=== PATIENT | male | born 1935 | race Caucasian/White ===

== ENCOUNTER → 2020-06-12 13:43 | Outpatient (BNVA) | payer MEDICARE, MEDICAID, SELFPAY | PROVIDERS: PCP Family Medicine; Visit Provider Internal Medicine Rheumatology | DX: M05.79 Rheumatoid arthritis with rheumatoid factor of multiple sites without organ or systems involvement (principal); Z79.899 Other long term (current) drug therapy; Z11.59 Encounter for screening for other viral diseases; Z11.1 Encounter for screening for respiratory tuberculosis; M19.90 Unspecified osteoarthritis, unspecified site; M21.222 Flexion deformity, left elbow; M24.521 Contracture, right elbow; M21.261 Flexion deformity, right knee; M21.262 Flexion deformity, left knee | CPT/HCPCS: 36415; 82306; 85651; 86140; 86431; 86480; 86704; 86803; 87340; 99204 ==

== ENCOUNTER 2021-10-11 07:56 | Emergency (ER) | payer MEDICARE, MEDICAID, SELFPAY ==
[2021-10-11 08:04] VITALS: BP 126/81; PULSE 95; RESP 18; TEMP 36.2; O2SAT 98; BMI 20.5
--- NOTE | 2021-10-11 08:20 | CTR_ITS ---
PROCEDURE INFORMATION: Exam: CT Head Without Contrast Exam date and time: 10/11/2021 8:20 AM Age: 86 years old Clinical indication: Episode of dizziness TECHNIQUE: Imaging protocol: Computed tomography of the head without contrast. Radiation optimization: All CT scans at this facility use at least one of these dose optimization techniques: automated exposure control; mA and/or kV adjustment per patient size (includes targeted exams where dose is matched to clinical indication); or iterative reconstruction. COMPARISON: No relevant prior studies available. RADIATION DOSE METRICS: Total DLP (mGy-cm): 729.91 FINDINGS: Brain: No acute appearing brain parenchymal abnormality. No intracranial hemorrhage. No extraaxial fluid collections. There is diffuse cerebral atrophy. Cerebral ventricles: No hydrocephalus when allowing for the atrophy. Paranasal sinuses: Mild mucoperiosteal thickening. Mastoid air cells: Bilateral mastoid air cell effusions, more so on the right. Auditory system: Cerumen in both external auditory canals, more so on the left. The internal auditory canals are within normal limits. Vasculature: There is calcified atherosclerotic plaque involving the both cavernous internal carotid arteries as well as the V4 segments of both vertebral arteries. Bones/joints: No calvarial fracture. Soft tissues: No acute soft tissue abnormality. CT/CT head wo con* [id number] IMPRESSION: No acute intracranial abnormality.
--- NOTE | 2021-10-11 08:21 | W.ED.NAVMDI ---
HPI - Nausea/Vomiting/Diarrhea General: Chief complaint: Nausea/Vomiting/Diarrhea Stated complaint: Hasnt eaten, dizzy, vomitting Time Seen by Provider: 10/11/21 08:08 History of Present Illness: Patient is an 86-year-old male comes to the ED with nausea and vomiting. Symptoms started yesterday around 4 PM. He was outside walking in his front yard when he felt some dizziness. He describes the dizziness as sort of a spinning sensation. He got really nauseous and then went inside to sit down in his recliner. He ended up having multiple episodes of emesis after that. Denies any chest pain, shortness of breath or syncopal episode. His dizziness resolved in the evening. He was still having nausea and tried to drink some water later that night and was unable to keep it down and threw it back up. This morning he got up and he wasn't having any dizziness but tried to take a sip of Sprite and it caused him to dry heave. Endorses still having nausea currently but no other symptoms. Denies any episode like this in the past. Patient does have a history of cataracts and right and has had multiple surgeries to address cataracts. He currently sees Dr. Shirley and has an appointment with him on this coming October 14. Right eye vision is still cloudy and he can hardly see out of it which has been going on now since March 2021 when he has most recent cataract surgery. Patient also says he has had increased pressures in right eye that Dr. Shirley has him using eyedrops daily to help with that. Associated nausea: Yes Associated symtoms: Reports dizziness and nausea; Denies change in vision, chest pain, dysuria, fatigue, headache(s) or palpitations Review of Systems Const: Denies: fever(s), chills or fatigue Eyes: Denies: change in vision or eye discomfort ENMT: Denies: throat pain, odynophagia, nasal discharge or nasal congestion Card: Denies: chest pain, palpitations, edema, swelling of feet/ankles, dyspnea on exertion or orthopnea Resp: Denies: dyspnea, productive cough or non-productive cough GI: Reports: nausea and vomiting; Denies: abdominal pain, diarrhea, constipation or hematochezia : Denies: flank pain, difficulty urinating, dysuria or hematuria Musc: Denies: neck pain, back pain or extremity swelling Skin/Breast: Denies: rash or new lesions Neuro: Reports: dizziness; Denies: headache(s), numbness in extremities, weakness in extremities or frequent falls PFSH ED PFSH: Medical History 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, left knee Flexion deformity, right knee High risk medication use History of skin cancer in adulthood Immunization counseling Joint pain Osteoarthritis Seropositive rheumatoid arthritis of multiple sites Surgical History History of cholecystectomy Family History Other Cancer Diabetes Hx of migraines Denies family history of Rheumatoid arthritis Lupus Lung disease Hypertension Stroke Social History Smoking and tobacco status: former smoker Alcohol intake: former History of recent travel: No Physical Exam Const: COMMON NORMALS: no acute distress, patient oriented x3 and alert GENERAL APPEARANCE: cooperative and comfortable HENMT: COMMON NORMALS: normocephalic HEAD & SCALP: normocephalic MOUTH: Normal oral and palatal mucosa present THROAT: posterior oropharynx normal and uvula midline Eye: COMMON NORMALS: Equal, round and reactive pupils present PUPIL: Yes Equal, round and reactive pupils present Neck/C-Spine: COMMON NORMALS: supple GENERAL: Yes normal visual inspection Resp: COMMON NORMALS: normal respiratory effort, No retractions, No use of accessory muscles and clear to auscultation bilaterally AUSCULTATION: clear to auscultation bilaterally Cardio: COMMON NORMALS: regular rate, regular rhythm, S1 normal heart sound present, S2 normal heart sound present, No gallops present (Cardio), No clicks present (Cardio), No murmurs present (Cardio) and Peripheral pulses 2+ throughout RATE: regular rate RHYTHM: regular rhythm HEART SOUNDS: S1 normal heart sound present and S2 normal heart sound present PERIPHERAL PULSES: Peripheral pulses 2+ throughout GI: COMMON NORMALS: Normal to inspection, nondistended, normoactive bowel sounds present, Soft to palpation, non-tender and no masses PALPATION: Yes Soft to palpation : COMMON NORMALS: Yes no CVA tenderness BLADDER/KIDNEY EXAM: Yes no CVA tenderness Back/Pelvis: COMMON NORMALS: no CVA tenderness Extremity: COMMON NORMALS: normal to inspection and no pedal edema Neuro: COMMON NORMALS: patient oriented x3, CN's II-XII intact bilaterally, moves all extremities, no focal motor deficits and no sensory deficits noted SENSORIUM/ORIENTATION: Yes alert SENSORY EXAM: Yes extremities (intact) MOTOR EXAM: 5/5 motor strength present throughout Skin: GENERAL SKIN EXAM: dry skin Course ED course: I talked with Dr. Addison about patient case and his episode of dizziness. Dr. Addison reviewed all the labs, CT of head and EKGs. We both went in and talked with patient about plan of care and further evaluation of dizziness. Dr. Addison wanted patient to do an MRI of his head here in the ED. Patient said he did not want to do an MRI of his head. I discussed with patient, his daughter and while in the room about potential risks of not performing the MRI to rule out stroke. Patient understood and still agreed that he did not want to get the MRI imaging today and would like to go home. He says he is not having any current dizziness. He agreed he would sign AMA form. Reevaluation(s): Reevaluation #1: Patient's heart rate has been fluctuating a lot while here in the ED. He is not complaining of any palpitations and denies any history of any arrhythmias. Denies any chest pain currently. Ordered an EKG, troponin and BNP patient to look at heart. Time: 09:47 Reevaluation #2: After patient received a liter of IV fluids and Zofran he says his nausea has improved. He states that he is feeling better. We gave him some p.o. water and he is able to keep it down and not having any episodes of emesis or dry heaving. Time: 12:25 Vital Signs: Vital signs: Vital Signs Temperature 98.1 F 10/11/21 13:34 Pulse Rate 20 L 10/11/21 13:34 Respiratory Rate 18 10/11/21 13:34 Blood Pressure 127/72 10/11/21 09:30 Pulse Oximetry 96 10/11/21 09:30 MDM - Nausea/Vomiting/Diarrhea Medical Decision Making Patient is an 86-year-old male comes to the ED with nausea and vomiting episode of dizziness. Labs are unremarkable. Troponin negative. EKG showed no ST segment elevation or depression seen. CT of head showed no acute findings. I talked with Dr. Addison about patient case and his episode of dizziness. Dr. Addison reviewed all the labs, CT of head and EKGs. We both went in and talked with patient about plan of care and further evaluation of dizziness. Dr. Addison wanted patient to do an MRI of his head here in the ED. Patient said he did not want to do an MRI of his head. I discussed with patient, his daughter and while in the room about potential risks of not performing the MRI to rule out stroke. Patient understood and still agreed that he did not want to get the MRI imaging today and would like to go home. Patient's and daughter agreed with patient's decision. says he is not having any current dizziness. He agreed he would sign AMA form and discharged home. Lab Data I reviewed the patient's lab results. : 10/11/21 08:27 10/11/21 08:[address] 10/11/21 08:20 IMPRESSION: No acute intracranial abnormality. Laboratory Results WBC 14.2 10^3/uL (4.0-10.0) H 10/11/21 08: RBC 4.97 10^6/uL (4.1-5.3) 10/11/21 08: Hgb 16.5 g/dL (11.7-16.6) 10/11/21 08: Hct 48.7 % (42.0-52.0) 10/11/21 08: MCV 98.0 fl (80-94) H 10/11/21 08: MCH 33.2 pg (28.0-34.0) 10/11/21 08: MCHC 33.9 g/dL (30.0-36.0) 10/11/21: RDW 13.6 % (12.1-15.1) 10/11/21: Plt Count 184 10^3/cmm (130-400) 10/11/21 08: MPV 9.5 fL (7.4-10.4) 10/11/21 08: Neut % (Auto) 85.8 % 10/11/21 08: Lymph % (Auto) 6.3 % 10/11/21 08: [place] % (Auto) 6.9 % 10/11/21 08:27 Eos % (Auto) 0.3 % 10/11/21 08:27 Baso % (Auto) 0.3 % 10/11/21 08: Neut # (Auto) 12.17 10^3/uL (1.8-7.7) H 10/11/21 08:27 Lymph # (Auto) 0.9 10^3/uL (0.8-4.8) 10/11/21 08: [place] # (Auto) 1.0 10^3/uL (0.2-0.9) H 10/11/21 08:27 Eos # (Auto) 0.0 10^3/uL (0.0-0.8) 10/11/21 08: Baso # (Auto) 0.0 10^3/uL (0.0-0.1) 10/11/21 08: Nucleated RBC % (auto) 0 % 10/11/21 08: Nucleated RBCs # 0.0 /100WBC 10/11/21 08:27 Sodium 136 mmol/L (136-145) 10/11/21 08: Potassium 3.8 mmol/L (3.5-5.1) 10/11/21 08: Chloride 97 mmol/L (98-107) L 10/11/21 08:27 Carbon Dioxide 25 mmol/L (22-29) 10/11/21 08:27 Anion Gap 17.8 (5-19) 10/11/21 08:27 BUN 15 mg/dL (8-23) 10/11/21 08: Creatinine 0.7 mg/dL (0.7-1.2) 10/11/21 08:27 GFR Calculation Not Reportable 10/11/21 08: Glucose 128 mg/dL (65-115) H 10/11/21 08:27 Calculated Osmolality 284 mOsm/kg (285-295) L 10/11/21 08:27 Calcium 9.9 mg/dL (8.5-10.5) 10/11/21 08:27 Total Bilirubin 1.0 mg/dL (0.15-1.2) 10/11/21 08:27 AST 22 U/L (0-40) 10/11/21 08:27 ALT 17 U/L (0-41) 10/11/21 08: Alkaline Phosphatase 125 IU/L (40-130) 10/11/21 08:27 Troponin T Baseline 14 ng/L (0-15) 10/11/21 08: Troponin T 120 Minute 15.99 ng/L (0-15) H 10/11/21 11:20 Delta Troponin T 1.99 ABS# (0-10) 10/11/21 11:20 NT-Pro-B Natriuret Pep 468 pg/mL (0-450) H 10/11/21 08:27 Total Protein 7.0 g/dL (6.6-8.7) 10/11/21 08: Albumin 4.9 g/dL (3.5-5.2) 10/11/21 08: Globulin 2.1 g/dL (1.3-4.6) 10/11/21 08: Lipase 15 U/L (13-60) 10/11/21 08:27 Urine Color Yellow (Yellow) 10/11/21 10:31 Urine Appearance Clear (CLEAR) 10/11/21 10:31 Urine pH 7 (5-7) 10/11/21 10:31 Ur Specific [place] 1.010 (1.005-1.030) 10/11/21 10:31 Urine Protein 1+ (Negative) H 10/11/21 10:31 Urine Glucose (UA) Norm (Normal) 10/11/21 10:31 Urine Ketones Negative (Negative) 10/11/21 10:31 Urine Blood 2+ (Negative) H 10/11/21 10:31 Urine Nitrate Negative (Negative) 10/11/21 10:31 Urine Bilirubin Neg (Negative) 10/11/21 10:31 Urine Urobilinogen Norm mg/dL (Negative) 10/11/21 10:31 Ur Leukocyte Esterase Negative (Negative) 10/11/21 10:31 Urine RBC 5-10 /hpf (0-2) H 10/11/21 10:31 Urine WBC Rare /hpf (0-5) 10/11/21 10:31 Ur Squamous Epith Cells Rare /hpf (0-5) 10/11/21 10:31 Amorphous Sediment Not Reportable 10/11/21 10:31 Urine Bacteria None /hpf (NONE) 10/11/21 10:31 Urine Mucus Trace /hpf 10/11/21 10:31 EKG Data EKG 2: EKG interpretation date: 10/11/21 Interpretation: Sinus rhythm with occasional supraventricular premature complexes. No ST segment elevation or depression seen. Discharge Plan Discharge Patient Disposition: Home Clinical Impression: Episode of dizziness, Mild nausea and vomiting Condition: Stable Prescriptions: New ondansetron 4 mg tablet,disintegrating 4 mg PO Q8H PRN (Reason: nausea and vomiting) Qty: 15 0RF No Action ibuprofen 200 mg capsule 600 mg PO Q8H 0RF Glucos Chond Cplx Advanced 750 mg-100 mg- 125 mg-1.65 mg tablet See Rx Instructions .ROUTE .COMPLEX 0RF Rx Instructions: Takes daily3 cholecalciferol (vitamin D3) 125 mcg (5,000 unit) capsule 125 mcg PO DAILY 0RF ascorbic acid (vitamin C) 1,000 mg tablet 1 gm PO DAILY 0RF folic acid 1 mg tablet 1 mg PO DAILY Qty: 90 0RF methotrexate sodium 2.5 mg tablet See Rx Instructions PO Q7D Qty: 40 0RF Rx Instructions: Split dose, 4tabs in am and 4tabs in pm on same day once a week. Xeljanz 5 mg tablet 5 mg PO BID Qty: 60 0RF Discharge Orders: Discharge ED (Routine); Ordered 10/11/21 Ordered By: Doug Antonio Referrals: Sage Black MD [Primary Care Provider] - Discharge Diet: Regular Discharge Activity: Increase activity as tolerated Activity Restrictions/Additional Instructions: Follow-up with primary care physician in the next 3 to 5 days for reevaluation. Take medications as prescribed. Make sure you drink plenty of fluids and stay hydrated. Return to the ER or your medical provider if condition worsens or you have any other episodes of dizziness. Please read and understand discharge instructions. Thank you for choosing [facility] for your healthcare needs today. Please realize this is an emergency room and that we are providing you with a medical screening exam and this may not be complete and all inclusive of all the testing and or work up that you may need to determine your ailment or severity of your illness. It is very important that you follow up as instructed or that you return to the Emergency Department should you have concerns or if your condition changes or worsens in any way. Coding Level of Care Code ED Bi Report Developer for Chg Fwd Exam Comprehensive
[2021-10-11 08:30] VITALS: BP 134/81; PULSE 91
[2021-10-11] MEDS: ondansetron 2 mg/ML SDV 2 mL 4 MG IVP (08:37)
[2021-10-11] MEDS: sodium chloride 0.9% 1,000 ML 999 ML IV (08:38)
[2021-10-11 08:41] LABS: Basophils % 0.3 %; Eosinophils % 0.3 %; Hematocrit 48.7 % (42.0-52.0); Hemoglobin 16.5 g/dL (11.7-16.6); Lymphocytes # 0.9 10^3/uL (0.8-4.8); Lymphocytes % 6.3 %; Mean Corpuscular HGB Conc 33.9 g/dL (30.0-36.0); Mean Corpuscular Hemoglobin 33.2 pg (28.0-34.0); Mean Platelet Volume 9.5 fL (7.4-10.4); Monocytes % 6.9 %; Neutrophils # 12.17 10^3/uL (1.8-7.7); Neutrophils % 85.8 %; Nucleated Red Blood Cells % 0 %; Platelet Count 184 10^3/cmm (130-400); Red Blood Count 4.97 10^6/uL (4.1-5.3); Red Cell Distribution Width 13.6 % (12.1-15.1); White Blood Count 14.2 10^3/uL (4.0-10.0)
[2021-10-11 08:58] LABS: Alanine Aminotransferase 17 U/L (0-41); Albumin Level 4.9 g/dL (3.5-5.2); Alkaline Phosphatase 125 IU/L (40-130); Anion Gap 17.8 (5-19); Aspartate Amino Transferase 22 U/L (0-40); Blood Urea Nitrogen 15 mg/dL (8-23); Calcium 9.9 mg/dL (8.5-10.5); Carbon Dioxide 25 mmol/L (22-29); Chloride 97 mmol/L (98-107); Globulin 2.1 g/dL (1.3-4.6); Glucose 128 mg/dL (65-115); Lipase 15 U/L (13-60); Osmolality Calculated 284 mOsm/kg (285-295); Potassium 3.8 mmol/L (3.5-5.1); Sodium 136 mmol/L (136-145)
[2021-10-11 09:01] VITALS: BP 136/78; PULSE 91; RESP 18; TEMP 36.6; O2SAT 99
[2021-10-11 09:30] VITALS: BP 127/72; PULSE 87; RESP 18; TEMP 36.7; O2SAT 96
--- NOTE | 2021-10-11 09:46 | ECG_ITS ---
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 Measurements Intervals [place] Rate: 92 P: 88 IN: 183 QRS: 18 QRSD: 80 T: 48 QT: 333 QTc: 413 Interpretive Statements SINUS RHYTHM WITH OCCASIONAL SUPRAVENTRICULAR PREMATURE COMPLEXES LEFT ATRIAL ENLARGEMENT [-0.15mV P-WAVE IN V1/V2] SEPTAL MYOCARDIAL INFARCTION , PROBABLY OLD [40+ ms Q WAVE IN V1/V2] No previous ECG available for comparison Electronically Signed On 10-11-2021 21:52:05 CALCULATOR OPERATOR by Joey Chavez M.D. [id number]
[2021-10-11 10:19] LABS: Troponin(5th) Baseline 14 ng/L (0-15)
[2021-10-11 10:29] LABS: NT Pro B Type Natriuretic Pept 468 pg/mL (0-450)
--- NOTE | 2021-10-11 11:46 | ECG_ITS ---
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 Measurements Intervals [place] Rate: 87 P: 75 DC: 154 QRS: 35 QRSD: 98 T: 64 QT: 361 QTc: 437 Interpretive Statements SINUS RHYTHM WITH OCCASIONAL SUPRAVENTRICULAR PREMATURE COMPLEXES POSSIBLE RIGHT VENTRICULAR CONDUCTION DELAY [RSR (QR) IN V1/V2] SEPTAL MYOCARDIAL INFARCTION , PROBABLY OLD [40+ ms Q WAVE IN V1/V2] Compared to ECG 10/11/2021 08:56:52 Atrial abnormality no longer present Myocardial infarct finding still present Electronically Signed On 10-12-2021 17:16:30 DIRECTOR MEDICAL by Joey Chavez M.D. [id number]
[2021-10-11 11:52] LABS: Add Urine Microscopic? YES; Bilirubin Urine Neg (Negative); Blood Urine 2+ (Negative); Glucose Urine UA Norm (Normal); Ketones Urine Negative (Negative); Leukocyte Esterase Urine Negative (Negative); Nitrate Urine Negative (Negative); Protein Urine 1+ (Negative); Urine Appearance Clear (CLEAR); Urine Color Yellow (Yellow); Urobilinogen Urine Norm (Negative); pH Urine 7 (5-7)
[2021-10-11 11:53] LABS: Squamous Epithelial Cell Urine RARE /hpf (0-5); WBC Urine RARE /hpf (0-5)
[2021-10-11 11:54] LABS: Add Urine Culture? No; Mucus Urine TRACE /hpf
[2021-10-11 12:00] LABS: Troponin 5 2HR 15.99 ng/L (0-15)
[2021-10-11 12:03] LABS: Troponin 5 2HR Delta 1.99 ABS# (0-10)
[2021-10-11 13:34] VITALS: PULSE 20; RESP 18; TEMP 36.7
--- NOTE | 2021-10-11 13:39 | PC.NURSE ---
Reviewed all dc instr w dtr & spouse, dc'd IID, declined WC, ambulated from unit.
== END 2021-10-11 13:54 | disposition home or self-care (01) ==
PROVIDERS: Emergency Provider Physician Assistant; PCP Family Medicine
DX: R11.2 Nausea with vomiting, unspecified (principal); R42 Dizziness and giddiness; Z87.891 Personal history of nicotine dependence
CPT/HCPCS: 36415; 70450; 80053; 81001; 83690; 83880; 84484; 85025; 93005; 96361; 96374; 99284; J2405; J7030

== ENCOUNTER 2024-01-16 08:39 | Inpatient (IN) | payer MEDICARE, MEDICAID, SELFPAY ==
[2024-01-16] VITALS (8 sets, daily range): BP systolic 102–134; BP diastolic 59–81; PULSE 80–118; RESP 14–18; TEMP 36.4–37.2; O2SAT 93–99; BMI 18.2; BMI 20.4
--- NOTE | 2024-01-16 08:44 | XR_ITS ---
WS: [id number] XR chest 1V portable [id number] REASON FOR EXAM: dyspnea/cough FINDINGS: No previous examinations for comparison. Normal heart size. Significant tortuosity and ectasia of the thoracic aorta. Calcified granulomas disease in both hemithoraces. No acute pulmonary parenchymal abnormality. Increased opacity in the apex of the right hemithorax which may in part be due to overlying soft tiss ue. A more significant abnormality cannot be excluded from this examination. XR/XR chest 1V portable [id number] IMPRESSION: No definite acute abnormality. Increased density in the apex of the right hemit horax. Possibly a positional issue with increased overlying soft tissue. This r egion may be imaged on the scheduled CT scan of the cervical spine. Will review and this examination is completed.
[2024-01-16 09:11] LABS: Basophils % 0.7 %; Eosinophils # 0.2 10^3/uL (0.0-0.8); Eosinophils % 5.4 %; Hematocrit 28.4 % (37-53); Lymphocytes # 0.6 10^3/uL (0.8-4.8); Lymphocytes % 20.2 %; Mean Corpuscular HGB Conc 33.5 g/dL (30-55); Mean Corpuscular Hemoglobin 34.2 pg (27-33); Mean Corpuscular Volume 102.2 fl (82-101); Mean Platelet Volume 12.1 fL (7.4-10.4); Monocytes # 0.3 10^3/uL (0.2-0.9); Monocytes % 11.9 %; Neutrophils # 1.68 10^3/uL (1.8-7.7); Neutrophils % 60.7 %; Nucleated Red Blood Cells % 0 %; Platelet Count 46 10^3/cmm (157-399); Red Blood Count 2.78 10^6/uL (3.85-5.65); Red Cell Distribution Width 15.5 % (12.1-15.1); White Blood Count 2.77 10^3/uL (3.29-11.43)
--- NOTE | 2024-01-16 09:13 | XR_ITS ---
WS: [email or web address] XR hip RT 2-3V wo/w pel* [id number] REASON FOR EXAM: trauma FINDINGS: Intertrochanteric fracture which extends inferior to the lesser trochanter. Mild lateral displacement of a greater trochanteric fracture fragment and mild medial displacement of the lesser trochanteric fragment. XR/XR hip RT 2-3V wo/w pel* [id number] IMPRESSION: Intertrochanteric fracture right hip as above.
--- NOTE | 2024-01-16 09:17 | CT_ITS ---
WS: [id number] CT HEAD NONCONTRAST HISTORY: trauma TECHNIQUE: Contiguous axial imaging performed through the brain in 2.5 mm imaging. Bone and soft tiss ue windows. Sagittal and coronal reformats reviewed. All CT scans at [facility] use at least one of these dose optimization techniques: automated exposure control; mA and/or kV adjustment per pa tient size (includes targeted exams where dose is matched to clinical indication); or iterative recon struction. DLP: 2372.44 mGy.cm COMPARISON: 10/11/2021 No acute intracranial hemorrhage, midline shift or mass effect. Moderate atrophy and small vessel ischemic disease. No acute infarct. Moderate cerebellar atrophy. Ventricles: Ventricles and extra-axial spaces are dilated on the basis of atrophy. No inferior displacement of the cerebellar tonsils. Paranasal sinuses: Mucoperiosteal thickening throughout the ethmoid air cells. Mastoid air cells: Well pneumatized. Large amount of cerumen in the external auditory canals. Calvarium and scalp: No skull fracture. There is soft tissue edema centered over the RIGHT facial str uctures as visualized. This may be posttraumatic or infectious. CT/CT head wo con* [id number] IMPRESSION: 1. No acute intracranial hemorrhage or edema. 2. Moderate atrophy and small vessel ischemic disease. 3. No skull fracture. 4. Moderate soft tissue edema centered over the visualized RIGHT facial bones. This may be posttraumatic or infectious.
--- NOTE | 2024-01-16 09:17 | CT_ITS ---
WS: [id number] CT CERVICAL SPINE HISTORY: trauma TECHNIQUE: Contiguous 2.0 mm axial imaging performed through the entire cervical spine. Sagittal and coronal reformats also performed. All CT scans at [facility] use at least one of these dose o ptimization techniques: automated exposure control; mA and/or kV adjustment per patient size (include s targeted exams where dose is matched to clinical indication); or iterative reconstruction. DLP: 2372.44 mGy.cm COMPARISON: None available. Scoliosis cervical spine. Disc spaces are significantly narrowed throughout. Osteopenia. Lateral mass es are aligned and the odontoid process is intact. Erosive type changes are noted along several of the endplates along with disc base narrowing. Facet j oints remain normally aligned. Ankylosis across the LEFT C3-4 facet joint. C2-C3: Normal. C3-C4: Osteophytic ridging and facet joint arthritis and foraminal stenosis. C4-C5: Osteophytic ridging and facet arthritis. C5-C6: Marked osteophytic ridging with moderate bilateral facet joint arthritis and foraminal stenosi s. C6-C7: Osteophytic ridging encroaching upon the ventral thecal sac. Mild central and bilateral forami nal stenosis. C7-T1: Mild facet joint arthritis and foraminal narrowing. Vertebral artery plaque. Soft tissue edema and anasarca. Cervical carotid artery atherosclerosis. CT/CT cervical spin wo con* [id number] IMPRESSION: 1. No acute cervical spine fracture. 2. Multilevel facet joint arthritis and foraminal stenoses. 3. Osteopenia.
[2024-01-16 09:25] LABS: Alanine Aminotransferase 23 U/L (0-41); Albumin Level 2.9 g/dL (3.5-5.2); Alkaline Phosphatase 57 U/L (40-130); Aspartate Amino Transferase 21 U/L (0-40); Blood Urea Nitrogen 23 mg/dL (8-23); Calcium 8.5 mg/dL (8.5-10.5); Carbon Dioxide 21 mmol/L (22-29); Chloride 106 mmol/L (98-107); Creatine Phosphokinase 63 U/L (39-308); Creatinine Clr Calc Pharmacy 32.7594; Globulin 2.2 g/dL (1.3-4.6); Glucose 101 mg/dL (65-115); Osmolality Calculated 288 mOsm/kg (285-295); Sodium 137 mmol/L (136-145); Total Bilirubin 0.4 mg/dL (0.15-1.2); Total Protein 5.1 g/dL (6.6-8.7)
--- NOTE | 2024-01-16 09:25 | PC.PHAR ---
KATIA LOUIS [phone] PT HAS NOT TAKEN METHOTREXATE 2.5MG LAST FILL 12/07/23 28DS. CLEOCIN 300 MG DCD AND STARTED BACTRIM DS TWICE DAILY FOR 10 DAYS. ZELJANZ 5 MG FILLED11/17/23 30DS-NOT IN PT MEDICATIONS AND IS NOT TAKING. PER ESDRAS.
[2024-01-16 09:26] LABS: Lactic Sepsis W/Reflex 1.4 mmol/L (0.5-2.2)
--- NOTE | 2024-01-16 09:32 | XRR_ITS ---
PROCEDURE INFORMATION: Exam: XR Right Knee Exam date and time: 01/16/2024 9:39 AM Age: 88 years old Clinical indication: Injury or trauma; Fall; Blunt trauma; Knee; Right TECHNIQUE: Imaging protocol: Radiologic exam of the right knee. Views: 1 or 2 views. COMPARISON: CR XR femur RT min 2V* [id number] 01/16/2024 9:34 AM FINDINGS: Bones/joints: Severe arthritic changes with total or near total tricompartmental joint space narrowing, subchondral cystic/sclerotic changes, marginal spurring. Lateral shifting of proximal tibia relative to distal femur. Otherwise, no additional new appearing displaced fracture nor dislocation seen. Slight suprapatellar fluid. Soft tissues: Normal. Vasculature: Arterial calcification. XR/XR knee RT 1-2V [id number] IMPRESSION: Severe arthritic changes.
--- NOTE | 2024-01-16 09:32 | XR_ITS ---
WS: [email or web address] XR femur RT min 2V* [id number] REASON FOR EXAM: fracture FINDINGS: Below the level of the intertrochanteric fracture of the femur is intact. There is severe ostial arthropathy in the right knee joint space with joint space narrowing, subchond ral sclerosis and large osteophytosis. XR/XR femur RT min 2V* [id number] IMPRESSION: No fracture of the femur distal to the intertrochanteric fracture. Severe osteoarthropathy in the right knee.
[2024-01-16] MEDS: vancomycin 1,000 MG in sodium chloride 0.9% 250 ML 250 MG IV (09:47)
[2024-01-16] MEDS: acyclovir 1,000 MG in sodium chloride 0.9% 250 ML 270 MG IV (09:47)
[2024-01-16] MEDS: sodium chloride 0.9% 1,632.93 ML 1632.93000000000006 ML IV (09:47)
[2024-01-16 09:52] LABS: Magnesium 1.9 mg/dL (1.7-2.3)
[2024-01-16 09:53] LABS: Slide Review Slide Review Perform
[2024-01-16] MEDS: ondansetron 2 mg/ML SDV 2 mL 4 MG IVP (09:56)
[2024-01-16] MEDS: morphine 4 mg/mL SDV 1 mL IVP (09:56)
--- NOTE | 2024-01-16 11:01 | P.HP_ITS ---
Providers/Chief Complaint 2 Admitting Physician: Carlo Ram MD Primary Care Provider: Sage Black MD Chief Complaint: fall, ams History of Present Illness Kaleb Hu is a 88 year old male presenting from home with rash as well as fall. Patient is extremely hard of hearing, and has some dementia and etiology of fall is not exactly known. They have noted for the last 7 to 9 days he had a rash on his face and when they saw him today it is definitely progressed. Patient himself is complaining of some hip pain but denies any headache or neck pain. I suspect he is also not been eating well. Definitely history is not ideal. Family recently have been involved in his care in the last 2 weeks after of his girlfriend who he was living with. They know some of his history but not all. In the emergency department he received a large bolus of fluids, acyclovir, Zofran and morphine, and vancomycin. Review of Systems 2 General: Reports: 10 or more systems reviewed and unremarkable except in HPI and below and Other (Extremely limited secondary to patient hearing and dementia) Card: Denies: chest pain Resp: Denies: dyspnea Medications/Allergies Home Medications Medication Instructions Recorded Confirmed Last Taken Type ascorbic acid (vitamin C) 1,000 mg 1 gm PO DAILY 06/12/20 01/16/24 01/14/24 History tablet cholecalciferol (vitamin D3) 125 125 mcg PO DAILY 06/12/20 01/16/24 01/14/24 History mcg (5,000 unit) capsule [id number] 3 tab PO DAILY 06/12/20 01/16/24 01/14/24 History 750 mg-100 mg-125 mg-1.65 mg tablet (Glucosamine Chondroit Complx Advan) folic acid 1 mg tablet 1 mg PO DAILY #90 tabs 09/04/20 01/16/24 01/15/24 Rx famotidine 10 mg tablet (Pepcid AC) 10 mg PO DAILY 01/16/24 01/16/24 01/14/24 History gabapentin 300 mg capsule 300 mg PO BEDTIME 01/16/24 01/16/24 01/15/24 History ibuprofen 600 mg tablet 600 mg PO TID PRN Pain 01/16/24 01/16/24 01/15/24 History loratadine 10 mg tablet 10 mg PO DAILY 01/16/24 01/16/24 01/14/24 History mupirocin 2 % topical ointment 1 applic topical TID 01/16/24 01/16/24 01/15/24 History sulfamethoxazole 800 1 tab PO BID 01/16/24 01/16/24 01/15/24 History mg-trimethoprim 160 mg tablet Allergies Allergy/AdvReac Type Severity Reaction Status Date / Time No Known Allergies Allergy Verified 06/12/20 14:22 PFSH Acute 2 PFSH: Medical History Flexion deformity, left knee Flexion deformity, right knee 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 Osteoarthritis Immunization counseling High risk medication use Seropositive rheumatoid arthritis of multiple sites Joint pain History of skin cancer in adulthood Surgical History History of cholecystectomy Family History Other Cancer Diabetes Hx of migraines Denies family history of Rheumatoid arthritis Lupus Lung disease Hypertension Stroke Social History Smoking and tobacco/nicotine status: former use of tobacco/nicotine Alcohol intake: former Vitals/I&O/Wt Last Vital Signs Temp 97.6 F 01/16/24 08:42 Pulse 113 H 01/16/24 10:56 Resp 16 01/16/24 10:56 BP 110/66 01/16/24 10:56 Pulse Ox 95 01/16/24 10:56 O2 Del Method Room Air 01/16/24 10:56 01/15/24 01/16/24 01/16/24 22:59 06:59 14:59 Intake Total 2152.93 / 2152.93 Balance 2152.93 / 2152.93 Weight last 48 hrs Weight 54.431 kg Physical Exam 2 Narrative: General exam is extremely hard of hearing male, with an extensive rash. HEENT: Left pupil reactive, round. Right is difficult to examine secondary to edema face and extensive zoster over right side of face. Oropharynx with dentures. Is difficult to evaluate whether there is any intraoral mucosal involvement. Lips appear dry Neck supple no lymphadenopathy thyromegaly Cardiovascular tachycardic, no murmur Lungs clear no wheezing or crackles Abdomen is soft, scaphoid, no obvious organomegaly exam is deferred Extremities no cyanosis clubbing. Extensive zoster overlying what appears to be an unstageable soft right heel ulcer. Neuro confused Skin extensive zoster, both sides of chest, right face, right leg. I have also heard it is a left dermatome on his back but I did not turn him secondary to his hip fracture Data 01/16/24 09:00 01/16/24 09:00 Other Labs: LFTs are normal Albumin 2.9 Lactic acid 1.4 Calcium normal Blood culture ordered Urinalysis ordered Platelet transfusion was ordered with anticipation of likely hip surgery CT head no fracture. I reviewed this as well CT cervical spine pending Hip and pelvis demonstrate a right hip fracture Chest x-ray which I reviewed no infiltrate. Upper right hemothorax apex obscured I have ordered a right foot x-ray. A&P Assessment and plan (1) Closed right hip fracture: Patient with closed hip fracture Pain control Orthopedic consultation Overall risk moderate to high considering disseminated zoster (2) Disseminated varicella: Patient with disseminated zoster Acyclovir Ophthalmology consultation Isolation precautions (3) Anemia: Anemic from baseline Protonix prophylactically Stool Hemoccult, anemia panel Repeat CBC tomorrow (4) Thrombocytopenia: Patient with significant thrombocytopenia with a platelet count of 46,000 going to surgery Platelet transfusion is appropriate prior to surgery. Repeat CBC tomorrow. Transfused 2 units now, and repeat platelet count with early a.m. labs. Will have 2 more units to transfuse if needed prior to surgery. (5) Seropositive rheumatoid arthritis of multiple sites: Hold any immune suppressants. From my understanding he was on methotrexate. (6) Cellulitis: Concern of cellulitis right heel. Continue vancomycin. Blood culture. Plan Multiple other medical problems outlined in past medical history Allow natural SCDs for DVT prophylaxis, anticoagulation contraindicated secondary to thrombocytopenia Attestations 2 Medical Necessity Statement*: Will need greater than 2 midnight stay for evaluation and treatment of hip fracture and disseminated zoster Diagnoses Closed right hip fracture S72.001A Disseminated varicella B01.9 Anemia D64.9 Thrombocytopenia D69.6 Seropositive rheumatoid arthritis of multiple sites M05.79 Cellulitis L03.90 Time Spent (min) 56
--- NOTE | 2024-01-16 11:09 | XRR_ITS ---
PROCEDURE INFORMATION: Exam: XR Right Foot Exam date and time: 01/16/2024 11:16 AM Age: 88 years old Clinical indication: Injury or trauma; Fall; Blunt trauma; Foot; Right; Additional info: Pain, edema, skin breakdown TECHNIQUE: Imaging protocol: Radiologic exam of the right foot. Views: 1 or 2 views. COMPARISON: CR XR knee RT 1-2V [id number] 01/16/2024 9:39 AM FINDINGS: Bones/joints: Severe arthritis all right metatarsophalangeal joints with subluxations at these joints. This is likely all chronic. There are associated osseous deformities surrounding these joints. There is no obvious acute fracture or juanis dislocation. Otherwise, unremarkable. Soft tissues: Otherwise, unremarkable soft tissues. Vasculature: Large amount of arterial calcification. XR/XR foot RT 2V [id number] IMPRESSION: 1. No obvious acute findings. 2. Additional details as above.
--- NOTE | 2024-01-16 11:22 | PC.NURSE ---
WHILE PLACING CHACKO THIS NURSE NOTED LARGE LESIONS ON PT GENITALS. DR. HARMON NOTIFIED.
--- NOTE | 2024-01-16 11:26 | ECG_ITS ---
[facility] Test Date: 2024-01-16 Pat Name: Kaleb Hu Department: Room: Gender: Male [employer] Operator: : 1935 Requested By: Carlo Vasquez Order Number: [id number] C[place] MD: Prudencio Logan M.D. Measurements Intervals [place] Rate: 106 P: 70 VT: 141 QRS: 17 QRSD: 94 T: 83 QT: 355 QTc: 472 Interpretive Statements SINUS TACHYCARDIA WITH OCCASIONAL SUPRAVENTRICULAR PREMATURE COMPLEXES ABNORMAL RHYTHM ECG Compared to ECG 10/11/2021 10:40:35 Sinus rhythm no longer present Myocardial infarct finding no longer present Electronically Signed On 01-16-2024 14:30:57 CDT by Prudencio Logan M.D. [id number]
[2024-01-16 11:27] LABS: Add Urine Microscopic? YES; Bilirubin Urine Neg (Negative); Blood Urine Neg (Negative); Glucose Urine UA Norm (Normal); Ketones Urine Negative (Negative); Leukocyte Esterase Urine Negative (Negative); Nitrate Urine Negative (Negative); Protein Urine Trace (Negative); Urine Appearance Clear (CLEAR); Urine Color Yellow (Yellow); Urobilinogen Urine Neg (Negative); pH Urine 5 (5-7)
[2024-01-16 11:28] LABS: Bacteria Urine TRACE /hpf; Calcium Oxalate Crystals Urine 0-4 /hpf; Mucus Urine TRACE /hpf; RBC Urine RARE /hpf (0-2); Squamous Epithelial Cell Urine 0-4 /hpf (0-5); Transitional Epi Cells Urine 0-4 /hpf; WBC Urine 0-4 /hpf (0-5)
[2024-01-16 11:29] LABS: Add Urine Culture? No; Hyaline Casts Urine 0-4 /lpf
--- NOTE | 2024-01-16 11:47 | ED_ITS ---
HPI - General Adult 2 General: Chief complaint: Fall Stated complaint: fall, ams Time Seen by Provider: 01/16/24 08:43 Source: patient Mode of arrival: ambulatory History of Present Illness: 88-year-old male presents to the emergen cy room via EMS after a fall at home complaining of right hip pain. A week ago he was seen by his primary care doctor had a rash on his face that was started on Bactrim and topical antibiotic ointment wounds were cultured and the antibiotic changed according to the son. Son reports over the last 3 to 4 days she he has been markedly worse as far as his cognition he has known dementia and has had for some time. Is also noticed increasing rash on the upper chest and neck on the right side as well as a newly developing rash on the left side. In addition to this he has a heel ulcer on the right foot and similar rash on the right lower extremity extending to the level of the knee Onset (ago): week(s) Associated symptoms: Reports confusion, decreased appetite, malaise, rash and weakness; Deny chest pain, cough, diaphoresis, dyspnea, fevers/chills, headache(s), nausea, palpitations, seizures, short of breath, syncope or vomiting Review of Systems 2 Const: Reports: fatigue and malaise; Denies: fever(s), chills or diaphoresis Card: Denies: chest pain, palpitations or syncope Resp: Denies: dyspnea GI: Denies: abdominal pain, nausea or vomiting : Denies: dysuria, urinary frequency or urinary urgency Musc: Denies: neck pain or back pain Skin/Breast: Reports: rash Neuro: Reports: confusion; Denies: headache(s) PFSH ED 2 PFSH: Medical History Flexion deformity, left knee Flexion deformity, right knee 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 Osteoarthritis Immunization counseling High risk medication use Seropositive rheumatoid arthritis of multiple sites Joint pain History of skin cancer in adulthood Surgical History History of cholecystectomy Family History Other Cancer Diabetes Hx of migraines Denies family history of Rheumatoid arthritis Lupus Lung disease Hypertension Stroke Social History Smoking and tobacco/nicotine status: former use of tobacco/nicotine Alcohol intake: former Physical Exam 2 Const: GENERAL APPEARANCE: cooperative NUTRITIONAL APPEARANCE: cachectic ORIENTATION/CONSCIOUSNESS: Yes awake and Yes confused HENMT: COMMON NORMALS: normocephalic, atraumatic and hearing grossly normal bilaterally HEAD & SCALP: normocephalic and atraumatic Resp: COMMON NORMALS: normal respiratory effort, No retractions, No use of accessory muscles and clear to auscultation bilaterally AUSCULTATION: clear to auscultation bilaterally Cardio: COMMON NORMALS: regular rate, regular rhythm and No murmurs present (Cardio) RATE: regular rate RHYTHM: regular rhythm GI: COMMON NORMALS: Soft to palpation and No hepatosplenomegaly present A USCULTATION: Yes normoactive bowel sounds PALPATION: Yes Soft to palpation, No Tenderness to palpation present (GI), No Guarding due to palpation present (GI) and Yes No hepatosplenomegaly present Extremity: OTHER: Right heel ulcer with varicella like dermatomal rash extending to the level of the knee dried eschars cratered Neurovascular intact right open wound and ulcer. Neuro: OTHER: Patient has multiple dermatome involvement. On the left side of the face including the eye. There is also on the left shoulder and upper chest and the on the right at the T3-4 dermatomal level. Most intensely involved on the face. Skin: OTHER: Varicella rash face, right upper chest right thoracic Course 2 Vital Signs: Vital signs: Vital Signs Temperature 97.6 F 01/16/24 08:42 Pulse Rate 113 H 01/16/24 10:56 Respiratory Rate 16 01/16/24 10:56 Blood Pressure 110/66 01/16/24 10:56 Pulse Oximetry 95 01/16/24 10:56 Oxygen Delivery Me thod Room Air 01/16/24 10:56 MDM - General Adult Medical Decision Making Comminuted right hip fracture intertrochanteric in addition he has disseminated varicella. Anemia and thrombocytopenia. Discussed with Dr. Antonio and with the hospitalist will admit. Medical Records I reviewed the patient's medical records. Lab Data I reviewed the patient's lab results. 01/16/24 09:00 01/16/24 09:00 Radiology Impressions Chest X-Ray 01/16/24 08:44 IMPRESSION: No definite acute abnormality. Increased density in the apex of the right hemithorax. Possibly a positional issue with increased overlying soft tissue. This region may be imaged on the scheduled CT scan of the cervical spine. Will review and this examination is completed. Hip/Pelvis X-Ray 01/16/24 09:13 IMPRESSION: Intertrochanteric fracture right hip as above. Cervical Spine CT 01/16/24 09:17 IMPRESSION: 1. No acute cervical spine fracture. 2. Multilevel facet joint arthritis and foraminal stenoses. 3. Osteopenia. Head CT 01/16/24 09:17 IMPRESSION: 1. No acute intracranial hemorrhage or edema. 2. Moderate atrophy and small vessel ischemic disease. 3. No skull fracture. 4. Moderate soft tissue edema centered over the visualized RIGHT facial bones. This may be posttraumatic or infectious. Femur X-Ray 01/16/24 09:32 IMPRESSION: No fracture of the femur distal to the intertrochanteric fracture. Severe osteoarthropathy in the right knee. Laboratory Results WBC 2.77 10^3/uL (3.29-11.43) L 01/16/24 09:00 RBC 2.78 10^6/uL (3.85-5.65) L 01/16/24 09:00 Hgb 9.50 g/dL (11.27-16.99) L 01/16/24 09:00 Hct 28.4 % (37-53) L 01/16/24 09:00 MCV 102.2 fl (82-101) H 01/16/24 09:00 MCH 34.2 pg (27-33) H 01/16/24 09:00 MCHC 33.5 g/dL (30-55) 01/16/24 09:00 RDW 15.5 % (12.1-15.1) H 01/16/24 09:00 Plt Count 46 10^3/cmm (157-399) L 01/16/24 09:00 MPV 12.1 fL (7.4-10.4) H 01/16/24 09:00 Neut % (Auto) 60.7 % 01/16/24 09:00 Lymph % (Auto) 20.2 % 01/16/24 09:00 [place] % (Auto) 11.9 % 01/16/24 09:00 Eos % (Auto) 5.4 % 01/16/24 09:00 Baso % (Auto) 0.7 % 01/16/24 09:00 Neut # (Auto) 1.68 10^3/uL (1.8-7.7) L 01/16/24 09:00 Lymph # (Auto) 0.6 10^3/uL (0.8-4.8) L 01/16/24 09:00 [place] # (Auto) 0.3 10^3/uL (0.2-0.9) 01/16/24 09:00 Eos # (Auto) 0.2 10^3/uL (0.0-0.8) 01/16/24 09:00 Baso # (Auto) 0.0 10^3/uL (0.0-0.1) 01/16/24 09:00 Nucleated RBC % (auto) 0 % 01/16/24 09:00 Nucleated RBCs # 0.0 /100WBC 01/16/24 09:00 Sodium 137 mmol/L (136-145) 01/16/24 09:00 Potassium 4.0 mmol/L (3.5-5.1) 01/16/24 09:00 Chloride 106 mmol/L (98-107) 01/16/24 09:00 Carbon Dioxide 21 mmol/L (22-29) L 01/16/24 09:00 Anion Gap 14.0 (5-19) 01/16/24 09:00 BUN 23 mg/dL (8-23) 01/16/24 09:00 Creatinine 1.2 mg/dL (0.7-1.2) 01/16/24 09:00 GFR Calculation Not Reportable 01/16/24 09:00 Glucose 101 mg/dL (65-115) 01/16/24 09:00 Calculated Osmolality 288 mOsm/kg (285-295) 01/16/24 09:00 Lactic Acid 1.4 mmol/L (0.5-2.2) 01/16/24 09:00 Calcium 8.5 mg/dL (8.5-10.5) 01/16/24 09:00 Magnesium 1.9 mg/dL (1.7-2.3) 01/16/24 09:00 Total Bilirubin 0.4 mg/dL (0.15-1.2) 01/16/24 09:00 AST 21 U/L (0-40) 01/16/24 09:00 ALT 23 U/L (0-41) 01/16/24 09:00 Alkaline Phosphatase 57 U/L (40-130) 01/16/24 09:00 Creatine Kinase 63 U/L (39-308) 01/16/24 09:00 Total Protein 5.1 g/dL (6.6-8.7) L 01/16/24 09:00 Albumin 2.9 g/dL (3.5-5.2) L 01/16/24 09:00 Globulin 2.2 g/dL (1.3-4.6) 01/16/24 09:00 Urine Color Yellow (Yellow) 01/16/24 10:55 Urine Appearance Clear (CLEAR) 01/16/24 10:55 Urine pH 5 (5-7) 01/16/24 10:55 Ur Specific [place] 1.020 (1.005-1.030) 01/16/24 10:55 Urine Protein Trace (Negative) 01/16/24 10:55 Urine Glucose (UA) Norm (Normal) 01/16/24 10:55 Urine Ketones Negative (Negative) 01/16/24 10:55 Urine Blood Neg (Negative) 01/16/24 10:55 Urine Nitrate Negative (Negative) 01/16/24 10:55 Urine Bilirubin Neg (Negative) 01/16/24 10:55 Urine Urobilinogen Neg mg/dL (Negative) 01/16/24 10:55 Ur Leukocyte Esterase Negative (Negative) 01/16/24 10:55 Urine RBC Rare /hpf (0-2) 01/16/24 10:55 Urine WBC 0-4 /hpf (0-5) H 01/16/24 10:55 Ur Squamous Epith Cells 0-4 /hpf (0-5) H 01/16/24 10:55 Ur Transition Epith Cell 0-4 /hpf 01/16/24 10:55 Calcium Oxalate Crystal 0-4 /hpf H 01/16/24 10:55 Amorphous Sediment Not Reportable 01/16/24 10:55 Urine Bacteria Trace /hpf (NONE) 01/16/24 10:55 Hyaline Casts 0-4 /lpf H 01/16/24 10:55 Urine Mucus Trace /hpf 01/16/24 10:55 Blood Type O Positive 01/16/24 10:17 Rho(D) Type Rh positive 01/16/24 10:17 All radiology interpretation(s) finalized by discharge Discharge Plan Discharge Patient Disposition: Admitted As Inpatient Admit Provider: Carlo Ram Clinical Impression: Closed comminuted intertrochanteric fracture of right femur, Disseminated varicella, Anemia, Thrombocytopenia Condition: Stable Coding Level of Care Code ED [employer] Repairer for Adam Lamas
[2024-01-16 11:50] LABS: INR 1.28 (0.8-1.2)
[2024-01-16 12:05] LABS: Thyroid Stimulating Hormone 4.72 uIU/mL (0.27-4.20)
[2024-01-16] MEDS: pantoprazole 40 mg SDV IVP (12:45)
[2024-01-16] MEDS: sodium chloride 0.9% 1,000 ML 100 ML IV ×2 (12:46→22:34)
[2024-01-16 14:05] LABS: Iron 22 ug/dL (59-158); Percent Saturation 15.8 % (20-50); Total Iron Binding Capacity 139 mcg/dl; Unsaturated Iron Binding 117 ug/dL (112-347)
[2024-01-16] MEDS: LORazepam 2 mg/mL INJ 10 mL MDV 1 MG IVP (14:11)
[2024-01-16 14:17] LABS: Ferritin 1379 ng/mL (30-400)
[2024-01-16 14:20] LABS: Folate Level 10.9 ng/mL (4.5-32.2); Vitamin B12 324 pg/mL (232-1245)
--- NOTE | 2024-01-16 14:39 | P.CONIM_ITS ---
Documented by User: ROMIE Gr 01/16/24 15:38 Providers/Reason For Consult 2 Consulting Physician/Specialty*: Dr. Marisela DO/orthopedic surgeon Reason for Consult*: Right hip fracture Requesting Physician: Dr. Michael DO?emergency department Attending Physician: Carlo Ram MD Primary Care Provider: Sage Black MD History of Present Illness History of Present Illness Kaleb Hu is a 88 year old male that has a right hip pain after a fall. He was brought to the emergency department at [facility] and x-ray showed a right intertrochanteric hip fracture. Patient's family was present during history and exam and history was obtained by them. They said patient got up to go to the bathroom and lost his balance and that is how he fell. Denies any head injury or any other painful area. Denies any loss of consciousness. Patient has a history of dementia and has been dealing with a shingles rash on right lower leg and right side of face for the past several weeks. Patient lives with his daughter and ambulates with a walker or cane. Patient is not on a blood thinner. Review of Systems 2 General: Reports: 10 or more systems reviewed and unremarkable except in HPI and below Musc: Reports: extremity pain (Right hip) and limited range of motion (Right hip) Skin/Breast: Reports: rash (Right lower leg) and sores (Right lower leg) Medications/Allergies Home Medications Medication Instructions Recorded Confirmed Last Taken Type ascorbic acid (vitamin C) 1,000 mg 1 gm PO DAILY 06/12/20 01/16/24 01/14/24 History tablet cholecalciferol (vitamin D3) 125 125 mcg PO DAILY 06/12/20 01/16/24 01/14/24 History mcg (5,000 unit) capsule [id number]-[id number] 3 tab PO DAILY 06/12/20 01/16/24 01/14/24 History 750 mg-100 mg-125 mg-1.65 mg tablet (Glucosamine Chondroit Complx Advan) folic acid 1 mg tablet 1 mg PO DAILY #90 tabs 09/04/20 01/16/24 01/15/24 Rx famotidine 10 mg tablet (Pepcid AC) 10 mg PO DAILY 01/16/24 01/16/24 01/14/24 History gabapentin 300 mg capsule 300 mg PO BEDTIME 01/16/24 01/16/24 01/15/24 History ibuprofen 600 mg tablet 600 mg PO TID PRN Pain 01/16/24 01/16/24 01/15/24 History loratadine 10 mg tablet 10 mg PO DAILY 01/16/24 01/16/24 01/14/24 History mupirocin 2 % topical ointment 1 applic topical TID 01/16/24 01/16/24 01/15/24 History sulfamethoxazole 800 1 tab PO BID 01/16/24 01/16/24 01/15/24 History mg-trimethoprim 160 mg tablet Allergies Allergy/AdvReac Type Severity Reaction Status Date / Time No Known Allergies Allergy Verified 06/12/20 14:22 Current Medications Generic Name Dose Route Start Last Admin Trade Name Freq PRN Reason Stop Dose Admin Sodium Chloride 1,000 mls @ 100 mls/hr 01/16/24 12:15 01/16/24 12:46 Sodium Chloride 0.9% IV 100 mls/hr .Q10H KUN Administration Pantoprazole Sodium 40 mg 01/16/24 12:15 01/16/24 12:45 Pantoprazole 40 Mg Sdv IVP 40 mg Q12H KUN Administration PFSH Acute 2 PFSH: Medical History Flexion deformity, left knee Flexion deformity, right knee 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 Osteoarthritis Immunization counseling High risk medication use Seropositive rheumatoid arthritis of multiple sites Joint pain History of skin cancer in adulthood Surgical History History of cholecystectomy Family History Other Cancer Diabetes Hx of migraines Denies family history of Rheumatoid arthritis Lupus Lung disease Hypertension Stroke Social History Smoking and tobacco/nicotine status: former use of tobacco/nicotine Alcohol intake: former Vitals/I&O/Wt Last Vital Signs Temp 98.2 F 01/16/24 14:30 Pulse 111 H 01/16/24 14:30 Resp 15 01/16/24 14:30 BP 110/68 01/16/24 14:30 Pulse Ox 99 01/16/24 14:30 O2 Del Method Room Air 01/16/24 10:56 01/15/24 01/16/24 01/16/24 22:59 06:59 14:59 Intake Total 2390.93 / 2390.93 Balance 2390.93 / 2390.93 Weight last 48 hrs Weight 120 lb Physical Exam 2 Narrative: (Right) lower extremity-leg is shortene d and externally rotated. Positive logroll test. Tenderness to palpation right hip. compartments are soft and compressible. Patient can Wiggle toes. Toes are warm and well-perfused. Pedal pulse 2+. Patient has Right heel ulcer with varicella like dermatomal rash extending to the level of the knee dried eschars cratered. No rash noted above knee on thigh or right hip. Secondary assessment of other extremities. Upper extremities-no visible injuries, abrasions. Full range of motion in shoulders, elbows and wrist. no tenderness to palpation of shoulders or wrist. (Left) lower extremity-no visible injury or trauma seen. Full range of motion in hip. Negative logroll test. Patient able to perform straight leg raise and can dorsiflex plantarflex foot. Pedal pulse 2+ and patient can wiggle toes. Const: COMMON NORMALS: no acute distress and alert Resp: COMMON NORMALS: normal respiratory effort and No retractions Cardio: COMMON NORMALS: Peripheral pulses 2+ throughout PERIPHERAL PULSES: Peripheral pulses 2+ throughout Neuro: SENSORIUM/ORIENTATION: Yes alert Skin: GENERAL SKIN EXAM: dry skin Urinary Catheter Management: Banks: Cath Placed During This Visit: yes Urinary Catheter Date of Insertion: 01/16/24 Data 01/17/24 05:50 01/17/24 05:50 Micro: Microbiology 01/16/24 09:20 Blood Culture - Preliminary Blood SPECIMEN COLLECTED 01/16/24 09:00 Blood Culture - Preliminary Blood SPECIMEN COLLECTED Xray Ortho: Radiologist's impression: Patient: Kaleb Hu Unit #: [id number] : 1935 Age/Sex: 88 / M ADM Date: 01/16/24 Loc: ER Room/Bed: Attending Dr: Ordering Provider/Ordering MD: Erick Rodriguez DO Date of Service: 01/16/24 Procedure(s): XR hip RT 2-3V wo/w pel* [id number] Accession Number(s): [id number] Report Number: [id number] WS: [id number] XR hip RT 2-3V wo/w pel* [id number] REASON FOR EXAM: trauma FINDINGS: Intertrochanteric fracture which extends inferior to the lesser trochanter. Mild lateral displacement of a greater trochanteric fracture fragment and mild medial displacement of the lesser trochanteric fragment. XR/XR hip RT 2-3V wo/w pel* [id number] IMPRESSION: Intertrochanteric fracture right hip as above. Dictated By: Bryan Teague Jr, MD Signed By: Bryan Teague Jr, MD Signed Date/Time: 01/16/24944 DD/ 9 A&P Assessment and plan (1) Closed comminuted intertrochanteric fracture of right femur: Plan Plan: -Imaging and Labs reviewed -Hospitalist on board for medical management. -VTE prophylaxis -Nonweightbearing on right leg -Pain control -N.p.o. after midnight -Surgery tomorrow morning for Right hip Trochanteric femur nail Coding Level of Care Code Acute Code for [facility] Fwd Diagnoses Closed comminuted intertrochanteric fracture of right femur S72.141A Documented by User: Grabiel Antonio DO 01/17/24 12:17 Medications/Allergies Home Medications Medication Instructions Recorded Confirmed Last Taken Type ascorbic acid (vitamin C) 1,000 mg 1 gm PO DAILY 06/12/20 01/16/24 01/14/24 History tablet cholecalciferol (vitamin D3) 125 125 mcg PO DAILY 06/12/20 01/16/24 01/14/24 History mcg (5,000 unit) capsule [id number]-dakpawglc-[id number]-hyal 3 tab PO DAILY 06/12/20 01/16/24 01/14/24 History 750 mg-100 mg-125 mg-1.65 mg tablet (Glucosamine Chondroit Complx Advan) folic acid 1 mg tablet 1 mg PO DAILY #90 tabs 09/04/20 01/16/24 01/15/24 Rx famotidine 10 mg tablet (Pepcid AC) 10 mg PO DAILY 01/16/24 01/16/24 01/14/24 History gabapentin 300 mg capsule 300 mg PO BEDTIME 01/16/24 01/16/24 01/15/24 History ibuprofen 600 mg tablet 600 mg PO TID PRN Pain 01/16/24 01/16/24 01/15/24 History loratadine 10 mg tablet 10 mg PO DAILY 01/16/24 01/16/24 01/14/24 History mupirocin 2 % topical ointment 1 applic topical TID 01/16/24 01/16/24 01/15/24 History sulfamethoxazole 800 1 tab PO BID 01/16/24 01/16/24 01/15/24 History mg-trimethoprim 160 mg tablet Allergies Allergy/AdvReac Type Severity Reaction Status Date / Time No Known Allergies Allergy Verified 06/12/20 14:22 PFSH Acute 2 PFSH: Medical History Flexion deformity, left knee Flexion deformity, right knee 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 Osteoarthritis Immunization counseling High risk medication use Seropositive rheumatoid arthritis of multiple sites Joint pain History of skin cancer in adulthood Surgical History History of cholecystectomy Family History Other Cancer Diabetes Hx of migraines Denies family history of Rheumatoid arthritis Lupus Lung disease Hypertension Stroke Social History Smoking and tobacco/nicotine status: former use of tobacco/nicotine Alcohol intake: former Physical Exam 2 Urinary Catheter Management: Banks: Cath Placed During This Visit: yes Data 01/17/24 05:50 01/17/24 05:50 A&P Assessment and plan (1) Closed comminuted intertrochanteric fracture of right femur: Plan Plan: -Imaging and Labs reviewed -Hospitalist on board for medical management. -VTE prophylaxis -Nonweightbearing on right leg -Pain control -N.p.o. after midnight -Surgery tomorrow morning for Right hip Trochanteric femur nail Attending attestation: Patient was seen and examined in the preoperative holding area on 01/17/2024 by myself. Reviewed and agree with PAs assessment and plan. He has been optimized by the internal medicine team as platelets are up to 95 today after receiving 2 units of platelets. Patient hemoglobin 7 today and 2 units of blood has been ordered and is running prior to patient going back. Talked about his inherent risks with family as he is currently not able to make his own decisions. At this point in time we talked about the risk benefits complication alternatives of surgery through shared decision making elected proceed with surgical intervention of a right hip trochanteric femur nail. He will be continuing to be receiving units of blood during the surgery. They understand his risk of surgery clued not limited to make a better make it worse injury nerves vessels or tendons blood clot, heart attack, stroke, on the table, hardware failure, fracture nonunion. Understanding risk of surgery like to proceed all questions answered at this time. He has been optimized by the primary team and ready to proceed with surgical intervention today. As he is already over 24 hours out from his injury. Coding Level of Care Code Acute Code for [facility] Diagnoses Closed comminuted intertrochanteric fracture of right femur S72.141A
[2024-01-16] MEDS: SODIUM CHLORIDE 0.9% IV (19:27)
[2024-01-16] MEDS: ACYCLOVIR IV (19:27)
[2024-01-16] MEDS: gabapentin 300 mg Capsule PO (20:56)
[2024-01-16] MEDS: morphine 4 mg/mL SDV 1 mL 2 MG IVP (20:56)
[2024-01-17] VITALS (22 sets, daily range): BP systolic 90–130; BP diastolic 47–88; PULSE 70–109; RESP 15–18; TEMP 36.3–37.1; O2SAT 91–100
[2024-01-17] MEDS: pantoprazole 40 mg SDV IVP (00:02)
[2024-01-17] MEDS: morphine 4 mg/mL SDV 1 mL 2 MG IVP ×2 (01:40→09:07)
[2024-01-17] MEDS: ACYCLOVIR IV ×2 (02:03→16:59)
[2024-01-17] MEDS: SODIUM CHLORIDE 0.9% IV ×2 (02:03→16:59)
[2024-01-17] MEDS: LORazepam 2 mg/mL INJ 10 mL MDV 1 MG IVP (02:29)
--- NOTE | 2024-01-17 02:31 | PC.NURSE ---
Addendum entered by Columba Salinas RN 01/17/24 02:42: No one-on-one sitter available at this time. When patient pulls at serra and IV, I attempt to move patient's hand away from it and explain to patient not to pull on it, patient becomes more agitated and combative. Original Note: Pt pulled out IV catheter and has been pulling at his remaining IV and serra catheter. This nurse and another nurse went to clean up pt and start another IV. Pt began to get combative and screamed to leave him alone. Pt continued to pull at his IV and serra. Ileana, daughter, notified of pt's behavior and stated it was okay to give pt something to calm him down. Dr. Jeffery notified of situation and gave an order for 1mg of Ativan IVP.
[2024-01-17 06:02] LABS: Hematocrit 21.5 % (37-53); Mean Corpuscular HGB Conc 32.6 g/dL (30-55); Mean Corpuscular Hemoglobin 34.1 pg (27-33); Mean Corpuscular Volume 104.9 fl (82-101); Mean Platelet Volume 9.9 fL (7.4-10.4); Platelet Count 94 10^3/cmm (157-399); Red Blood Count 2.05 10^6/uL (3.85-5.65); Red Cell Distribution Width 15.9 % (12.1-15.1); White Blood Count 4.31 10^3/uL (3.29-11.43)
[2024-01-17 06:22] LABS: Alanine Aminotransferase 25 U/L (0-41); Albumin Level 2.6 g/dL (3.5-5.2); Alkaline Phosphatase 47 U/L (40-130); Anion Gap 13.1 (5-19); Aspartate Amino Transferase 32 U/L (0-40); Blood Urea Nitrogen 22 mg/dL (8-23); Calcium 7.4 mg/dL (8.5-10.5); Carbon Dioxide 20 mmol/L (22-29); Chloride 112 mmol/L (98-107); Creatinine Clr Calc Pharmacy 46.5767; Globulin 1.8 g/dL (1.3-4.6); Glucose 87 mg/dL (65-115); Magnesium 1.8 mg/dL (1.7-2.3); Osmolality Calculated 295 mOsm/kg (285-295); Potassium 4.1 mmol/L (3.5-5.1); Sodium 141 mmol/L (136-145); Total Bilirubin 0.4 mg/dL (0.15-1.2); Total Protein 4.4 g/dL (6.6-8.7)
[2024-01-17 08:03] LABS: Absolute Eosinophils 0.2 10^3/cmm (0.0-0.7); Absolute Segmented Neutrophil 2.2 10/cmm (1.6-7.1); Band Neutrophils Absolute 0.3 10^3/cmm (0.0-1.2); Eosinophils 5 %; Lymphocytes 17 %; Monocytes Absolute 0.2 10^3/cmm (0.1-0.6); Segmented Neutrophils 51 %; Slide Review Slide Review Perform; Total Cells Counted 100 (0-100)
[2024-01-17 08:04] LABS: Absolute Neutrophil 2.5 10^3/cmm (1.4-6.5); Anisocytosis Trace; Giant Platelets Trace; Macrocytosis 1+; Platelet Estimate Decreased (Normal)
--- NOTE | 2024-01-17 08:25 | P.PN_ITS ---
Subjective 2 Subjective: Responsive but confused. Received a dose of Ativan last night. No evidence of bleeding other than likely hematoma right hip Vitals/I&O/Wt Last Vital Signs Temp 98.2 F 01/17/24 08:00 Pulse 109 H 01/17/24 08:00 Resp 16 01/17/24 08:00 BP 98/53 01/17/24 08:00 Pulse Ox 92 01/17/24 08:00 O2 Del Method Room Air 01/17/24 08:00 O2 Flow Rate 1 01/16/24 20:00 01/16/24 01/17/24 01/17/24 22:59 06:59 14:59 Intake Total 1241 / 3631.93 321 / 3952.93 Output Total 400 / 400 775 / 1175 Balance 841 / 3231.93 -454 / 2777.93 Weight last 48 hrs Weight 58.627 kg Weight 60.895 kg Weight 54.431 kg Physical Exam 2 Narrative: General exam is extremely hard of hearing male, with an extensive rash. Confused. Neck supple no lymphadenopathy thyromegaly Cardiovascular tachycardic, no murmur Lungs clear no wheezing or crackles Abdomen is soft, scaphoid, no obvious organomegaly exam Banks Extremities no cyanosis clubbing. Extensive zoster overlying what appears to be an unstageable soft right heel ulcer. Likely hematoma right hip Neuro confused. Moves all extremities Skin extensive zoster, both sides of chest, right face, right leg. I have also heard it is a left dermatome on his back but I did not turn him secondary to his hip fracture Urinary Catheter Management: Banks: Cath Placed During This Visit: yes Reason for Continuing Indwelling Catheter: Perioperative Use in Selected Surgeries Urinary Catheter Date of Insertion: 01/16/24 Data 01/17/24 05:50 01/17/24 05:50 Micro: Microbiology 01/16/24 09:20 Blood Culture - Preliminary Blood SPECIMEN COLLECTED 01/16/24 09:00 Blood Culture - Preliminary Blood SPECIMEN COLLECTED A&P Assessment and plan (1) Closed right hip fracture: Patient with closed hip fracture Pain control Orthopedic consultation appreciated Overall risk moderate to high considering disseminated zoster Surgery planned today (2) Disseminated varicella: Patient with disseminated zoster Continue Acyclovir Ophthalmology consultation pending Isolation precautions (3) Anemia: Anemic from baseline Protonix prophylactically Stool Hemoccult pending, B12 and folate normal. Iron saturation slightly low. Repeat CBC tomorrow Transfused 2 units of packed red blood cells for hemoglobin of 7 (4) Thrombocytopenia: Patient with significant thrombocytopenia with a platelet count of 46,000 going to surgery Platelet transfusion is appropriate prior to surgery and was given January 15 2 units with good response. Platelets in the 90s. Repeat CBC tomorrow. (5) Seropositive rheumatoid arthritis of multiple sites: Hold any immune suppressants. From my understanding he was on methotrexate. (6) Cellulitis: Concern of cellulitis right heel. Continue vancomycin. Blood culture. Plan Multiple other medical problems outlined in past medical history Allow natural SCDs for DVT prophylaxis, anticoagulation contraindicated secondary to thrombocytopenia Patient with high risk of decompensation considering disseminated zoster, hip fracture, need for blood transfusion today and will need close monitoring and repeat laboratory tomorrow. Attestations 2 Medical Necessity Statement*: Needs continued hospitalization for treatment of disseminated zoster with acyclovir and hip fracture definitive him fracture care Diagnoses Closed right hip fracture S72.001A Disseminated varicella B01.9 Anemia D64.9 Thrombocytopenia D69.6 Seropositive rheumatoid arthritis of multiple sites M05.79 Cellulitis L03.90 Time Spent (min) 25
[2024-01-17] MEDS: sodium chloride 0.9% 1,000 ML 100 ML IV ×2 (09:05→18:10)
[2024-01-17] MEDS: vancomycin 750 MG in sodium chloride 0.9% 250 ML 250 MG IV (09:06)
--- NOTE | 2024-01-17 09:47 | PC.CHAP ---
Pastoral Care Encounter/Spiritual Assessment Type of Contact [] Declined card services specialist visit [] Patient/Family/Request visit [] Outpatient visit [] Follow-up visit [] Physician referral [] Code/Alert [x] Routine visit [] Staff referral [] Actively dying [] Patient sleeping [x] Family support [] [] Out of room [] Palliative care [] [] Receiving care in room [] Pre-surgical visit [] Trauma [] Long length of stay [] ICU visit [] Other: Relational/Emotional Strength [] Patient feels connected with others/family/visitors/staff [x] Distress [] Loneliness/isolation [] Abandonment Spirituality of Patient [] Person of Marichuy [] Attends Yazidi of their [place]uy [] Believes in Prayer [] Reads Bible or Yarsanism materials [] There are 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 [x] Prayer [] Active listening [x] Non-anxious presence [x] Spiritual/emotional support [] Crisis/trauma care [] Spiritual counseling [] Bereavement support [] Provided bereavement packet [] Provided Bible/devotional materials [] Provided toy/stuffed animal, coloring book to patient or family member [] Provided Communion [] Anointing/[place] [] Salvation [x] Completed spiritual assessment [] Other: Impact on Illness or Injury [] Angry [] Fearful [] Anxious [] Often cries [] Exhaustion [] Unable to work [] Unable to attend mu-ism [] Unable to walk/stand [] Unable to read [] Unable to drive [] Unable to eat/drink [] Unable to sleep [] Unable to be with family [] Patient intubated [] Other: Summary Time spent with patient 5 min. AMS. Prayer with family.
[2024-01-17] MEDS: sodium chloride 0.9% 1,000 ML 30 ML IV (11:29)
[2024-01-17] MEDS: fentaNYL 50 mcg/mL INJ 2mL IVP (11:43)
--- NOTE | 2024-01-17 11:48 | P.ANESASSM_ITS ---
Pre-Anesthetic Assessment Height/Weight: Height 1.73 m Weight 58.627 kg Temp Pulse Resp BP Pulse Ox O2 Del Method O2 Flow Rate 98.8 F 98 17 107/58 91 Room Air 1 01/17/24 11:27 01/17/24 11:27 01/17/24 11:27 01/17/24 11:27 01/17/24 11:27 01/17/24 11:27 01/16/24 20:00 Preop Diagnosis: Hip intertrochanteric femur fracture Operation Date: 01/17/24 12:00 Proposed Procedures p Trochanteric Femoral Nail(Right) - Grabiel Antonio, Familial anesthetic complications: NOne Was Beta Shagufta taken within 24 hours: N/A Was Clonidine taken within 24 hours: N/A Last intake: Intake Last Liquid Date 01/16/24 Last Solid Date 01/16/24 Social No alcohol and No tobacco Exam alert, oriented x 3, clear to auscultation bilaterally and regular rate & rhythm dementia Airway Mallampati: Class I CV/HEM Thrombocytopenia s/p transfusion of 2 units of [place] [facility] [place] [place] Flexion contractures of all extremities Neuropsych varicella Anesthetic Plan ASA status: 4 Anesthesia: General Risk of > 500 ml blood loss (7ml/kg in children): No Medications/Allergies Home Medications Medication Instructions Recorded Confirmed Last Taken Type ascorbic acid (vitamin C) 1,000 mg 1 gm PO DAILY 06/12/20 01/16/24 01/14/24 History tablet cholecalciferol (vitamin D3) 125 125 mcg PO DAILY 06/12/20 01/16/24 01/14/24 History mcg (5,000 unit) capsule hihqgkzzrih-icfqvxgav-[id number]-hyal 3 tab PO DAILY 06/12/20 01/16/24 01/14/24 History 750 mg-100 mg-125 mg-1.65 mg tablet (Glucosamine Chondroit Complx Advan) folic acid 1 mg tablet 1 mg PO DAILY #90 tabs 09/04/20 01/16/24 01/15/24 Rx famotidine 10 mg tablet (Pepcid AC) 10 mg PO DAILY 01/16/24 01/16/24 01/14/24 History gabapentin 300 mg capsule 300 mg PO BEDTIME 01/16/24 01/16/24 01/15/24 History ibuprofen 600 mg tablet 600 mg PO TID PRN Pain 01/16/24 01/16/24 01/15/24 History loratadine 10 mg tablet 10 mg PO DAILY 01/16/24 01/16/24 01/14/24 History mupirocin 2 % topical ointment 1 applic topical TID 01/16/24 01/16/24 01/15/24 History sulfamethoxazole 800 1 tab PO BID 01/16/24 01/16/24 01/15/24 History mg-trimethoprim 160 mg tablet Allergies Allergy/AdvReac Type Severity Reaction Status Date / Time No Known Allergies Allergy Verified 06/12/20 14:22 Current Medications Generic Name Dose Route Start Last Admin Trade Name Freq PRN Reason Stop Dose Admin Fentanyl 50 mcg 01/17/24 11:23 01/17/24 11:43 Fentanyl 50 Mcg/Ml Inj 2ml IVP 25 mcg Q10M PRN Administration Preop Pain Gabapentin 300 mg 01/16/24 21:00 01/16/24 20:56 Gabapentin 300 Mg Capsule PO 300 mg BEDTIME KUN Administration Acyclovir 550 mg/ Sodium 261 mls @ 270 mls/hr 01/16/24 18:00 01/17/24 03:18 Chloride IV Infused Q8H KUN Infusion Sodium Chloride 1,000 mls @ 100 mls/hr 01/16/24 12:15 01/17/24 09:05 Sodium Chloride 0.9% IV 100 mls/hr .Q10H KUN Administration Vancomycin HCl 750 mg/ Sodium 250 mls @ 250 mls/hr 01/17/24 10:00 01/17/24 11:17 Chloride IV Infused Q24H KUN Infusion Sodium Chloride 1,000 mls @ 30 mls/hr 01/17/24 11:30 01/17/24 11:29 Sodium Chloride 0.9% IV 01/18/24 11:29 30 mls/hr .Q24H KUN Administration Morphine Sulfate 2 mg 01/16/24 12:15 01/17/24 09:07 Morphine 4 Mg/Ml Sdv 1 Ml IVP 2 mg Q4H PRN Administration SEVERE PAIN Pantoprazole Sodium 40 mg 01/16/24 12:15 01/17/24 00:02 Pantoprazole 40 Mg Sdv IVP 40 mg Q12H KUN Administration PFSH Anesthesia Medical History Flexion deformity, left knee Flexion deformity, right knee 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00 L (11.27-16.99) g/dL Hct 28.4 L 21.5 L (37-53) % MCV 102.2 H 104.9 H (82-101) fl Plt Count 46 L 94 L D (157-399) 10^3/cmm Neut % (Auto) 60.7 % Neut # (Auto) 1.68 L (1.8-7.7) 10^3/uL BMP 01/16/24 01/17/24 09:00 05:50 Sodium 137 141 Potassium 4.0 4.1 Chloride 106 112 H Carbon Dioxide 21 L 20 L BUN 23 22 Creatinine 1.2 1.0 Glucose 101 87 Calcium 8.5 7.4 L Cardiac Enzymes 01/16/24 Range/Units 09:00 Creatine Kinase 63 (39-308) U/L Liver Function 01/16/24 01/17/24 Range/Units 09:00 05:50 Total Bilirubin 0.4 0.4 (0.15-1.2) mg/dL AST 21 32 (0-40) U/L ALT 23 25 (0-41) U/L Alkaline Phosphatase 57 47 (40-130) U/L Albumin 2.9 L 2.6 L (3.5-5.2) g/dL Urine 01/16/24 Range/Units 10:55 Urine Color Yellow (Yellow) Urine Appearance Clear (CLEAR) Urine pH 5 (5-7) Ur Specific Romeo 1.020 (1.005-1.030) Urine Protein Trace (Negative) Urine Glucose (UA) Norm (Normal) Urine Ketones Negative (Negative) Urine Nitrate Negative (Negative) Urine Bilirubin Neg (Negative) Ur Leukocyte Esterase Negative (Negative) Urine RBC Rare (0-2) /hpf Urine WBC 0-4 H (0-5) /hpf Blood Bank 01/16/24 10:17 Blood Type O Positive Rho(D) Type Rh positive Antibody Screen Negative Coags 01/16/24 09:00 PT 16.40 H INR 1.28 H Microbiology 01/16/24 09:20 Blood Culture - Preliminary Blood SPECIMEN COLLECTED 01/16/24 09:00 Blood Culture - Preliminary Blood SPECIMEN COLLECTED Cardiac Studies: 2 No Data to Display
--- NOTE | 2024-01-17 12:10 | W.PM.OPSUD ---
Surgery/Procedure H&P Update DATE OF PROCEDURE: January 17, 2024 DATE H&P PERFORMED: 01/16/24 H&P UPDATE INFORMATION: I have reviewed H&P completed within last 30 days, I have examined patient prior to procedure and No changes to prior documentation PREOP DIAGNOSIS: Hip intertrochanteric femur fracture PRIMARY INDICATION FOR PROCEDURE: Right intertrochanteric femur fracture PLANNED PROCEDURE: Operation Date: 01/17/24 12:00 Proposed Procedures p Trochanteric Femoral Nail(Right) - Grabiel Antonio DO
[2024-01-17] MEDS: ceFAZolin 2,000 MG in sodium chloride 0.9% (plus) 50 ML 100 MG IV ×2 (12:31→20:21)
[2024-01-17] MEDS: tranexamic acid 1,000 mg/10mL SDV 1000 MG IV (13:12)
--- NOTE | 2024-01-17 13:35 | W.PM.BPON ---
Date of Procedure: [01/17/2024] Surgeon: Grabiel Antonio DO Incubator Machine Operator(s): Doug Antonio PA-C Procedure(s) performed: Right hip trochanteric femur nail Findings of the procedure(s): Right hip intertrochanteric femur fracture underwent procedure as planned with no complications. He did start off with a 7 hemoglobin this morning he is actively receiving 2 units of PRBC. Blood loss was 50 mL. Will return to the floor postoperatively. Estimated blood loss: 50 mL Specimen(s) removed: None Post-operative diagnosis: Right hip intertrochanteric femur fracture, disseminated zosters
--- NOTE | 2024-01-17 13:39 | XRR_ITS ---
PROCEDURE INFORMATION: Exam: XR Right Hip Exam date and time: 01/17/2024 2:06 PM Age: 88 years old Clinical indication: Device placement; Other: Right hip; Prior surgery; Surgery date: Post-operative (0-2 days); Additional info: Postop orif right hip TECHNIQUE: Imaging protocol: Radiologic exam of the right hip. Views: 1 view hip with pelvis when performed. COMPARISON: CR XR hip RT 2-3V wo/w pel* [id number] 10/19/2023 09:25 FINDINGS: Bones/joints: There is good anatomic alignment of the right hip status post ORIF of an intertrochanteric fracture. There are routine postoperative changes noted. No new fractures are identified. Soft tissues: Surgical skin michael overlie the lateral right hip. XR/XR hip RT 2-3V wo/w pel* [id number] IMPRESSION: Good anatomic alignment status post ORIF of the right hip
--- NOTE | 2024-01-17 13:40 | PM.OP ---
Operative Report Date of procedure: January 17, 2024 Surgeon: Grabiel Antonio DO Depalletizer Operator: Doug Antonio PA-C: PA was necessary for assistance in this case with leg positioning retraction and reduction and as well as assistance in fixation/implantation wound closure and dressing application. Procedure: Preoperative diagnosis: Right displaced intertrochanteric femur post-op diagnosis: right displaced intertrochanteric femur fracture Procedure done: Right intertrochanteric femur fracture ORIF with cephalomedullary nail Implants: Martin gamma nail short 11 mm x 180 mm x 125 degree Lag screw 10.5 mm x 110?mm Distal locking screw 5 mm x 40 mm Surgeon: Grabiel Antonio DO Estimated blood loss: 50 mL IV fluids: See anesthesia?record Urine output: See anesthesia?record Complications: See operative?report Findings: See operative?report narrative Condition: stable Disposition: Floor Brief History: Patient sustained a fall and was found to have a?right intertrochanteric hip fx.?Pt has?been unable to bear weight,?right hip/lower extremity shortened and externally?rotated.? At this point time Pt?was admitted by the hospitalist team and orthopedics was consulted.??Refer to consult note for detailed HPI.? 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 Has been optimized by internal medicine team after being admitted. Patient was receiving 2 units PRBC while going back to the OR as he had a hemoglobin of 7 this morning. We talked about treatment options as far as nonoperative and operative intervention.?Recommend?Right hip?trochanteric femur nail.? At this point time patient family would like to pursue surgical intervention for benefits of pain control and earlier mobilization.?? Patient family understands the ins and outs of procedure, the?risk benefits complication alternatives of surgical nonsurgical treatment options.? Understanding?risk of surgery pt patient's family agrees to proceed with surgical intervention all questions answered.? Consent obtained. Procedure: Patient seen evaluated in the preoperative holding area.? Consent was obtained.? Correct extremity was then marked.? Once cleared by anesthesia and the hospitalist team patient was taken back to the operative suite.? Patient underwent anesthesia per the anesthesia department.? Once appropriately anesthetized patient was placed on a fracture [place] table.? Patient was appropriately secured to the bed.? All bony prominences were well-padded.? At this point time patient?received appropriate preoperative antibiotics.? Final timeout was performed.? Prior to beginning surgery a standard closed?reduction maneuver was placed on the [place] table and large C-arm was brought in.? After performing a closed?reduction maneuver there was able to achieve satisfactory?reduction of?right intertrochanteric femur fracture.? ? This point time the?right lower extremity was then prepped and draped in standard orthopedic fashion. A standard longitudinal incision was made just proximal to the greater?trochanter?roughly 4 cm in length sharp scalpel vision was made through skin and subcutaneous tissue.? I then utilized a blunt Rader to split? fascia and mobilized directly down to the greater?trochanter.? I then inserted my starting guidewire which was placed appropriate starting position the tip of the greater?trochanter.? This was advanced in AP and lateral films to be in center center position and advanced to the level lesser?trochanter.? This was confirmed to be in center center position on AP and lateral imaging.? Once this was done I then introduced my opening?reamer which was then subsequently guide pin?removed.? I selected a 11 mm x 180 mm x 125 degree. At this point time the nail was then loaded onto the Ed[place]son gamma?trochanteric nail guide.? This was placed within the canal and confirmed with XR and the setscrew was then gently placed not locked.? The nail was then impacted to appropriate depth .? At this point time I then inserted my lag screw guide and subsequently made a small incision through skin and subcutaneous tissue splitting the IT band longitudinally and the guide was placed directly onto bone.? Next I then subsequently placed the guidewire in center center position in the head with an appropriate tip to apex distance this was confirmed with multiple orthogonal images.? Once I was satisfied with my planned lag screw placement I then measured which was? [110]?mm.? I then set my cannulated drill and subsequently?reamed this into the head at appropriate depth.? I then had my?rep open the 10.5 mm x 110 mm lag screw which was then opened on the back table and subsequently screwed into place over my cannulated drill guide.? This was placed with excellent tip to apex distance.? Next I then utilized the compressing device and subsequently compressed my fracture after I let off traction.? This had excellent fracture compression and opposition and closing down to my fracture line.? Next I then locked the nail by locking my setscrew.? This point time the guidewire as well as the sleeve was then?removed.? Next I plan for statically locking the nail distally.? This triple sleeve was then placed a small stab incision was made blunt dissection directly down to bone and the guide sleeve was placed and locked directly onto the bone.? I then inserted the drill bit and subsequently drilled bicortically measured appropriate length screw and then placed a 40?mm distal interlocking screw and had excellent fixation was appropriate length.? This point time is completed my construct I?remove the outer jig and took final images of AP and lateral of the?right intertrochanteric femur fracture which showed stable?reduction and stable fixation.? Incision was then thoroughly irrigated.? Hemostasis was maintained with electrocautery.? I then once again thoroughly irrigated the incisions and then subsequently closed in layered fashion of 0 Vicryl 2-0 Vicryl and michael.? Silverlon dressings applied.? Patient was then awakened from anesthesia transported onto the hospital bed and taken to PACU in stable condition.? Patient tolerated procedure without complications. Disposition: Patient taken to PACU in stable condition.? Complete final unit of PRBC postoperatively. Postoperatively,? Patient to?receive appropriate discharge instructions as well as pain medication DVT prophylaxis postoperatively.? Patient?will be allowed weightbearing as tolerated?right lower extremity.? Will?receive appropriate postoperative antibiotics, PT/OT.? Patient to follow-up in the orthopedic office in 2 weeks.? Patients family understands and agrees with current plan.? All questions answered.
--- NOTE | 2024-01-17 14:30 | ANE.PACU2 ---
Inpatient post-anesthesia follow up: Airway intact: Yes Vital signs: Temperature 98.8 F Pulse Rate 98 Respiratory Rate 17 Blood Pressure 107/58 Pulse Oximetry 91 Oxygen Delivery Me thod [ Room Air Current Rate & Del michael] Oxygen Delivery Me thod Room Air Oxygen Flow Rate 6 Fraction of Inspir ed Oxygen Hydration adequate: Yes Nausea and vomiting: No Pain level: 1 Mental status: Baseline
[2024-01-17] MEDS: HYDROmorphone 1 mg/mL INJ 1 mL 0.5 MG IVP ×2 (15:52→22:57)
[2024-01-17] MEDS: mupirocin oint 22 gm 1 APPLIC NASAL (17:58)
--- NOTE | 2024-01-17 18:32 | P.CONIM_ITS ---
Providers/Reason For Consult 2 Consulting Physician/Specialty*: Ophthalmology Reason for Consult*: Right V2 zoster Requesting Physician: Dave Ram Attending Physician: Carlo Ram MD Primary Care Provider: Sage Black MD History of Present Illness History of Present Illness Kaleb Hu is a 88 year old male recently admitted with hip fracture , cascading demetia, severe arthritis, and diffuse Zoster Medications/Allergies Home Medications Medication Instructions Recorded Confirmed Last Taken Type ascorbic acid (vitamin C) 1,000 mg 1 gm PO DAILY 06/12/20 01/16/24 01/14/24 History tablet cholecalciferol (vitamin D3) 125 125 mcg PO DAILY 06/12/20 01/16/24 01/14/24 History mcg (5,000 unit) capsule [id number]-[id number] 3 tab PO DAILY 06/12/20 01/16/24 01/14/24 History 750 mg-100 mg-125 mg-1.65 mg tablet (Glucosamine Chondroit Complx Advan) folic acid 1 mg tablet 1 mg PO DAILY #90 tabs 09/04/20 01/16/24 01/15/24 Rx famotidine 10 mg tablet (Pepcid AC) 10 mg PO DAILY 01/16/24 01/16/24 01/14/24 History gabapentin 300 mg capsule 300 mg PO BEDTIME 01/16/24 01/16/24 01/15/24 History ibuprofen 600 mg tablet 600 mg PO TID PRN Pain 01/16/24 01/16/24 01/15/24 History loratadine 10 mg tablet 10 mg PO DAILY 01/16/24 01/16/24 01/14/24 History mupirocin 2 % topical ointment 1 applic topical TID 01/16/24 01/16/24 01/15/24 History sulfamethoxazole 800 1 tab PO BID 01/16/24 01/16/24 01/15/24 History mg-trimethoprim 160 mg tablet Allergies Allergy/AdvReac Type Severity Reaction Status Date / Time No Known Allergies Allergy Verified 06/12/20 14:22 Current Medications Generic Name Dose Route Start Last Admin Trade Name Freq PRN Reason Stop Dose Admin Calcium Carbonate 1 each 01/17/24 18:00 01/17/24 16:57 Calcium Carb-Vit D 600mg/400unit 1 Tablet PO Not Given BID KUN Chlorhexidine Gluconate 30 ml 01/17/24 17:00 01/17/24 16:57 Chlorhexidine Gluconate 0.12% Btl 473 Ml MUCOUS MEM Not Given QID KUN Docusate Sodium 100 mg 01/17/24 18:00 01/17/24 16:57 Docusate Sodium 100 Mg Capsule PO Not Given BID KUN Gabapentin 300 mg 01/16/24 21:00 01/16/24 20:56 Gabapentin 300 Mg Capsule PO 300 mg BEDTIME KUN Administration Hydromorphone HCl 0.5 mg 01/17/24 14:37 01/17/24 15:52 Hydromorphone 1 Mg/Ml Inj 1 Ml IVP 0.5 mg Q4H PRN Administration BREAKTHROUGH PAIN Acyclovir 550 mg/ Sodium 261 mls @ 270 mls/hr 01/16/24 18:00 01/17/24 17:58 Chloride IV Infused Q8H KUN Infusion Sodium Chloride 1,000 mls @ 100 mls/hr 01/16/24 12:15 01/17/24 18:10 Sodium Chloride 0.9% IV 100 mls/hr .Q10H KUN Administration Vancomycin HCl 750 mg/ Sodium 250 mls @ 250 mls/hr 01/17/24 10:00 01/17/24 11:17 Chloride IV Infused Q24H KUN Infusion Morphine Sulfate 2 mg 01/16/24 12:15 01/17/24 09:07 Morphine 4 Mg/Ml Sdv 1 Ml IVP 2 mg Q4H PRN Administration SEVERE PAIN Mupirocin 1 applic 01/17/24 18:00 01/17/24 17:58 Mupirocin Oint 22 Gm NASAL 01/22/24 17:59 1 applic BID KUN Administration Protocol Pantoprazole Sodium 40 mg 01/16/24 12:15 01/17/24 00:02 Pantoprazole 40 Mg Sdv IVP 40 mg Q12H KUN Administration Polysaccharide Iron Complex 150 mg 01/17/24 18:00 01/17/24 16:57 Iron Polysaccharide Complex 150 Mg Capsule PO Not Given BIDWM KNU PFSH Acute 2 PFSH: Medical History Flexion deformity, left knee Flexion deformity, right knee 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 Osteoarthritis Immunization counseling High risk medication use Seropositive rheumatoid arthritis of multiple sites Joint pain History of skin cancer in adulthood Surgical History History of cholecystectomy Family History Other Cancer Diabetes Hx of migraines Denies family history of Rheumatoid arthritis Lupus Lung disease Hypertension Stroke Social History Smoking and tobacco/nicotine status: former use of tobacco/nicotine Alcohol intake: former Vitals/I&O/Wt Last Vital Signs Temp 97.8 F 01/17/24 14:37 Pulse 86 01/17/24 18:10 Resp 16 01/17/24 18:10 BP 94/47 01/17/24 18:10 Pulse Ox 93 01/17/24 18:10 O2 Del Method Room Air 01/17/24 18:10 O2 Flow Rate 6 01/17/24 13:51 01/17/24 01/17/24 01/17/24 06:59 14:59 22:59 Intake Total 321 / 3952.93 2049 / 2049 1291.333 / 3341.333 Output Total 775 / 1175 350 / 350 Balance -454 / 2777.93 1700 / 1700 1291.333 / 2991.333 Weight last 48 hrs Weight 129 lb 4 oz Weight 134 lb 4 oz Weight 120 lb Physical Exam 2 Narrative: Somnolent and recently returned from hip repair surgery. Unresponsive to verbal questioning, but not in obvious distress. HENMT: OTHER: Severe V1,2,3 zoster across the right side of his face, in his mouth, and on his head. The lids are involved but minimally edematous. Much of the skin appears necrotic and poorly perfused. Eye: OTHER: right lids are crusted and blackened with minimal edema but easily opened , showing minimally injected conj/sclera. There is no corneal staining and the chamber is free of hypopion. The pupil is small but RRL. There are no posterior synechiae evident. Urinary Catheter Management: Banks: Cath Placed During This Visit: yes Reason for Continuing Indwelling Catheter: Perioperative Use in Selected Surgeries Urinary Catheter Date of Insertion: 01/16/24 Data 01/17/24 16:20 01/17/24 05:50 Micro: Microbiology 01/16/24 09:20 Blood Culture - Preliminary Blood NEGATIVE TO DATE 01/16/24 09:00 Blood Culture - Preliminary Blood NEGATIVE TO DATE A&P Assessment and plan Plan Assessment:Severely disabled patient with unusually severe right facial Zoster. Plan: I see no need for additional intervention for the eye at present. The systemic acyclovir is the appropriate therapy. Consult Attestations 2 Medical Necessity Statement: I agree with the current therapy plan. Time Spent in Patient Care: 20 minutes in evaluation and reporting Coding Level of Care Code Acute Code for Chg Fwd Time Spent (min) 20 Comment Continue current plan
[2024-01-17] MEDS: tranexamic acid 1,000 MG/100 ML PREMIX 600 MG IV (20:01)
--- NOTE | 2024-01-17 20:17 | PC.NURSE ---
2100 Gabapentin and chlorhexidine gluconate not given due to patient being unable to swallow at this time.
[2024-01-17] MEDS: haloperidol inj 5 mg/mL INJ 1 mL 2 MG IM (23:22)
[2024-01-18] VITALS (15 sets, daily range): BP systolic 107–130; BP diastolic 53–71; PULSE 93–98; RESP 15–19; TEMP 36.4–36.7; O2SAT 91–97
[2024-01-18] MEDS: pantoprazole 40 mg SDV IVP ×2 (00:02→12:56)
--- NOTE | 2024-01-18 00:02 | PC.NURSE ---
0000 dose of Acyclovir not given due to being a premix sent from pharmacy and not available in the pyxis. This nurse checked patients bin to ensure the med was not there.
--- NOTE | 2024-01-18 00:48 | PC.NURSE ---
Patient pulled two IVs out and pulling at serra catheter. Patient also becoming combative. Patient digging at right hip dressing with hand. Patient confused and does not comprehend education. Dr. Jeffery notified that patient is becoming combative. Also notified that I have a concern with over-sedating him and want to avoid that if possible, as patient had just received PRN Dilaudid IV. Dr. Jeffery ordered 2 mg IM Haldol x1. IV access obtained. Serra catheter removed.
[2024-01-18] MEDS: sodium chloride 0.9% 1,000 ML 100 ML IV ×3 (03:21→23:24)
[2024-01-18] MEDS: ceFAZolin 2,000 MG in sodium chloride 0.9% (plus) 50 ML 100 MG IV ×2 (03:57→12:56)
[2024-01-18] MEDS: HYDROmorphone 1 mg/mL INJ 1 mL 0.5 MG IVP ×3 (03:57→19:45)
--- NOTE | 2024-01-18 06:15 | PC.NURSE ---
Banks catheter removed at 0000 12/18/23 due to patient persistently pulling on it. He has not voided since removal. Myself and another nurse attempted to bladder scan the patient. He got combative and starting yelling at us to leave him alone. Bladder scan showed 205ml. Dr. Jeffery notified and gave orders to bladder scan again in 4 hours.
--- NOTE | 2024-01-18 06:18 | PC.NURSE ---
Patient did not have any urine output after serra removed. Attempt to get patient to void in urinal and patient did not void. Bladder scan shows 205 ml. Patient combative during bladder scan. Dr. Jeffery notified. Ordered to bladder scan again in 4 hours.
[2024-01-18] MEDS: oxyCODONE-APAP 5-325 mg Tablet 1 TAB PO ×2 (09:18→23:46)
[2024-01-18] MEDS: calcium carb-vit d 600mg/400unit 1 Tablet 1 EACH PO ×2 (09:21→18:08)
[2024-01-18] MEDS: multivitamin therapeutic Tablet 1 TAB PO (09:22)
[2024-01-18] MEDS: iron polysaccharide complex 150 mg Capsule PO ×2 (09:24→18:08)
[2024-01-18] MEDS: docusate sodium 100 mg Capsule PO ×2 (09:25→18:08)
[2024-01-18] MEDS: mupirocin oint 22 gm 1 APPLIC NASAL ×2 (09:25→18:09)
[2024-01-18] MEDS: SODIUM CHLORIDE 0.9% IV ×2 (09:59→21:58)
[2024-01-18] MEDS: ACYCLOVIR IV ×2 (09:59→21:58)
--- NOTE | 2024-01-18 10:41 | P.PN_ITS ---
Subjective 2 Subjective: Patient is extremely hard of hearing but able to have a good conversation this morning. Does report he has some hip pain. Received some Haldol last night. Medications: Reviewed: Yes Vitals/I&O/Wt Last Vital Signs Temp 98.0 F 01/18/24 07:22 Pulse 93 01/18/24 07:22 Resp 17 01/18/24 09:18 BP 130/71 01/18/24 07:22 Pulse Ox 97 01/18/24 08:09 O2 Del Method Room Air 01/18/24 08:09 O2 Flow Rate 6 01/17/24 13:51 01/17/24 01/18/24 01/18/24 22:59 06:59 14:59 Intake Total 1441.333 / 3491.333 968.333 / 4459.666 Output Total 500 / 850 100 / 950 Balance 941.333 / 2641.333 868.333 / 3509.666 Weight last 48 hrs Weight 62.051 kg Weight 58.627 kg Weight 60.895 kg Physical Exam 2 Narrative: General exam no distress Neck supple no lymphadenopathy thyromegaly Cardiovascular regular rate and rhythm Lungs clear no wheezing or crackles Abdomen is soft, scaphoid, no obvious organomegaly Extremities no cyanosis clubbing. Extensive zoster overlying what appears to be an unstageable soft right heel ulcer. Likely hematoma right hip. Still some fluid-filled blisters Neuro more cognizant today, no focal deficits Skin extensive zoster, both sides of chest, right face, right leg. Not yet completely scabbed. Urinary Catheter Management: Banks: Cath Placed During This Visit: yes, but has since been removed by the nurse Reason for Continuing Indwelling Catheter: Decision to DC Catheter Urinary Catheter Date of Insertion: 01/16/24 Date Urinary Catheter Removed: 01/18/24 Time Urinary Catheter Discontinued: 00:44 Data 01/17/24 16:20 01/17/24 05:50 Micro: Microbiology 01/16/24 09:20 Blood Culture - Preliminary Blood NEGATIVE TO DATE 01/16/24 09:00 Blood Culture - Preliminary Blood NEGATIVE TO DATE A&P Assessment and plan (1) Closed right hip fracture: Patient with closed hip fracture He is now postoperative day #1 status post repair Orthopedic consultation appreciated Awaiting his CBC and CMP today (2) Disseminated varicella: Patient with disseminated zoster Continue Acyclovir Ophthalmology consultation appreciated Isolation precautions (3) Anemia: Anemic from baseline Protonix prophylactically Stool Hemoccult pending, B12 and folate normal. Iron saturation slightly low. Repeat CBC tomorrow Transfused 2 units of packed red blood cells for hemoglobin of 7 on January 16 (4) Thrombocytopenia: Patient with significant thrombocytopenia with a platelet count of 46,000 going to surgery Platelet transfusion is appropriate prior to surgery and was given January 15 2 units with good response. Awaiting platelet count today (5) Seropositive rheumatoid arthritis of multiple sites: Hold any immune suppressants. From my understanding he was on methotrexate. (6) Cellulitis: Concern of cellulitis right heel. Continue vancomycin. Blood culture. Plan Multiple other medical problems outlined in past medical history Allow natural SCDs for DVT prophylaxis, anticoagulation contraindicated secondary to thrombocytopenia Patient with high risk of decompensation considering disseminated zoster, hip fracture, need for blood transfusion today and will need close monitoring and repeat laboratory tomorrow. Attestations 2 Medical Necessity Statement*: Needs continued hospitalization for close monitoring following hip surgery as well as systemic zoster with severe weakness receiving IV acyclovir Diagnoses Closed right hip fracture S72.001A Disseminated varicella B01.9 Anemia D64.9 Thrombocytopenia D69.6 Seropositive rheumatoid arthritis of multiple sites M05.79 Cellulitis L03.90 Time Spent (min) 25
[2024-01-18] MEDS: vancomycin 750 MG in sodium chloride 0.9% 250 ML 250 MG IV (11:12)
[2024-01-18 11:15] LABS: Basophils % 0.3 %; Eosinophils % 0.1 %; Hematocrit 28.4 % (37-53); Lymphocytes # 1.7 10^3/uL (0.8-4.8); Lymphocytes % 21.3 %; Mean Corpuscular HGB Conc 33.8 g/dL (30-55); Mean Corpuscular Hemoglobin 32.7 pg (27-33); Mean Corpuscular Volume 96.6 fl (82-101); Mean Platelet Volume 9.8 fL (7.4-10.4); Monocytes # 1.7 10^3/uL (0.2-0.9); Monocytes % 21.7 %; Neutrophils # 4.28 10^3/uL (1.8-7.7); Neutrophils % 55.4 %; Nucleated Red Blood Cells % 0 %; Platelet Count 138 10^3/cmm (157-399); Red Blood Count 2.94 10^6/uL (3.85-5.65); Red Cell Distribution Width 18.6 % (12.1-15.1); White Blood Count 7.73 10^3/uL (3.29-11.43)
[2024-01-18 11:50] LABS: Alanine Aminotransferase 25 U/L (0-41); Albumin Level 2.5 g/dL (3.5-5.2); Alkaline Phosphatase 48 U/L (40-130); Anion Gap 15.2 (5-19); Aspartate Amino Transferase 61 U/L (0-40); Blood Urea Nitrogen 30 mg/dL (8-23); Calcium 7.6 mg/dL (8.5-10.5); Carbon Dioxide 18 mmol/L (22-29); Chloride 116 mmol/L (98-107); Creatinine Clr Calc Pharmacy 47.5658; Globulin 2.1 g/dL (1.3-4.6); Glucose 108 mg/dL (65-115); Magnesium 1.9 mg/dL (1.7-2.3); Osmolality Calculated 307 mOsm/kg (285-295); Potassium 4.2 mmol/L (3.5-5.1); Sodium 145 mmol/L (136-145); Total Bilirubin 0.6 mg/dL (0.15-1.2); Total Protein 4.6 g/dL (6.6-8.7)
[2024-01-18 11:56] LABS: Slide Review Slide Review Perform
[2024-01-18] MEDS: morphine 4 mg/mL SDV 1 mL 2 MG IVP ×2 (13:38→22:13)
--- NOTE | 2024-01-18 13:44 | P.PN_ITS ---
<Statement entered by Grabiel Antonio DO - 01/22/24 22:25> Patient seen in addition to PADianelysC agree with PAs assessment and plan Grabiel Antonio DO Subjective 2 Subjective: Patient is an 88-year-old male that is 1 day postop right hip fracture ORIF. Patient has dementia and with his current mental status he cannot follow any directions or instructions. He cannot answer any questions accordingly. Patient's nurse denies any acute events overnight. Pain is well-controlled. Vitals/I&O/Wt Last Vital Signs Temp 97.6 F 01/18/24 11:32 Pulse 97 01/18/24 11:32 Resp 17 01/18/24 13:38 BP 109/56 01/18/24 11:32 Pulse Ox 94 01/18/24 11:32 O2 Del Method Room Air 01/18/24 11:32 O2 Flow Rate 3 01/17/24 14:25 01/17/24 01/18/24 01/18/24 22:59 06:59 14:59 Intake Total 1441.333 / 3491.333 968.333 / 4459.666 1511 / 1511 Output Total 500 / 850 100 / 950 Balance 941.333 / 2641.333 868.333 / 3509.666 1511 / 1511 Weight last 48 hrs Weight 136 lb 12.8 oz Weight 129 lb 4 oz Weight 134 lb 4 oz Physical Exam 2 Narrative: Exam is limited due to patient's mental status. He would not follow simple instructions or commands. Patient grimaced in pain when I moved his right leg. The dressing on his right leg was dry and intact and compartments were soft and compressible. Pedal pulse 2+ and cap refill under 2 seconds. Toes were warm and well-perfused. Const: COMMON NORMALS: no acute distress and alert Resp: COMMON NORMALS: normal respiratory effort and No retractions Cardio: COMMON NORMALS: Peripheral pulses 2+ throughout PERIPHERAL PULSES: Peripheral pulses 2+ throughout Neuro: SENSORIUM/ORIENTATION: Yes alert Skin: GENERAL SKIN EXAM: dry skin Urinary Catheter Management: Banks: Cath Placed During This Visit: yes, but has since been removed by the nurse Reason for Continuing Indwelling Catheter: Decision to DC Catheter Urinary Catheter Date of Insertion: 01/16/24 Date Urinary Catheter Removed: 01/18/24 Time Urinary Catheter Discontinued: 00:44 Data 01/18/24 10:50 01/18/24 10:50 Micro: Microbiology 01/16/24 09:20 Blood Culture - Preliminary Blood NEGATIVE TO DATE 01/16/24 09:00 Blood Culture - Preliminary Blood NEGATIVE TO DATE A&P Assessment and plan (1) Closed comminuted intertrochanteric fracture of right femur: Plan Plan: -Imaging and Labs reviewed --hemoglobin 9.6 today, blood cultures negative to date. -Hospitalist on board for medical management. -VTE prophylaxis -Weightbearing as tolerated on right leg -Pain control -PT/OT -Case management working on intermediate facility placement Ortho will continue to follow daily. Attestations 2 Medical Necessity Statement*: Ongoing care for right hip fracture Coding Level of Care Code [facility] Diagnoses Closed comminuted intertrochanteric fracture of right femur S72.141A
--- NOTE | 2024-01-18 15:05 | PC.SOCIAL ---
IMM Updated Updated pt's family on IMM. No questions voiced. Provided pt a copy. Initialed, dated, & timed a copy & placed in chart.
[2024-01-18] MEDS: tamsulosin 0.4 mg Capsule 0.400000000000000022 MG PO (15:20)
[2024-01-18] MEDS: loratadine 10 mg Tablet PO (15:20)
[2024-01-18] MEDS: chlorhexidine gluconate 0.12% Btl 473 mL 30 ML MUCOUS MEM (18:09)
[2024-01-18] MEDS: gabapentin 300 mg Capsule PO (21:57)
[2024-01-19] VITALS (11 sets, daily range): BP systolic 102–126; BP diastolic 52–65; PULSE 78–99; RESP 15–18; TEMP 36.4–36.8; O2SAT 90–97
[2024-01-19 06:40] LABS: Basophils % 0.3 %; Eosinophils # 0.1 10^3/uL (0.0-0.8); Eosinophils % 1.2 %; Hematocrit 29.5 % (37-53); Lymphocytes # 1.2 10^3/uL (0.8-4.8); Lymphocytes % 17.6 %; Mean Corpuscular HGB Conc 33.6 g/dL (30-55); Mean Corpuscular Volume 95.5 fl (82-101); Mean Platelet Volume 9.7 fL (7.4-10.4); Monocytes % 15.3 %; Neutrophils # 4.21 10^3/uL (1.8-7.7); Neutrophils % 63.9 %; Nucleated Red Blood Cells % 0 %; Platelet Count 163 10^3/cmm (157-399); Red Blood Count 3.09 10^6/uL (3.85-5.65); Red Cell Distribution Width 18.2 % (12.1-15.1); White Blood Count 6.59 10^3/uL (3.29-11.43)
[2024-01-19 06:53] LABS: Alanine Aminotransferase 20 U/L (0-41); Albumin Level 2.9 g/dL (3.5-5.2); Alkaline Phosphatase 75 U/L (40-130); Anion Gap 17.2 (5-19); Aspartate Amino Transferase 98 U/L (0-40); Blood Urea Nitrogen 28 mg/dL (8-23); Carbon Dioxide 19 mmol/L (22-29); Chloride 115 mmol/L (98-107); Creatinine Clr Calc Pharmacy 53.1896; Globulin 2.3 g/dL (1.3-4.6); Glucose 83 mg/dL (65-115); Osmolality Calculated 309 mOsm/kg (285-295); Potassium 4.2 mmol/L (3.5-5.1); Sodium 147 mmol/L (136-145); Total Bilirubin 0.8 mg/dL (0.15-1.2); Total Protein 5.2 g/dL (6.6-8.7)
[2024-01-19 08:11] LABS: Slide Review Slide Review Perform
--- NOTE | 2024-01-19 08:21 | PC.PT ---
Attempted PT evaluation for second day. Pt was able to give me his name and date of . However, he did not know where he was or why he was in the hospital. When therapist explained that he was in hospital after surgery on his hip, he denied this. When therapist tried explaining this again, he became a little agitated, stating, I did not have surgery . Attempted to move pt to sitting edge of bed, but he became more agitated and stated he did not want to set up. Plan on attempting PT eval one more time; however, pt does not seem to be appropriate for PT at this time.
[2024-01-19] MEDS: loratadine 10 mg Tablet PO (08:50)
[2024-01-19] MEDS: iron polysaccharide complex 150 mg Capsule PO ×2 (08:50→17:10)
[2024-01-19] MEDS: multivitamin therapeutic Tablet 1 TAB PO (08:50)
[2024-01-19] MEDS: docusate sodium 100 mg Capsule PO ×2 (08:50→17:10)
[2024-01-19] MEDS: oxyCODONE-APAP 5-325 mg Tablet 1 TAB PO ×3 (08:50→17:10)
[2024-01-19] MEDS: calcium carb-vit d 600mg/400unit 1 Tablet 1 EACH PO ×2 (08:50→17:10)
[2024-01-19] MEDS: mupirocin oint 22 gm 1 APPLIC NASAL ×2 (08:51→17:10)
[2024-01-19] MEDS: chlorhexidine gluconate 0.12% Btl 473 mL 30 ML MUCOUS MEM ×4 (08:51→22:36)
[2024-01-19] MEDS: tamsulosin 0.4 mg Capsule 0.400000000000000022 MG PO (08:51)
[2024-01-19] MEDS: sodium chloride 0.45% 1,000 ML 100 ML IV ×2 (08:52→17:10)
--- NOTE | 2024-01-19 09:50 | P.PN_ITS ---
Subjective 2 Subjective: Patient awakens easily. He is confused. He can follow directions without difficulty. Medications: Reviewed: Yes Vitals/I&O/Wt Last Vital Signs Temp 98.3 F 01/19/24 08:00 Pulse 94 01/19/24 08:00 Resp 18 01/19/24 08:50 BP 111/58 01/19/24 08:00 Pulse Ox 92 01/19/24 08:00 O2 Del Method Room Air 01/19/24 08:00 O2 Flow Rate 3 01/17/24 14:25 01/18/24 01/19/24 01/19/24 22:59 06:59 14:59 Intake Total 1236 / 2797 60 / 60 Output Total 275 / 275 Balance -275 / 1286 1236 / 2522 60 / 60 Weight last 48 hrs Weight 63.106 kg Weight 62.051 kg Physical Exam 2 Narrative: General exam no distress Neck supple no lymphadenopathy thyromegaly Cardiovascular regular rate and rhythm Lungs clear no wheezing or crackles Abdomen is soft, scaphoid, no obvious organomegaly Extremities no cyanosis clubbing. Extensive zoster overlying what appears to be an unstageable soft right heel ulcer. Neuro: No focal deficits Skin extensive zoster, both sides of chest, right face, right leg. Not yet completely scabbed. Urinary Catheter Management: Banks: Cath Placed During This Visit: yes, but has since been removed by the nurse Reason for Continuing Indwelling Catheter: Decision to DC Catheter Urinary Catheter Date of Insertion: 01/16/24 Date Urinary Catheter Removed: 01/18/24 Time Urinary Catheter Discontinued: 00:44 Data 01/19/24 05:19 01/19/24 05:19 A&P Assessment and plan (1) Closed right hip fracture: Patient with closed hip fracture He is now postoperative day #2 status post repair Orthopedic consultation appreciated Laboratory reviewed (2) Disseminated varicella: Patient with disseminated zoster Continue Acyclovir Ophthalmology consultation appreciated Isolation precautions (3) Anemia: Hemoglobin stable Protonix prophylactically Stool Hemoccult pending, B12 and folate normal. Iron saturation slightly low. Transfused 2 units of packed red blood cells for hemoglobin of 7 on January 16 (4) Thrombocytopenia: Patient with significant thrombocytopenia with a platelet count of 46,000 going to surgery Platelet transfusion is appropriate prior to surgery and was given January 15 2 units with good response. Platelet count recovering (5) Seropositive rheumatoid arthritis of multiple sites: Hold any immune suppressants. From my understanding he was on methotrexate. (6) Cellulitis: Concern of cellulitis right heel. Continue vancomycin. Blood culture no growth to date Plan Hypernatremia. Overall poor patient p.o. intake. Change fluids to half-normal saline. Repeat sodium tomorrow. Multiple other medical problems outlined in past medical history Allow natural SCDs for DVT prophylaxis, anticoagulation contraindicated secondary to thrombocytopenia Patient with high risk of decompensation considering disseminated zoster, hip fracture, need for blood transfusion today and will need close monitoring and repeat laboratory tomorrow. If p.o. intake can increase to the point he will not get dehydrated, he could potentially switch to acyclovir p.o. and be transitioned over to skilled care. Hopefully this can happen in the next 1 to 2 days. Attestations 2 Medical Necessity Statement*: Needs continued hospitalization for hydration, secondary to hyponatremia, continued follow-up for hip fracture and IV acyclovir for disseminated zoster Diagnoses Closed right hip fracture S72.001A Disseminated varicella B01.9 Anemia D64.9 Thrombocytopenia D69.6 Seropositive rheumatoid arthritis of multiple sites M05.79 Cellulitis L03.90 Time Spent (min) 25
[2024-01-19] MEDS: SODIUM CHLORIDE 0.9% IV ×2 (10:59→22:36)
[2024-01-19] MEDS: ACYCLOVIR IV ×2 (10:59→22:36)
[2024-01-19] MEDS: vancomycin 750 MG in sodium chloride 0.9% 250 ML 250 MG IV (11:42)
[2024-01-19] MEDS: pantoprazole 40 mg SDV IVP ×2 (11:43)
--- NOTE | 2024-01-19 17:00 | P.PN_ITS ---
Vitals/I&O/Wt Last Vital Signs Temp 97.8 F 01/20/24 08:00 Pulse 89 01/20/24 08:00 Resp 18 01/20/24 08:00 BP 113/67 01/20/24 08:00 Pulse Ox 91 01/20/24 08:00 O2 Del Method Room Air 01/20/24 00:00 O2 Flow Rate 3 01/17/24 14:25 01/19/24 01/20/24 01/20/24 22:59 06:59 14:59 Intake Total 1010 / 2701 1212.667 / 3913.667 Balance 1010 / 2701 1212.667 / 3913.667 Weight last 48 hrs Weight 147 lb 12.8 oz Weight 139 lb 2 oz Physical Exam 2 Urinary Catheter Management: Banks: Cath Placed During This Visit: yes, but has since been removed by the nurse Reason for Continuing Indwelling Catheter: Decision to DC Catheter Urinary Catheter Date of Insertion: 01/16/24 Date Urinary Catheter Removed: 01/18/24 Time Urinary Catheter Discontinued: 00:44 Data 01/20/24 05:20 01/20/24 05:20 Coding Level of Care Code Acute Code for Chg Fwd
[2024-01-19] MEDS: HYDROmorphone 1 mg/mL INJ 1 mL 0.5 MG IVP (19:53)
[2024-01-19] MEDS: gabapentin 300 mg Capsule PO (20:01)
[2024-01-20] VITALS (8 sets, daily range): BP systolic 100–113; BP diastolic 58–67; PULSE 60–89; RESP 17–19; TEMP 36.2–36.7; O2SAT 91–96
[2024-01-20] MEDS: pantoprazole 40 mg SDV IVP ×2 (00:50→11:30)
[2024-01-20] MEDS: oxyCODONE-APAP 5-325 mg Tablet 1 TAB PO ×2 (00:53→14:07)
[2024-01-20] MEDS: sodium chloride 0.45% 1,000 ML 100 ML IV ×2 (02:05→11:04)
[2024-01-20] MEDS: HYDROmorphone 1 mg/mL INJ 1 mL 0.5 MG IVP (05:25)
[2024-01-20 06:38] LABS: Basophils % 0.2 %; Eosinophils # 0.1 10^3/uL (0.0-0.8); Eosinophils % 2.2 %; Hematocrit 27.9 % (37-53); Lymphocytes # 1.1 10^3/uL (0.8-4.8); Lymphocytes % 18.8 %; Mean Corpuscular HGB Conc 33.3 g/dL (30-55); Mean Corpuscular Hemoglobin 32.2 pg (27-33); Mean Corpuscular Volume 96.5 fl (82-101); Mean Platelet Volume 9.7 fL (7.4-10.4); Monocytes # 1.1 10^3/uL (0.2-0.9); Monocytes % 18.4 %; Neutrophils # 3.45 10^3/uL (1.8-7.7); Neutrophils % 57.7 %; Nucleated Red Blood Cells % 0 %; Platelet Count 166 10^3/cmm (157-399); Red Blood Count 2.89 10^6/uL (3.85-5.65); Red Cell Distribution Width 17.9 % (12.1-15.1); White Blood Count 5.97 10^3/uL (3.29-11.43)
[2024-01-20 06:56] LABS: Alanine Aminotransferase 17 U/L (0-41); Albumin Level 2.5 g/dL (3.5-5.2); Alkaline Phosphatase 53 U/L (40-130); Anion Gap 13.7 (5-19); Aspartate Amino Transferase 93 U/L (0-40); Blood Urea Nitrogen 22 mg/dL (8-23); Calcium 7.9 mg/dL (8.5-10.5); Carbon Dioxide 18 mmol/L (22-29); Chloride 116 mmol/L (98-107); Creatinine Clr Calc Pharmacy 61.2593; Globulin 2.2 g/dL (1.3-4.6); Glucose 79 mg/dL (65-115); Magnesium 1.8 mg/dL (1.7-2.3); Osmolality Calculated 300 mOsm/kg (285-295); Potassium 3.7 mmol/L (3.5-5.1); Sodium 144 mmol/L (136-145); Total Bilirubin 0.7 mg/dL (0.15-1.2); Total Protein 4.7 g/dL (6.6-8.7)
[2024-01-20] MEDS: tamsulosin 0.4 mg Capsule 0.400000000000000022 MG PO (07:52)
[2024-01-20] MEDS: calcium carb-vit d 600mg/400unit 1 Tablet 1 EACH PO (07:52)
[2024-01-20] MEDS: docusate sodium 100 mg Capsule PO (07:52)
[2024-01-20] MEDS: loratadine 10 mg Tablet PO (07:52)
[2024-01-20] MEDS: multivitamin therapeutic Tablet 1 TAB PO (07:52)
[2024-01-20] MEDS: iron polysaccharide complex 150 mg Capsule PO (07:52)
[2024-01-20] MEDS: mupirocin oint 22 gm 1 APPLIC NASAL (07:53)
[2024-01-20] MEDS: chlorhexidine gluconate 0.12% Btl 473 mL 30 ML MUCOUS MEM ×2 (07:53→11:31)
[2024-01-20] MEDS: apixaban 5 mg Tablet 2.5 MG PO (09:24)
[2024-01-20] MEDS: SODIUM CHLORIDE 0.9% IV (09:25)
[2024-01-20] MEDS: ACYCLOVIR IV (09:25)
--- NOTE | 2024-01-20 09:25 | P.DS_ITS ---
Discharge Providers Date of Admission: 01/16/24 11:42 Date of Discharge: January 20, 2024 Attending Provider at Admission: Carlo Ram MD Attending Provider at Discharge: Carlo Ram MD Primary Care Provider: Sage Black MD Diagnoses at Discharge Discharge Diagnosis (1) Closed right hip fracture: Status: Acute (2) Disseminated varicella: Status: Acute (3) Anemia: Status: Acute (4) Thrombocytopenia: Status: Acute (5) Seropositive rheumatoid arthritis of multiple sites: Status: Acute (6) Cellulitis: Status: Acute Reason for Visit Reason for Visit: fall, ams Hospital Course Hospital Course Patient is an 88-year-old white male who presented to the emergency department after a fall, mechanical. He was found to have a right hip fracture. He had also been suffering from disseminated zoster presumably from methotrexate he was on for rheumatoid arthritis. He was placed on acyclovir IV. Operative repair of his hip occurred on January 16 after he was transfused platelets secondary to significant thrombocytopenia. He was also anemic and transfused blood. I discussed with family workup of his anemia but considering his overall health this was deferred and he was placed on Protonix. He recovered nicely from the hip fracture, and was improving in regards to the zoster. He was able to hydrate himself, and although still intermittently confused it was thought he could transfer to the nursing facility for rehabilitation. His intermittent confusion is attributed to his acute illness as well as dementia. From what I understand he is not able to manage living at home alone at baseline. His family was given option ask questions, and agreed with the plan. He will need follow-up as outlined in his discharge summary with ophthalmology, orthopedics, and primary care provider at [facility]. He will finish up a short course of doxycycline for concerns of cellulitis left heel Physical Exam Narrative: General exam no distress Skin zoster, some scabbed but improved from admission Cardiovascular regular rate and rhythm with a 2/6 systolic murmur Lungs clear Abdomen soft Extremities no cyanosis clubbing or edema. Urinary Catheter Management: Banks: Cath Placed During This Visit: yes, but has since been removed by the nurse Reason for Continuing Indwelling Catheter: Decision to DC Catheter Urinary Catheter Date of Insertion: 01/16/24 Date Urinary Catheter Removed: 01/18/24 Time Urinary Catheter Discontinued: 00:44 Discharge Data Studies Completed and Pending Completed Studies During Hospitalization Category Date Time Status CT cervical spin wo con* [id number] Stat Cat Scan 01/16/24 09:[address] head wo con* [id number] Stat Cat Scan 01/16/24 09:17 Completed XR chest 1V portable [id number] Stat Exams 01/16/24 08:44 Completed XR femur RT min 2V* [id number] Stat Exams 01/16/24 09:32 Completed XR foot RT 2V [id number] Stat Exams 01/16/24 11:09 Completed XR hip RT 2-3V wo/w pel* [id number] Routine Exams 01/17/24 13:39 Completed XR hip RT 2-3V wo/w pel* [id number] Stat Exams 01/16/24 09:13 Completed XR knee RT 1-2V [id number] Stat Exams 01/16/24 09:32 Completed Pending at discharge Category Date Time Status Blood Culture Stat Lab 01/16/24 09:20 Results Fecal Occult Blood [Immunochemical Fecal OCB] Routine Lab 01/16/24 13:30 Uncollected Vancomycin Trough Timed Lab 01/20/24 08:35 Received Radiology Impressions Chest X-Ray 01/16/24 08:44 IMPRESSION: No definite acute abnormality. Increased density in the apex of the right hemithorax. Possibly a positional issue with increased overlying soft tissue. This region may be imaged on the scheduled CT scan of the cervical spine. Will review and this examination is completed. Cervical Spine CT 01/16/24 09:17 IMPRESSION: 1. No acute cervical spine fracture. 2. Multilevel facet joint arthritis and foraminal stenoses. 3. Osteopenia. Head CT 01/16/24 09:17 IMPRESSION: 1. No acute intracranial hemorrhage or edema. 2. Moderate atrophy and small vessel ischemic disease. 3. No skull fracture. 4. Moderate soft tissue edema centered over the visualized RIGHT facial bones. This may be posttraumatic or infectious. Femur X-Ray 01/16/24 09:32 IMPRESSION: No fracture of the femur distal to the intertrochanteric fracture. Severe osteoarthropathy in the right knee. Knee X-Ray 01/16/24 09:32 IMPRESSION: Severe arthritic changes. Foot X-Ray 01/16/24 11:09 IMPRESSION: 1. No obvious acute findings. 2. Additional details as above. Hip/Pelvis X-Ray 01/17/24 13:39 IMPRESSION: Good anatomic alignment status post ORIF of the right hip Laboratory Results WBC 5.97 10^3/uL (3.29-11.43) 01/20/24 05:20 RBC 2.89 10^6/uL (3.85-5.65) L 01/20/24 05:20 Hgb 9.30 g/dL (11.27-16.99) L 01/20/24 05:20 Hct 27.9 % (37-53) L 01/20/24 05:20 MCV 96.5 fl (82-101) 01/20/24 05:20 MCH 32.2 pg (27-33) 01/20/24 05:20 MCHC 33.3 g/dL (30-55) 01/20/24 05:20 RDW 17.9 % (12.1-15.1) H 01/20/24 05:20 Plt Count 166 10^3/cmm (157-399) 01/20/24 05:20 MPV 9.7 fL (7.4-10.4) 01/20/24 05:20 Neut % (Auto) 57.7 % 01/20/24 05:20 Lymph % (Auto) 18.8 % 01/20/24 05:20 Whiteside % (Auto) 18.4 % 01/20/24 05:20 Eos % (Auto) 2.2 % 01/20/24 05:20 Baso % (Auto) 0.2 % 01/20/24 05:20 Neut # (Auto) 3.45 10^3/uL (1.8-7.7) 01/20/24 05:20 Lymph # (Auto) 1.1 10^3/uL (0.8-4.8) 01/20/24 05:20 [place]ites[place] # (Auto) 1.1 10^3/uL (0.2-0.9) H 01/20/24 05:20 Eos # (Auto) 0.1 10^3/uL (0.0-0.8) 01/20/24 05:20 Baso # (Auto) 0.0 10^3/uL (0.0-0.1) 01/20/24 05:20 Nucleated RBC % (auto) 0 % 01/20/24 05:20 Total Counted 100 (0-100) 01/17/24 05:50 Atypical Lymphs % 7.0 % (0-5) H 01/17/24 05:50 Absolute Neutrophils 2.5 10^3/cmm (1.4-6.5) 01/17/24 05:50 Segmented Neutrophils 51 % 01/17/24 05:50 Abs Segm Neuts (Man) 2.2 10/cmm (1.6-7.1) 01/17/24 05:50 Band Neutrophils 8.0 % 01/17/24 05:50 Abs Band Neuts (Man) 0.3 10^3/cmm (0.0-1.2) 01/17/24 05:50 Absolute Lymphocytes 1.0 10^3/cmm (1.2-3.4) L 01/17/24 05:50 Lymphocytes (Manual) 17 % 01/17/24 05:50 Monocytes (Manual) 5.0 % 01/17/24 05:50 Absolute Monocytes 0.2 10^3/cmm (0.1-0.6) 01/17/24 05:50 Eosinophils (Manual) 5 % 01/17/24 05:50 Absolute Eosinophils 0.2 10^3/cmm (0.0-0.7) 01/17/24 05:50 Basophils (Manual) 1.0 % 01/17/24 05:50 Absolute Basophils 0.0 10^3/cmm (0.0-0.2) 01/17/24 05:50 Metamyelocytes 5.0 % 01/17/24 05:50 Myelocytes 1.0 % 01/17/24 05:50 Nucleated RBCs # 0.0 /100WBC 01/20/24 05:20 Platelet Estimate Decreased (Normal) 01/17/24 05:50 Giant Platelets Trace 01/17/24 05:50 Anisocytosis Trace 01/17/24 05:50 Macrocytosis 1+ H 01/17/24 05:50 PT 16.40 SECONDS (12.1-14.9) H 01/16/24 09:00 INR 1.28 (0.8-1.2) H 01/16/24 09:00 Sodium 144 mmol/L (136-145) 01/20/24 05:20 Potassium 3.7 mmol/L (3.5-5.1) 01/20/24 05:20 Chloride 116 mmol/L (98-107) H 01/20/24 05:20 Carbon Dioxide 18 mmol/L (22-29) L 01/20/24 05:20 Anion Gap 13.7 (5-19) 01/20/24 05:20 BUN 22 mg/dL (8-23) 01/20/24 05:20 Creatinine 0.8 mg/dL (0.7-1.2) 01/20/24 05:20 GFR Calculation Not Reportable 01/20/24 05:20 Glucose 79 mg/dL (65-115) 01/20/24 05:20 Calculated Osmolality 300 mOsm/kg (285-295) H 01/20/24 05:20 Lactic Acid 1.4 mmol/L (0.5-2.2) 01/16/24 09:00 Calcium 7.9 mg/dL (8.5-10.5) L 01/20/24 05:20 Magnesium 1.8 mg/dL (1.7-2.3) 01/20/24 05:20 Iron 22 ug/dL (59-158) L 01/16/24 09:00 TIBC 139 mcg/dl 01/16/24 09:00 % Saturation 15.8 % (20-50) L 01/16/24 09:00 Unsat Iron Binding 117 ug/dL (112-347) 01/16/24 09:00 Ferritin 1379 ng/mL (30-400) H 01/16/24 09:00 Total Bilirubin 0.7 mg/dL (0.15-1.2) 01/20/24 05:20 AST 93 U/L (0-40) H 01/20/24 05:20 ALT 17 U/L (0-41) 01/20/24 05:20 Alkaline Phosphatase 53 U/L (40-130) 01/20/24 05:20 Creatine Kinase 63 U/L (39-308) 01/16/24 09:00 Total Protein 4.7 g/dL (6.6-8.7) L 01/20/24 05:20 Albumin 2.5 g/dL (3.5-5.2) L 01/20/24 05:20 Globulin 2.2 g/dL (1.3-4.6) 01/20/24 05:20 Vitamin B12 324 pg/mL (232-1245) 01/16/24 09:00 Folate 10.9 ng/mL (4.5-32.2) 01/16/24 09:00 TSH 4.72 uIU/mL (0.27-4.20) H 01/16/24 09:00 Urine Color Yellow (Yellow) 01/16/24 10:55 Urine Appearance Clear (CLEAR) 01/16/24 10:55 Urine pH 5 (5-7) 01/16/24 10:55 Ur Specific [place] 1.020 (1.005-1.030) 01/16/24 10:55 Urine Protein Trace (Negative) 01/16/24 10:55 Urine Glucose (UA) Norm (Normal) 01/16/24 10:55 Urine Ketones Negative (Negative) 01/16/24 10:55 Urine Blood Neg (Negative) 01/16/24 10:55 Urine Nitrate Negative (Negative) 01/16/24 10:55 Urine Bilirubin Neg (Negative) 01/16/24 10:55 Urine Urobilinogen Neg mg/dL (Negative) 01/16/24 10:55 Ur Leukocyte Esterase Negative (Negative) 01/16/24 10:55 Urine RBC Rare /hpf (0-2) 01/16/24 10:55 Urine WBC 0-4 /hpf (0-5) H 01/16/24 10:55 Ur Squamous Epith Cells 0-4 /hpf (0-5) H 01/16/24 10:55 Ur Transition Epith Cell 0-4 /hpf 01/16/24 10:55 Calcium Oxalate Crystal 0-4 /hpf H 01/16/24 10:55 Amorphous Sediment Not Reportable 01/16/24 10:55 Urine Bacteria Trace /hpf (NONE) 01/16/24 10:55 Hyaline Casts 0-4 /lpf H 01/16/24 10:55 Urine Mucus Trace /hpf 01/16/24 10:55 Blood Type O Positive 01/16/24 10:17 Rho(D) Type Rh positive 01/16/24 10:17 Antibody Screen Negative 01/16/24 10:17 Crossmatch See Detail 01/16/24 10:17 Vitals Last Vital Signs Temp 97.8 F 01/20/24 08:00 Pulse 89 01/20/24 08:00 Resp 18 01/20/24 08:00 BP 113/67 01/20/24 08:00 Pulse Ox 91 01/20/24 08:00 O2 Del Method Room Air 01/20/24 00:00 O2 Flow Rate 3 01/17/24 14:25 Discharge Plan Discharge Patient Disposition: Xfer SNF Condition: Stable Prescriptions: New tramadol 50 mg Tablet 50 mg PO Q4H PRN (Reason: Mild Pain) Qty: 20 0RF oxycodone-acetaminophen 5-325 mg Tablet 1 tab PO Q4H PRN (Reason: Moderate Pain) Qty: 20 0RF docusate sodium 100 mg Capsule 100 mg PO BID Qty: 60 0RF Eliquis 5 mg Tablet 2.5 mg PO BID@0900,2100 Qty: 30 0RF doxycycline monohydrate 100 mg capsule 100 mg PO BID Qty: 14 0RF valacyclovir 1 gram tablet 1,000 mg PO TID Qty: 30 0RF tamsulosin 0.4 mg Capsule 0.4 mg PO DAILY Qty: 30 0RF pantoprazole [Protonix] 40 mg tablet,delayed release (DR/EC) 40 mg PO BID Qty: 60 0RF Continued Glucos Chond Cplx Advanced 750 mg-100 mg- 125 mg-1.65 mg tablet 3 tab PO DAILY cholecalciferol (vitamin D3) 125 mcg (5,000 unit) capsule 125 mcg PO DAILY ascorbic acid (vitamin C) 1,000 mg tablet 1 gm PO DAILY folic acid 1 mg tablet 1 mg PO DAILY Qty: 90 0RF gabapentin 300 mg capsule 300 mg PO BEDTIME mupirocin 2 % ointment 1 applic TOPICAL TID Pepcid AC 10 mg Tablet 10 mg PO DAILY loratadine 10 mg Tablet 10 mg PO DAILY Discontinued sulfamethoxazole-trimethoprim 800-160 mg tablet 1 tab PO BID ibuprofen 600 mg tablet 600 mg PO TID PRN (Reason: Pain) Discharge Orders: Discharge Order (Routine); Ordered 01/20/24 Ordered By: Carlo Ram Referrals: [facility] [Outside] Discharge Diet: Cardiac Discharge Activity: Increase activity as tolerated and Limit activity as instructed Patient Instructions: Opioid Safety Activity Restrictions/Additional Instructions: Postop instructions per Ortho as well as other follow-up Please arrange follow-up with ophthalmology Valacyclovir should be 1 g 3 times daily for 10 more days, monitoring to make sure all lesions have scabbed Please arrange follow-up with his pelt dropper in 2 weeks Katieis 2.5 mg twice daily for 4 weeks, then may discontinue CBC, CMP in 5 days Return for any concerns Encourage p.o. intake. Note that patient is currently being fed. Follow-up with primary care provider at [facility]. Discharge Attestations Time Spent in Discharge Care*: greater than 30 min Quality Metrics Clinical Quality Measures [ No reported AMI, CVA or VTE this stay] Coding Level of Care Code 34346 Total time (in minutes) for Discharge: 39 Diagnoses Closed right hip fracture S72.001A Disseminated varicella B01.9 Anemia D64.9 Thrombocytopenia D69.6 Seropositive rheumatoid arthritis of multiple sites M05.79 Cellulitis L03.90
[2024-01-20 09:32] LABS: Vancomycin Trough 8.4 ug/mL (10-15)
[2024-01-20 10:18] LABS: SARS Covid-2 Antigen negative (Negative)
--- NOTE | 2024-01-20 10:18 | PC.PT ---
Attempted twice yesterday to do eval but unable due to increased agitation. No plans to attempt eval this morning due to pt transfer to [place] today.
[2024-01-20] MEDS: vancomycin 1,000 MG in sodium chloride 0.9% 250 ML 250 MG IV (11:02)
--- NOTE | 2024-01-20 12:42 | PC.NURSE ---
Report called to Molly at [facility].
--- NOTE | 2024-01-20 15:39 | PC.NURSE ---
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 Son at side. Son takes belongings with him.
== END 2024-01-20 15:39 | disposition skilled nursing facility (03) | DRG 481 ==
LOC: ER 09:52 → MEDSURG 11:43 → ER IP 12:16 → MEDSURG 14:46
PROVIDERS: Student in an Organized Health Care Education/Training Program; Admitting Provider Internal Medicine; Emergency Provider Family Medicine; PCP Family Medicine; Visit Provider Internal Medicine
PROC: 0QS636Z Reposition Right Upper Femur with Intramedullary Internal Fixation Device, Percutaneous Approach (ICD-10-PCS; CPT 27245; principal; 2024-01-17 12:00)
DX: S72.141A Displaced intertrochanteric fracture of right femur, initial encounter for closed fracture (principal); E87.0 Hyperosmolality and hypernatremia; L03.115 Cellulitis of right lower limb; W18.30XA Fall on same level, unspecified, initial encounter; Z11.52 Encounter for screening for COVID-19; M05.9 Rheumatoid arthritis with rheumatoid factor, unspecified; Z87.891 Personal history of nicotine dependence; D64.9 Anemia, unspecified; D69.6 Thrombocytopenia, unspecified; H91.90 Unspecified hearing loss, unspecified ear; F03.90 Unspecified dementia, unspecified severity, without behavioral disturbance, psychotic disturbance, mood disturbance, and anxiety; M21.262 Flexion deformity, left knee; M21.261 Flexion deformity, right knee; M21.222 Flexion deformity, left elbow; M21.221 Flexion deformity, right elbow; Z85.828 Personal history of other malignant neoplasm of skin; B02.9 Zoster without complications; Z66 Do not resuscitate
CPT/HCPCS: 36415; 36430; 51702; 51798; 70450; 71045; 72125; 73502; 73552; 73560; 73620; 76000; 80053; 80202; 81001; 82550; 82607; 82728; 82746; 83540; 83550; 83605; 83735; 84443; 85007; 85014; 85018; 85025; 85610; 86850; 86900; 86920; 87040; 87426; 92523; 92610; 93005; 96365; 96367; 96372; 96375; 97167; 97535; 99285; 99291; 99292; C1713; C9113; J0133; J0690; J1100; J1170; J1630; J2060; J2270; J2405; J2704; J3010; J3370; J7030; J7050; P9016; P9035

== ENCOUNTER 2024-02-01 13:19 | Emergency (ER) | payer MEDICARE, MEDICAID, SELFPAY ==
[2024-02-01] VITALS (12 sets, daily range): BP systolic 107–127; BP diastolic 58–94; PULSE 84–96; RESP 18–20; TEMP 36.9; O2SAT 95–100; BMI 21.2
--- NOTE | 2024-02-01 13:35 | ED_ITS ---
HPI - Skin/Abscess/Foreign Bdy 2 General: Chief complaint: Wound/Laceration Stated complaint: Rash Time Seen by Provider: 02/01/24 13:23 Source: EMS Mode of arrival: EMS Limitations: altered mental status History of Present Illness: Patient is an 88-year-old male who presents from his correction facility at the request of the senior living provider for evaluation of his disseminated zoster mainly to his face. Patient was admitted earlier this month for a hip fracture and disseminated zoster. He was receiving IV acyclovir while in the hospital. At time of discharge rash seem to be improving. He was transitioned to oral valacyclovir at time of discharge. He was consulted on by ophthalmology while in the hospital given the V1 through 3 distribution. Plan was for ophthalmology follow up following discharge. Provider through senior living was concerned about need for additional IV antivirals vs debridement vs possible transfer. Patient has baseline confusion/dementia. He is not sure why he is here. 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 Osteoarthritis Immunization counseling High risk medication use Seropositive rheumatoid arthritis of multiple sites Joint pain History of skin cancer in adulthood Surgical History History of cholecystectomy Family History Other Cancer Diabetes Hx of migraines Denies family history of Rheumatoid arthritis Lupus Lung disease Hypertension Stroke Social History Smoking and tobacco/nicotine status: former use of tobacco/nicotine Alcohol intake: former Physical Exam 2 Const: COMMON NORMALS: alert EXAM LIMITATIONS: altered mental status (at baseline per correction facility) GENERAL APPEARANCE: cooperative O RIENTATION/CONSCIOUSNESS: Yes awake, Yes oriented to person and Yes oriented to place OTHER: patient is extremely hard of hearing HENMT: COMMON NORMALS: normocephalic and atraumatic HEAD & SCALP: n ormocephalic and atraumatic FACE & SINUS: other (severe V1-3 zoster with hemorrhagic crusting; no active lesions) Eye: OTHER: mild conjunctival injection Neck/C-Spine: COMMON NORMALS: no lymphadenopathy and no meningeal signs G ENERAL: Yes normal visual inspection Resp: COMMON NORMALS: normal respiratory effort and clear to auscultation bilaterally AUSCULTATION: clear to auscultation bilaterally Cardio: COMMON NORMALS: regular rate and regular rhythm RATE: regular rate RHYTHM: regular rhythm Back/Pelvis: THORACIC SPINE/UPPER BACK: No thoracic spinal tenderness L UMBAR SPINE/LOWER BACK: No lumbar spinal tenderness BACK IMAGE (MALE): 1. 2. 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 Ram graciously came and evaluated patient as he saw him last while in the hospital. He overall feels like rash is improving. He states almost all of the lesions regarding his trunk are gone. He feels the lesions to his legs are improved. He states there are no active lesions to his face. He states there is no additional need for antivirals at this time. Consultation #2: Dr. Tony-stated it was difficult to tell by the pictures whether he had active infection/lesions vs just a prolonged resolution which could be the case given the dissemination and immunocompromise status of the patient; stated she could see patient as soon as tomorrow in her office if needed Consultation #3: Dr. Shirley-he actually saw patient in his office this morning; he agrees in that he does not feel there are any active lesions present Vital Signs: Vital signs: Vital Signs Temperature 98.4 F 02/01/24 13:30 Pulse Rate 89 02/01/24 15:11 Blood Pressure 117/68 02/01/24 15:11 Pulse Oximetry 95 02/01/24 15:11 Oxygen Delivery Me thod Room Air 02/01/24 14:29 MDM - Skin/Abscess/Foreign Bdy Medicial Decision Making Patient is a nice 88-year-old male here from [facility] due to concerns of his facial disseminated zoster infection. Patient actually just saw ophthalmology, Dr. Shirley this morning. I did speak with him and he felt like all of patient's lesions were inactive at this time and there was no intraocular involvement. Stated there was no need for additional antivirals. I spoke to Dr. Ram who graciously came and evaluated patient here in the emergency department as he was the hospital last who discharged him. He too, felt like there were no active lesions and there was no need for additional antiviral therapy. I spoke to Dr. Tony who graciously will see patient in her office tomorrow. Patient's vital signs are stable. Dr. Ram mentioned his mentation is much improved from his time of discharge. His blood work does show a white count of 17.9. His CXR and UA are unremarkable. Nothing obvious on his physical exam to suggest severe infection. He is on Augmentin currently. He does have an unstageable heel ulcer that has been cared for at the senior living. He just completed his Doxycycline that he was discharged with from the hospital. Leukocytosis could be secondary to hemoconcentration. Recommend this be repeated later this week and patient be watched carefully for signs of infection. Return to ED precautions given. Medical Records I reviewed the patient's medical records. Lab Data I reviewed the patient's lab results. 02/01/24 14:07 02/01/24 14:07 Radiology Impressions Chest X-Ray 02/01/24 14:49 IMPRESSION: 1. No acute cardiopulmonary finding. Laboratory Results WBC 17.94 10^3/uL (3.29-11.43) H 02/01/24 14:07 RBC 2.48 10^6/uL (3.85-5.65) L 02/01/24 14:07 Hgb 8.40 g/dL (11.27-16.99) L 02/01/24 14:07 Hct 26.6 % (37-53) L 02/01/24 14:07 MCV 107.3 fl (82-101) H 02/01/24 14:07 MCH 33.9 pg (27-33) H 02/01/24 14:07 MCHC 31.6 g/dL (30-55) 02/01/24 14:07 RDW 22.0 % (12.1-15.1) H 02/01/24 14:07 Plt Count 292 10^3/cmm (157-399) 02/01/24 14:07 MPV 9.7 fL (7.4-10.4) 02/01/24 14:07 Neut % (Auto) 86.7 % 02/01/24 14:07 Lymph % (Auto) 6.0 % 02/01/24 14:07 [place] % (Auto) 5.8 % 02/01/24 14:07 Eos % (Auto) 0.1 % 02/01/24 14:07 Baso % (Auto) 0.3 % 02/01/24 14:07 Neut # (Auto) 15.55 10^3/uL (1.8-7.7) H 02/01/24 14:07 Lymph # (Auto) 1.1 10^3/uL (0.8-4.8) 02/01/24 14:07 [place] # (Auto) 1.0 10^3/uL (0.2-0.9) H 02/01/24 14:07 Eos # (Auto) 0.0 10^3/uL (0.0-0.8) 02/01/24 14:07 Baso # (Auto) 0.1 10^3/uL (0.0-0.1) 02/01/24 14:07 Nucleated RBC % (auto) 0 % 02/01/24 14:07 Nucleated RBCs # 0.0 /100WBC 02/01/24 14:07 PT 19.70 SECONDS (12.1-14.9) H 02/01/24 14:11 INR 1.61 (0.8-1.2) H 02/01/24 14:11 APTT 33.7 SECONDS (23.9-36.7) 02/01/24 14:11 Sodium 140 mmol/L (136-145) 02/01/24 14:07 Potassium 4.2 mmol/L (3.5-5.1) 02/01/24 14:07 Chloride 108 mmol/L (98-107) H 02/01/24 14:07 Carbon Dioxide 22 mmol/L (22-29) 02/01/24 14:07 Anion Gap 14.2 (5-19) 02/01/24 14:07 BUN 18 mg/dL (8-23) 02/01/24 14:07 Creatinine 0.9 mg/dL (0.7-1.2) 02/01/24 14:07 GFR Calculation Not Reportable 02/01/24 14:07 Glucose 187 mg/dL (65-115) H 02/01/24 14:07 Calculated Osmolality 297 mOsm/kg (285-295) H 02/01/24 14:07 Calcium 8.0 mg/dL (8.5-10.5) L 02/01/24 14:07 Total Bilirubin 0.5 mg/dL (0.15-1.2) 02/01/24 14:07 AST 23 U/L (0-40) 02/01/24 14:07 ALT 15 U/L (0-41) 02/01/24 14:07 Alkaline Phosphatase 108 U/L (40-130) 02/01/24 14:07 Total Protein 5.7 g/dL (6.6-8.7) L 02/01/24 14:07 Albumin 2.6 g/dL (3.5-5.2) L 02/01/24 14:07 Globulin 3.1 g/dL (1.3-4.6) 02/01/24 14:07 Urine Color Dark yellow (Yellow) 02/01/24 15:11 Urine Appearance Cloudy (CLEAR) A 02/01/24 15:11 Urine pH 5 (5-7) 02/01/24 15:11 Ur Specific [place] 1.020 (1.005-1.030) 02/01/24 15:11 Urine Protein Trace (Negative) 02/01/24 15:11 Urine Glucose (UA) Norm (Normal) 02/01/24 15:11 Urine Ketones 1+ (Negative) H 02/01/24 15:11 Urine Blood 3+ (Negative) H 02/01/24 15:11 Urine Nitrate Negative (Negative) 02/01/24 15:11 Urine Bilirubin Neg (Negative) 02/01/24 15:11 Urine Urobilinogen Norm mg/dL (Negative) 02/01/24 15:11 Ur Leukocyte Esterase Negative (Negative) 02/01/24 15:11 Urine RBC 5-10 /hpf (0-2) H 02/01/24 15:11 Urine WBC 0-4 /hpf (0-5) H 02/01/24 15:11 Ur Squamous Epith Cells 0-4 /hpf (0-5) H 02/01/24 15:11 Calcium Oxalate Crystal 0-4 /hpf H 02/01/24 15:11 Amorphous Sediment Not Reportable 02/01/24 15:11 Urine Bacteria 1+ /hpf (NONE) H 02/01/24 15:11 Hyaline Casts 10-15 /lpf H 02/01/24 15:11 Urine Mucus 3+ /hpf 02/01/24 15:11 All radiology interpretation(s) finalized by discharge Discharge Plan Discharge Patient Disposition: Home Clinical Impression: Disseminated varicella Condition: Stable Prescriptions: No Action Glucos Chond Cplx Advanced 750 mg-100 mg- 125 mg-1.65 mg tablet 3 tab PO DAILY cholecalciferol (vitamin D3) 125 mcg (5,000 unit) capsule 125 mcg PO DAILY ascorbic acid (vitamin C) 1,000 mg tablet 1 gm PO DAILY folic acid 1 mg tablet 1 mg PO DAILY Qty: 90 0RF gabapentin 300 mg capsule 300 mg PO BEDTIME famotidine [Pepcid AC] 10 mg Tablet 10 mg PO DAILY loratadine 10 mg Tablet 10 mg PO DAILY tamsulosin 0.4 mg Capsule 0.4 mg PO DAILY Qty: 30 0RF docusate sodium 100 mg Capsule 100 mg PO BID Qty: 60 0RF doxycycline monohydrate 100 mg capsule 100 mg PO BID Qty: 14 0RF valacyclovir 1 gram tablet 1,000 mg PO TID Qty: 30 0RF tramadol 50 mg Tablet 50 mg PO Q4H PRN (Reason: Mild Pain) Qty: 20 0RF oxycodone-acetaminophen 5-325 mg Tablet 1 tab PO Q4H PRN (Reason: Moderate Pain) Qty: 20 0RF Eliquis 5 mg Tablet 2.5 mg PO BID@0900,2100 Qty: 30 0RF pantoprazole [Protonix] 40 mg tablet,delayed release (DR/EC) 40 mg PO BID Qty: 60 0RF acetaminophen 325 mg Tablet 650 mg PO Q6H PRN (Reason: PAIN OR INCREASED TEMP) Milk of Axial Healthcareesia 400 mg/5 mL Suspension See Rx Instructions .ROUTE .COMPLEX PRN (Reason: Constipation) Rx Instructions: TAKE 30 ML BY MOUTH EVERY 72 HOURS NEEDED IF NO BM IN 3 DAYS. Dulcolax (bisacodyl) 10 mg Suppository See Rx Instructions .ROUTE .COMPLEX PRN (Reason: Constipation) Rx Instructions: ADMINISTER 1 SUPPOSITORY RECTALLY ONCE DAILY NEEDED. GIVE RECTALLY IF CAN'T TAKE BY MOUTH , IF NO RESULTS FROM MILK OF MAGNESIA. Fleet Enema 19-7 gram/118 mL Enema 118 ml [place] DAILY PRN (Reason: Constipation) Rx Instructions: IF NO RESULTS FROM MILK OF MAGNESIA AND BISACODYL. bisacodyl 5 mg Tablet 10 mg PO DAILY PRN (Reason: Constipation) Rx Instructions: IF NO RESULTS FROM MILK OF MAGNESIA Calmoseptine 0.44-20.6 % ointment See Rx Instructions .ROUTE .COMPLEX Rx Instructions: APPLY TO INTACT SKIN ONLY, EVERY SHIFT FOR PREVENTION. MediHoney (honey) 80 % Gel See Rx Instructions .ROUTE .COMPLEX Rx Instructions: APPLY TO ENTIRE RIGHT SIDE OF FACE THAT IS SCABBED AND ALL OTHER SCABBED AREAS ON BODY EVERY 4 HOURS AND NEEDED. amoxicillin-pot clavulanate 875-125 mg tablet 1 tab PO BID Discharge Orders: Discharge ED (Routine); Ordered 02/01/24 Ordered By: Lizte Hardin Referrals: Ava Tony DO [Physician] - Sage Black MD [Primary Care Provider] - Activity Restrictions/Additional Instructions: Patient was consulted on by Dr. Ram and he felt all patient's lesions were inactive and there is no further need for antiviral therapy at this time. I spoke with patient's manager stars who agreed. He should already have further follow-up appointments with Dr. Shirley as scheduled. PATIENT WILL SEE DR. TONY WITH DERMATOLOGY TOMORROW AT 10:00AM. PLEASE MAKE SURE HE HAS TRANSPORTATION TO THIS APPOINTMENT. Patient was noted to have a white count of 17,900 on today's visit. His chest x-ray and urine analysis did not reveal evidence of infection. He is already on Augmentin. Would like him to have repeat CBC performed possibly by the end of the week to make sure this is improving. Watch closely for fevers, elevated heart rate, altered mental status, or other signs of infection. Coding Level of Care Code ED Treatment Coordinator for Adam Lamas
--- NOTE | 2024-02-01 14:25 | PC.PHAR ---
PT IS RESIDENT AT [facility] 02/01/24
[2024-02-01 14:36] LABS: Alanine Aminotransferase 15 U/L (0-41); Albumin Level 2.6 g/dL (3.5-5.2); Alkaline Phosphatase 108 U/L (40-130); Anion Gap 14.2 (5-19); Aspartate Amino Transferase 23 U/L (0-40); Blood Urea Nitrogen 18 mg/dL (8-23); Carbon Dioxide 22 mmol/L (22-29); Chloride 108 mmol/L (98-107); Globulin 3.1 g/dL (1.3-4.6); Glucose 187 mg/dL (65-115); Osmolality Calculated 297 mOsm/kg (285-295); Potassium 4.2 mmol/L (3.5-5.1); Sodium 140 mmol/L (136-145); Total Bilirubin 0.5 mg/dL (0.15-1.2); Total Protein 5.7 g/dL (6.6-8.7)
[2024-02-01 14:48] LABS: Basophils # 0.1 10^3/uL (0.0-0.1); Basophils % 0.3 %; Eosinophils % 0.1 %; Hematocrit 26.6 % (37-53); Lymphocytes # 1.1 10^3/uL (0.8-4.8); Mean Corpuscular HGB Conc 31.6 g/dL (30-55); Mean Corpuscular Hemoglobin 33.9 pg (27-33); Mean Corpuscular Volume 107.3 fl (82-101); Mean Platelet Volume 9.7 fL (7.4-10.4); Monocytes % 5.8 %; Neutrophils # 15.55 10^3/uL (1.8-7.7); Neutrophils % 86.7 %; Nucleated Red Blood Cells % 0 %; Platelet Count 292 10^3/cmm (157-399); Red Blood Count 2.48 10^6/uL (3.85-5.65); White Blood Count 17.94 10^3/uL (3.29-11.43)
--- NOTE | 2024-02-01 14:49 | XR_ITS ---
WS: [id number] Exam: XR chest 1V portable [id number] Date/Time of Exam: 02/01/2024 2:53 PM Reason For Exam: elevated white count Comparison 01/16/2024. The lungs are fully expanded and clear. Normal cardiomediastinal silhouette. No pleural effusions. [place] structures are intact. Degenerative change of both shoulders. XR/XR chest 1V portable [id number] IMPRESSION: 1. No acute cardiopulmonary finding.
[2024-02-01 15:04] LABS: INR 1.61 (0.8-1.2); Partial Thromboplastin Time 33.7 SECONDS (23.9-36.7)
--- NOTE | 2024-02-01 15:23 | PC.NURSE ---
per verbal order from ly de guzman, cancel acyclovir. acyclovir placed in pharmacy return bin
[2024-02-01 15:33] LABS: Urine Appearance Cloudy (CLEAR); Urine Color Dark Yellow (Yellow); pH Urine 5 (5-7)
[2024-02-01 15:34] LABS: Add Urine Microscopic? YES; Bacteria Urine 1+ /hpf; Bilirubin Urine Neg (Negative); Blood Urine 3+ (Negative); Calcium Oxalate Crystals Urine 0-4 /hpf; Glucose Urine UA Norm (Normal); Ketones Urine 1+ (Negative); Leukocyte Esterase Urine Negative (Negative); Mucus Urine 3+ /hpf; Nitrate Urine Negative (Negative); Protein Urine Trace (Negative); Squamous Epithelial Cell Urine 0-4 /hpf (0-5); Urobilinogen Urine Norm (Negative); WBC Urine 0-4 /hpf (0-5)
--- NOTE | 2024-02-01 17:13 | PC.NURSE ---
waiting on medicaid ride for transport back to [place]. ETA TBD
--- NOTE | 2024-02-01 19:30 | PC.NURSE ---
PT ATTEMPTING TO GET OUT OF BED VIA THE END OF THE BED DUE TO SIDE RAILS BEING RAISED. PT WAS COVERED IN BLOOD. PT WAS ASSISTED BACK INTO BED AND CLEANED UP. CALL LIGHT WITHIN REACH AND EDUCATION PROVIDED ON USING IT. NEED FOR FURTHER EDUCATION.
== END 2024-02-02 00:05 | disposition home or self-care (01) ==
PROVIDERS: Emergency Provider Physician Assistant; PCP Family Medicine
DX: B01.9 Varicella without complication (principal); Z79.01 Long term (current) use of anticoagulants; Z87.891 Personal history of nicotine dependence
CPT/HCPCS: 51701; 71045; 80053; 81001; 85025; 85610; 85730; 99284

== ENCOUNTER 2024-02-02 22:03 | Emergency (ER) | payer MEDICARE, MEDICAID, SELFPAY ==
[2024-02-02 22:05] VITALS: BP 147/77; PULSE 73; RESP 18; TEMP 36.8; O2SAT 100; BMI 19.8
--- NOTE | 2024-02-02 22:09 | CTR_ITS ---
PROCEDURE INFORMATION: Exam: CT Head Without Contrast Exam date and time: 02/02/2024 10:20 PM Age: 88 years old Clinical indication: Injury or trauma; Fall; Other: Pain TECHNIQUE: Imaging protocol: Computed tomography of the head without contrast. Radiation optimization: All CT scans at this facility use at least one of these dose optimization techniques: automated exposure control; mA and/or kV adjustment per patient size (includes targeted exams where dose is matched to clinical indication); or iterative reconstruction. COMPARISON: CT head wo con* [id number] 01/16/2024 10:27 AM RADIATION DOSE METRICS: Total DLP (mGy-cm): 1008.7 FINDINGS: Brain: Moderate diffuse white matter disease likely reflecting chronic microvascular ischemic changes. Left basal ganglia chronic calcification appears benign. Cerebral ventricles: No ventriculomegaly. Paranasal sinuses: Visualized sinuses are unremarkable. No fluid levels. Mastoid air cells: Visualized mastoid air cells are well aerated. Bones: Unremarkable. No acute fracture. Soft tissues: Unremarkable. CT/CT head wo con* [id number] IMPRESSION: 1. Moderate diffuse white matter disease likely reflecting chronic microvascular ischemic changes. 2. Left basal ganglia chronic calcification appears benign.
--- NOTE | 2024-02-02 22:53 | ED_ITS ---
HPI - Fall General: Chief Complaint: Fall Stated Complaint: Fall Time Seen by Provider: 02/02/24 22:04 History of Present Illness: 88-year-old man who presents from the [facility] home after having had a fall. They report he was complaining of left hip pain. Here he says he does not have pain and refuses an x-ray. He does do a CT. However it is unknown whether he hit his head or not. Review of Systems Narrative: Constitutional symptoms: Negative except as documented in HPI. Skin symptoms: Negative except as documented in HPI. Eye symptoms: Negative except as documented in HPI. ENMT symptoms: Negative except as documented in HPI. Respiratory symptoms: Negative except as documented in HPI. Cardiovascular symptoms: Negative except as documented in HPI. Gastrointestinal symptoms: Negative except as documented in HPI. Genitourinary symptoms: Negative except as documented in HPI. Musculoskeletal symptoms: Negative except as documented in HPI. Neurologic symptoms: Negative except as documented in HPI. Psychiatric symptoms: Negative except as documented in HPI. Endocrine symptoms: Negative except as documented in HPI. PFSH ED PFSH: Medical History Flexion deformity, left knee Flexion deformity, right knee 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 Osteoarthritis Immunization counseling High risk medication use Seropositive rheumatoid arthritis of multiple sites Joint pain History of skin cancer in adulthood Surgical History History of cholecystectomy Family History Other Cancer Diabetes Hx of migraines Denies family history of Rheumatoid arthritis Lupus Lung disease Hypertension Stroke Social History Smoking and tobacco/nicotine status: former use of tobacco/nicotine Alcohol intake: former Physical Exam Narrative: EXAM NARRATIVE: General: Alert, no acute distress. Skin: warm and dry Head: Normocephalic, right side of his face has a large amount of excoriated tissue that is reported to be shingles Neck: Trachea midline Eye: Extraocular movements are intact. Ears, nose, mouth and throat: Oral mucosa moist Respiratory: Respirations are non-labored Musculoskeletal: Normal ROM, patient has no shortening or rotation of his left leg. With movement of his leg he says there is no pain in his hip. Neurological: Alert No focal neurological deficit observed. Psychiatric: Cooperative, appropriate mood & affect. Course Vital Signs: Vital signs: Vital Signs Temperature 98.2 F 02/02/24 22:05 Pulse Rate 73 02/02/24 22:05 Respiratory Rate 18 02/02/24 22:05 Blood Pressure 147/77 02/02/24 22:05 Pulse Oximetry 100 02/02/24 22:05 Oxygen Delivery Me thod Room Air 02/02/24 22:05 MDM - Fall Medical Decision Making CT head: No acute intracranial process. no intracranial hemorrhage, no evidence of infarct. no evidence of acute fracture.This was reviewed and interpreted by myself the ER physician. Assessment and plan: Fall - Discharged home - Discussed plan with patient. Answered any questions. - Evaluation and treatment of this problem were appropriate in the emergency setting. XR interpretation done by ED provider, pending radiology final review Discharge Plan Discharge Patient Disposition: Home Clinical Impression: Fall Qualifiers: Encounter type: initial encounter Qualified Code(s): W19.XXXA - Unspecified fall, initial encounter Condition: Stable Prescriptions: No Action Glucos Chond Cplx Advanced 750 mg-100 mg- 125 mg-1.65 mg tablet 3 tab PO DAILY cholecalciferol (vitamin D3) 125 mcg (5,000 unit) capsule 125 mcg PO DAILY ascorbic acid (vitamin C) 1,000 mg tablet 1 gm PO DAILY folic acid 1 mg tablet 1 mg PO DAILY Qty: 90 0RF gabapentin 300 mg capsule 300 mg PO BEDTIME famotidine [Pepcid AC] 10 mg Tablet 10 mg PO DAILY loratadine 10 mg Tablet 10 mg PO DAILY tamsulosin 0.4 mg Capsule 0.4 mg PO DAILY Qty: 30 0RF docusate sodium 100 mg Capsule 100 mg PO BID Qty: 60 0RF doxycycline monohydrate 100 mg capsule 100 mg PO BID Qty: 14 0RF valacyclovir 1 gram tablet 1,000 mg PO TID Qty: 30 0RF tramadol 50 mg Tablet 50 mg PO Q4H PRN (Reason: Mild Pain) Qty: 20 0RF oxycodone-acetaminophen 5-325 mg Tablet 1 tab PO Q4H PRN (Reason: Moderate Pain) Qty: 20 0RF Eliquis 5 mg Tablet 2.5 mg PO BID@0900,2100 Qty: 30 0RF pantoprazole [Protonix] 40 mg tablet,delayed release (DR/EC) 40 mg PO BID Qty: 60 0RF acetaminophen 325 mg Tablet 650 mg PO Q6H PRN (Reason: PAIN OR INCREASED TEMP) Milk of Magnesia 400 mg/5 mL Suspension See Rx Instructions .ROUTE .COMPLEX PRN (Reason: Constipation) Rx Instructions: TAKE 30 ML BY MOUTH EVERY 72 HOURS NEEDED IF NO BM IN 3 DAYS. Dulcolax (bisacodyl) 10 mg Suppository See Rx Instructions .ROUTE .COMPLEX PRN (Reason: Constipation) Rx Instructions: ADMINISTER 1 SUPPOSITORY RECTALLY ONCE DAILY NEEDED. GIVE RECTALLY IF CAN'T TAKE BY MOUTH , IF NO RESULTS FROM MILK OF MAGNESIA. Fleet Enema 19-7 gram/118 mL Enema 118 ml [place] DAILY PRN (Reason: Constipation) Rx Instructions: IF NO RESULTS FROM MILK OF MAGNESIA AND BISACODYL. bisacodyl 5 mg Tablet 10 mg PO DAILY PRN (Reason: Constipation) Rx Instructions: IF NO RESULTS FROM MILK OF MAGNESIA Calmoseptine 0.44-20.6 % ointment See Rx Instructions .ROUTE .COMPLEX Rx Instructions: APPLY TO INTACT SKIN ONLY, EVERY SHIFT FOR PREVENTION. MediHoney (honey) 80 % Gel See Rx Instructions .ROUTE .COMPLEX Rx Instructions: APPLY TO ENTIRE RIGHT SIDE OF FACE THAT IS SCABBED AND ALL OTHER SCABBED AREAS ON BODY EVERY 4 HOURS AND NEEDED. amoxicillin-pot clavulanate 875-125 mg tablet 1 tab PO BID Discharge Orders: Discharge ED (Routine); Ordered 02/02/24 Ordered By: Jessica Siomn Referrals: Sage Black MD [Primary Care Provider] - 4-7 days Discharge Diet: Usual diet Discharge Activity: Increase activity as tolerated Patient Instructions: Fall Prevention for Older Adults (ED) Activity Restrictions/Additional Instructions: Thank you for choosing [facility] for your healthcare needs today. Please realize this is an emergency room and that we are providing you with a medical screening exam and this may not be complete and all inclusive of all the testing and or work up that you may need to determine your ailment or severity of your illness. You have been screened and evaluated and felt safe for discharge. Health conditions do change or evolve sometimes and as such it is important that you follow up with your Primary Doctor to be re checked, 3-5 days is a general good time frame for follow up. You are always welcome to return to the ED for re assessment if your symptoms are worsening or you have new concerns Coding Level of Care Code ED Biz[employer] Software Developer for Adam Lamas
--- NOTE | 2024-02-03 00:15 | PC.NURSE ---
FAMILY MADE AWARE OF DELAY IN TRANSPORT BACK TO [facility]
--- NOTE | 2024-02-03 00:23 | PC.NURSE ---
PT CONTINUALLY REMOVES VS EQUIPMENT EACH TIME IT IS REAPPLIED.
--- NOTE | 2024-02-03 00:24 | PC.NURSE ---
Pt is unable to return to the skilled nursing d/t [facility] ems crews being exhausted.
== END 2024-02-03 02:38 | disposition home or self-care (01) ==
PROVIDERS: Emergency Provider Emergency Medicine; PCP Family Medicine
DX: M25.552 Pain in left hip (principal); Z79.01 Long term (current) use of anticoagulants; Z87.891 Personal history of nicotine dependence
CPT/HCPCS: 70450; 99284

== ENCOUNTER → 2024-02-03 12:55 | Outpatient (BNVA) | payer MEDICARE, MEDICAID, SELFPAY | PROVIDERS: PCP Family Medicine; Visit Provider Student in an Organized Health Care Education/Training Program | DX: S72.141D Displaced intertrochanteric fracture of right femur, subsequent encounter for closed fracture with routine healing; X58.XXXD Exposure to other specified factors, subsequent encounter; B01.9 Varicella without complication | CPT/HCPCS: 73502; 99024 ==

== ENCOUNTER → 2024-02-09 13:26 | Outpatient (BNVA) | payer MEDICARE, MEDICAID, SELFPAY | PROVIDERS: PCP Family Medicine; Visit Provider Dermatology | DX: B02.7 Disseminated zoster (principal) | CPT/HCPCS: 99214 ==

== ENCOUNTER 2024-02-13 07:27 | Oncology outpatient (recurring) (ONCR) | payer MEDICARE, MEDICAID, SELFPAY ==
[2024-02-13 11:40] LABS: Hematocrit 29.4 % (37-53); Mean Corpuscular Hemoglobin 35.5 pg (27-33); Mean Corpuscular Volume 110.9 fl (82-101); Platelet Count 268 10^3/cmm (157-399); Red Blood Count 2.65 10^6/uL (3.85-5.65); White Blood Count 10.38 10^3/uL (3.29-11.43)
--- NOTE | 2024-02-13 12:24 | PC.NURSE ---
Patient came to receive 2 units of blood with a Hgb of 6.40 from [facility] assisted. This nurse had done a type and cross per orders from Dr. Black. Blood drawn and Hgb was 9.40. Patient did not need blood transfusion and IV cath removed. Patient transfered to own wheelchair and discharged back to the [facility] Long-Term. Inker for [facility] wanted a copy of the lab results to give to his nurse.
== END 2024-03-14 23:59 | disposition home or self-care (01) ==
PROVIDERS: PCP Family Medicine; Visit Provider Family Medicine
DX: D64.9 Anemia, unspecified (principal)
CPT/HCPCS: 36415; 85027; 86850; 86900; 86920

== ENCOUNTER 2024-02-13 16:56 | Emergency (ER) | payer MEDICARE, MEDICAID, SELFPAY ==
[2024-02-13 16:59] VITALS: BP 104/62; PULSE 133; RESP 18; TEMP 36.7; O2SAT 94
--- NOTE | 2024-02-13 17:05 | ECG_ITS ---
[facility] Test Date: 2024-02-13 Pat Name: Kaleb Hu Department: Room: Gender: Male Sorter/Assay Tech: : [id number] Requested By: Erick Saavedra Order Number: [id number] C[place] MD: Joey Chavez M.D. Measurements Intervals [place] Rate: 87 P: 69 MT: 129 QRS: 41 QRSD: 102 T: 75 QT: 365 QTc: 441 Interpretive Statements SINUS RHYTHM WITH OCCASIONAL VENTRICULAR PREMATURE COMPLEXES WITH OCCASIONAL SUPRAVENTRICULAR PREMATURE COMPLEXES SEPTAL MYOCARDIAL INFARCTION , PROBABLY OLD [40+ ms Q WAVE IN V1/V2] Compared to ECG 01/16/2024 11:26:15 Ventricular premature complex(es) now present Myocardial infarct finding now present Sinus tachycardia no longer present Electronically Signed On 02-14-2024 21:52:36 CDT by Joey Chavez M.D. [email or web address]
--- NOTE | 2024-02-13 17:05 | XRR_ITS ---
PROCEDURE INFORMATION: Exam: XR Chest Exam date and time: 02/13/2024 5:21 PM Age: 88 years old Clinical indication: Dyspnea; Additional info: Dyspnea/cough TECHNIQUE: Imaging protocol: Radiologic exam of the chest. Views: 1 view. COMPARISON: CR XR chest 1V portable [id number] 02/01/2024 2:55 PM FINDINGS: Lungs: Mild reticular interstitial changes in bilateral lung bases. No consolidation. Pleural spaces: Unremarkable. No pleural effusion. No pneumothorax. Heart/Mediastinum: Ectatic aortic arch with stable appearance of the superior mediastinum compared to 02/02/2024. No cardiomegaly. Vasculature: [id number] atherosclerotic calcification of the bilateral carotid bifurcations. Bones/joints: Unremarkable. XR/XR chest 1V portable [id number] IMPRESSION: Subtle bibasilar reticular changes are nonspecific. No advanced fibrotic changes. No focal consolidation. Ectatic aortic arch.
--- NOTE | 2024-02-13 17:07 | ED_ITS ---
Documented by User: Erick Rodriguez DO 02/14/24 07:12 HPI - General Adult 2 General: Chief complaint: Weakness Stated complaint: general weakness Time Seen by Provider: 02/13/24 17:04 Source: patient Mode of arrival: EMS History of Present Illness: 88-year-old male presents emergency room complaining of generalized weakness. 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 He is more awake and alert in the emergency room when he first arrives. He is noted initially to be in A-fib with RVR with a rate in the 130s but shortly after I examined him his rhythm returned to normal sinus rhythm with occasional PVCs with a rate of 89. He has no specific complaints or problems at this time. No reports of fever sweats or chills. He is on apixaban. Associated symptoms: Reports confusion, rash (Resolving varicella rash) and palpitations; Deny chest pain, cough, diaphoresis, decreased appetite, dyspnea, fevers/chills, headache(s), malaise, nausea, seizures, short of breath, syncope, vomiting or weakness Review of Systems 2 Const: Denies: fever(s), chills, malaise or diaphoresis Card: Reports: palpitations and irregular heart rhythm; Denies: chest pain or syncope Resp: Denies: dyspnea GI: Denies: abdominal pain, nausea or vomiting : Denies: dysuria, urinary frequency or urinary urgency Musc: Denies: neck pain or back pain Skin/Breast: Reports: rash (Resolving varicella rash) and skin tenderness Neuro: Reports: confusion; Denies: headache(s) PFSH ED 2 PFSH: Medical History Flexion deformity, left knee Flexion deformity, right knee 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 Osteoarthritis Immunization counseling High risk medication use Seropositive rheumatoid arthritis of multiple sites Joint pain History of skin cancer in adulthood Surgical History History of cholecystectomy Family History Other Cancer Diabetes Hx of migraines Denies family history of Rheumatoid arthritis Lupus Lung disease Hypertension Stroke Social History Smoking and tobacco/nicotine status: former use of tobacco/nicotine Alcohol intake: former Physical Exam 2 Const: GENERAL APPEARANCE: cooperative and comfortable O RIENTATION/CONSCIOUSNESS: Yes awake, Yes oriented to person, Yes oriented to place and Yes oriented to time HENMT: COMMON NORMALS: normocephalic, atraumatic and hearing grossly normal bilaterally HEAD & SCALP: normocephalic and atraumatic Resp: COMMON NORMALS: normal respiratory effort, No retractions, No use of accessory muscles and clear to auscultation bilaterally AUSCULTATION: clear to auscultation bilaterally Cardio: COMMON NORMALS: regular rate, regular rhythm and No murmurs present (Cardio) RATE: regular rate RHYTHM: regular rhythm GI: COMMON NORMALS: Soft to palpation and No hepatosplenomegaly present A USCULTATION: Yes normoactive bowel sounds PALPATION: Yes Soft to palpation, No Tenderness to palpation present (GI), No Guarding due to palpation present (GI) and Yes No hepatosplenomegaly present Extremity: COMMON NORMALS: normal to inspection, capillary refill normal, no clubbing, cyanosis or edema, no calf tenderness and no pedal edema Neuro: SENSORIUM/ORIENTATION: Yes oriented to person, Yes oriented to place and Yes oriented to time Skin: OTHER: Disseminated zoster resolving on the face and extremities on the right side. Course 2 Vital Signs: Vital signs: Vital Signs Temperature 98.1 F 02/13/24 16:59 Pulse Rate 94 02/13/24 17:08 Respiratory Rate 15 02/13/24 17:08 Blood Pressure 104/62 02/13/24 17:08 Pulse Oximetry 94 02/13/24 17:08 Oxygen Delivery Me thod Room Air 02/13/24 17:08 [facility] - General Adult Medical Decision Making Presented in A-fib with RVR before can be treated he spontaneously converted. Labs pending care signed out to Dr. Mcgowan at change of shift. See final notes for diagnosis and disposition. Patient presented here with generalized weakness he was in A-fib with RVR. Patient here states he feels much improved he has been converted he is refusing IV states he just [facility]. He does not want any further treatment here he has been stable and feel he stable for discharge back he is in his right mind and able to make decisions Lab Data 02/13/24 17:16 02/13/24 17:16 Radiology Impressions Chest X-Ray 02/13/24 17:05 IMPRESSION: Subtle bibasilar reticular changes are nonspecific. No advanced fibrotic changes. No focal consolidation. Ectatic aortic arch. Head CT 02/13/24 18:52 IMPRESSION: 1. No acute intracranial abnormality or interval change from 02/02/2024. Further evaluation with MRI if there is persistent suspicion for early stroke or other significant occult abnormalities. 2. Moderate cerebral parenchymal atrophy and chronic microvascular cerebral parenchymal change . Laboratory Results WBC 14.57 10^3/uL (3.29-11.43) H 02/13/24 17:16 RBC 2.67 10^6/uL (3.85-5.65) L 02/13/24 17:16 Hgb 9.60 g/dL (11.27-16.99) L 02/13/24 17:16 Hct 29.6 % (37-53) L 02/13/24 17:16 MCV 110.9 fl (82-101) H 02/13/24 17:16 MCH 36.0 pg (27-33) H 02/13/24 17:16 MCHC 32.4 g/dL (30-55) 02/13/24 17:16 RDW 22.0 % (12.1-15.1) H 02/13/24 17:16 Plt Count 281 10^3/cmm (157-399) 02/13/24 17:16 MPV 9.7 fL (7.4-10.4) 02/13/24 17:16 Neut % (Auto) 88.2 % 02/13/24 17:16 Lymph % (Auto) 5.0 % 02/13/24 17:16 [place] % (Auto) 5.3 % 02/13/24 17:16 Eos % (Auto) 0.2 % 02/13/24 17:16 Baso % (Auto) 0.3 % 02/13/24 17:16 Neut # (Auto) 12.85 10^3/uL (1.8-7.7) H 02/13/24 17:16 Lymph # (Auto) 0.7 10^3/uL (0.8-4.8) L 02/13/24 17:16 [place] # (Auto) 0.8 10^3/uL (0.2-0.9) 02/13/24 17:16 Eos # (Auto) 0.0 10^3/uL (0.0-0.8) 02/13/24 17:16 Baso # (Auto) 0.1 10^3/uL (0.0-0.1) 02/13/24 17:16 Nucleated RBC % (auto) 0 % 02/13/24 17:16 Nucleated RBCs # 0.0 /100WBC 02/13/24 17:16 Sodium 136 mmol/L (136-145) 02/13/24 17:16 Potassium 3.7 mmol/L (3.5-5.1) 02/13/24 17:16 Chloride 102 mmol/L (98-107) 02/13/24 17:16 Carbon Dioxide 20 mmol/L (22-29) L 02/13/24 17:16 Anion Gap 17.7 (5-19) 02/13/24 17:16 BUN 15 mg/dL (8-23) 02/13/24 17:16 Creatinine 1.1 mg/dL (0.7-1.2) 02/13/24 17:16 GFR Calculation Not Reportable 02/13/24 17:16 Glucose 157 mg/dL (65-115) H 02/13/24 17:16 Calculated Osmolality 286 mOsm/kg (285-295) 02/13/24 17:16 Lactic Acid 3.2 mmol/L (0.5-2.2) H 02/13/24 17:16 Calcium 8.3 mg/dL (8.5-10.5) L 02/13/24 17:16 Magnesium 1.8 mg/dL (1.7-2.3) 02/13/24 17:16 Total Bilirubin 0.9 mg/dL (0.15-1.2) 02/13/24 17:16 AST 20 U/L (0-40) 02/13/24 17:16 ALT 10 U/L (0-41) 02/13/24 17:16 Alkaline Phosphatase 184 U/L (40-130) H 02/13/24 17:16 Troponin T Baseline 75 ng/L (0-15) H 02/13/24 17:16 Troponin T 120 Minute 67.84 ng/L (0-15) H 02/13/24 19:16 Delta Troponin T -7.16 ABS# (0-10) L 02/13/24 19:16 Total Protein 6.4 g/dL (6.6-8.7) L 02/13/24 17:16 Albumin 2.9 g/dL (3.5-5.2) L 02/13/24 17:16 Globulin 3.5 g/dL (1.3-4.6) 02/13/24 17:16 Discharge Plan Discharge Patient Disposition: Home Clinical Impression: Weakness, Atrial fibrillation Condition: Stable Prescriptions: No Action Glucos Chond Cplx Advanced 750 mg-100 mg- 125 mg-1.65 mg tablet 3 tab PO DAILY cholecalciferol (vitamin D3) 125 mcg (5,000 unit) capsule 125 mcg PO DAILY ascorbic acid (vitamin C) 1,000 mg tablet 1 gm PO DAILY alprazolam 0.5 mg tablet 0.5 mg PO DAILY PRN folic acid 1 mg tablet 1 mg PO DAILY Qty: 90 0RF gabapentin 300 mg capsule 300 mg PO BEDTIME famotidine [Pepcid AC] 10 mg Tablet 10 mg PO DAILY loratadine 10 mg Tablet 10 mg PO DAILY tamsulosin 0.4 mg Capsule 0.4 mg PO DAILY Qty: 30 0RF docusate sodium 100 mg Capsule 100 mg PO BID Qty: 60 0RF doxycycline monohydrate 100 mg capsule 100 mg PO BID Qty: 14 0RF valacyclovir 1 gram tablet 1,000 mg PO TID Qty: 30 0RF tramadol 50 mg Tablet 50 mg PO Q4H PRN (Reason: Mild Pain) Qty: 20 0RF oxycodone-acetaminophen 5-325 mg Tablet 1 tab PO Q4H PRN (Reason: Moderate Pain) Qty: 20 0RF Eliquis 5 mg Tablet 2.5 mg PO BID@0900,2100 Qty: 30 0RF pantoprazole [Protonix] 40 mg tablet,delayed release (DR/EC) 40 mg PO BID Qty: 60 0RF acetaminophen 325 mg Tablet 650 mg PO Q6H PRN (Reason: PAIN OR INCREASED TEMP) Milk of Magnesia 400 mg/5 mL Suspension See Rx Instructions .ROUTE .COMPLEX PRN (Reason: Constipation) Rx Instructions: TAKE 30 ML BY MOUTH EVERY 72 HOURS NEEDED IF NO BM IN 3 DAYS. Dulcolax (bisacodyl) 10 mg Suppository See Rx Instructions .ROUTE .COMPLEX PRN (Reason: Constipation) Rx Instructions: ADMINISTER 1 SUPPOSITORY RECTALLY ONCE DAILY NEEDED. GIVE RECTALLY IF CAN'T TAKE BY MOUTH , IF NO RESULTS FROM MILK OF MAGNESIA. Fleet Enema 19-7 gram/118 mL Enema 118 ml NH DAILY PRN (Reason: Constipation) Rx Instructions: IF NO RESULTS FROM MILK OF MAGNESIA AND BISACODYL. bisacodyl 5 mg Tablet 10 mg PO DAILY PRN (Reason: Constipation) Rx Instructions: IF NO RESULTS FROM MILK OF MAGNESIA Calmoseptine 0.44-20.6 % ointment See Rx Instructions .ROUTE .COMPLEX Rx Instructions: APPLY TO INTACT SKIN ONLY, EVERY SHIFT FOR PREVENTION. MediHoney (honey) 80 % Gel See Rx Instructions .ROUTE .COMPLEX Rx Instructions: APPLY TO ENTIRE RIGHT SIDE OF FACE THAT IS SCABBED AND ALL OTHER SCABBED AREAS ON BODY EVERY 4 HOURS AND NEEDED. amoxicillin-pot clavulanate 875-125 mg tablet 1 tab PO BID Discharge Orders: Discharge ED (Routine); Ordered 02/13/24 Ordered By: Reji Mcgowan Referrals: Sage Black MD [Primary Care Provider] - 4-7 days Discharge Diet: Advance as tolerated Discharge Activity: Resume usual activity Patient Instructions: Weakness (ED) Coding Level of Care Code ED Book Mender for Chg Fwd Documented by User: Reji Mcgowan MD 02/13/24 20:51 HPI - General Adult 2 General: Chief complaint: Weakness Stated complaint: general weakness Time Seen by Provider: 02/13/24 17:04 PFSH ED 2 PFSH: Medical History Flexion deformity, left knee Flexion deformity, right knee 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 Osteoarthritis Immunization counseling High risk medication use Seropositive rheumatoid arthritis of multiple sites Joint pain History of skin cancer in adulthood Surgical History History of cholecystectomy Family History Other Cancer Diabetes Hx of migraines Denies family history of Rheumatoid arthritis Lupus Lung disease Hypertension Stroke Social History Smoking and tobacco/nicotine status: former use of tobacco/nicotine Alcohol intake: former Course 2 Vital Signs: Vital signs: Vital Signs Temperature 98.1 F 02/13/24 16:59 Pulse Rate 94 02/13/24 17:08 Respiratory Rate 15 02/13/24 17:08 Blood Pressure 104/62 02/13/24 17:08 Pulse Oximetry 94 02/13/24 17:08 Oxygen Delivery Me thod Room Air 02/13/24 17:08 MDM - General Adult Medical Decision Making Patient presented here with generalized weakness he was in A-fib with RVR. Patient here states he feels much improved he has been converted he is refusing IV states he [facility]. He does not want any further treatment here he has been stable and feel he stable for discharge back he is in his right mind and able to make decisions Lab Data 02/13/24 17:16 02/13/24 17:16 Radiology Impressions Chest X-Ray 02/13/24 17:05 IMPRESSION: Subtle bibasilar reticular changes are nonspecific. No advanced fibrotic changes. No focal consolidation. Ectatic aortic arch. Head CT 02/13/24 18:52 IMPRESSION: 1. No acute intracranial abnormality or interval change from 02/02/2024. Further evaluation with MRI if there is persistent suspicion for early stroke or other significant occult abnormalities. 2. Moderate cerebral parenchymal atrophy and chronic microvascular cerebral parenchymal change . Laboratory Results WBC 14.57 10^3/uL (3.29-11.43) H 02/13/24 17:16 RBC 2.67 10^6/uL (3.85-5.65) L 02/13/24 17:16 Hgb 9.60 g/dL (11.27-16.99) L 02/13/24 17:16 Hct 29.6 % (37-53) L 02/13/24 17:16 MCV 110.9 fl (82-101) H 02/13/24 17:16 MCH 36.0 pg (27-33) H 02/13/24 17:16 MCHC 32.4 g/dL (30-55) 02/13/24 17:16 RDW 22.0 % (12.1-15.1) H 02/13/24 17:16 Plt Count 281 10^3/cmm (157-399) 02/13/24 17:16 MPV 9.7 fL (7.4-10.4) 02/13/24 17:16 Neut % (Auto) 88.2 % 02/13/24 17:16 Lymph % (Auto) 5.0 % 02/13/24 17:16 [place] % (Auto) 5.3 % 02/13/24 17:16 Eos % (Auto) 0.2 % 02/13/24 17:16 Baso % (Auto) 0.3 % 02/13/24 17:16 Neut # (Auto) 12.85 10^3/uL (1.8-7.7) H 02/13/24 17:16 Lymph # (Auto) 0.7 10^3/uL (0.8-4.8) L 02/13/24 17:16 [place] # (Auto) 0.8 10^3/uL (0.2-0.9) 02/13/24 17:16 Eos # (Auto) 0.0 10^3/uL (0.0-0.8) 02/13/24 17:16 Baso # (Auto) 0.1 10^3/uL (0.0-0.1) 02/13/24 17:16 Nucleated RBC % (auto) 0 % 02/13/24 17:16 Nucleated RBCs # 0.0 /100WBC 02/13/24 17:16 Sodium 136 mmol/L (136-145) 02/13/24 17:16 Potassium 3.7 mmol/L (3.5-5.1) 02/13/24 17:16 Chloride 102 mmol/L (98-107) 02/13/24 17:16 Carbon Dioxide 20 mmol/L (22-29) L 02/13/24 17:16 Anion Gap 17.7 (5-19) 02/13/24 17:16 BUN 15 mg/dL (8-23) 02/13/24 17:16 Creatinine 1.1 mg/dL (0.7-1.2) 02/13/24 17:16 GFR Calculation Not Reportable 02/13/24 17:16 Glucose 157 mg/dL (65-115) H 02/13/24 17:16 Calculated Osmolality 286 mOsm/kg (285-295) 02/13/24 17:16 Lactic Acid 3.2 mmol/L (0.5-2.2) H 02/13/24 17:16 Calcium 8.3 mg/dL (8.5-10.5) L 02/13/24 17:16 Magnesium 1.8 mg/dL (1.7-2.3) 02/13/24 17:16 Total Bilirubin 0.9 mg/dL (0.15-1.2) 02/13/24 17:16 AST 20 U/L (0-40) 02/13/24 17:16 ALT 10 U/L (0-41) 02/13/24 17:16 Alkaline Phosphatase 184 U/L (40-130) H 02/13/24 17:16 Troponin T Baseline 75 ng/L (0-15) H 02/13/24 17:16 Troponin T 120 Minute 67.84 ng/L (0-15) H 02/13/24 19:16 Delta Troponin T -7.16 ABS# (0-10) L 02/13/24 19:16 Total Protein 6.4 g/dL (6.6-8.7) L 02/13/24 17:16 Albumin 2.9 g/dL (3.5-5.2) L 02/13/24 17:16 Globulin 3.5 g/dL (1.3-4.6) 02/13/24 17:16 All radiology interpretation(s) finalized by discharge Discharge Plan Discharge Patient Disposition: Home Clinical Impression: Weakness, Atrial fibrillation Condition: Stable Prescriptions: No Action Glucos Chond Cplx Advanced 750 mg-100 mg- 125 mg-1.65 mg tablet 3 tab PO DAILY cholecalciferol (vitamin D3) 125 mcg (5,000 unit) capsule 125 mcg PO DAILY ascorbic acid (vitamin C) 1,000 mg tablet 1 gm PO DAILY alprazolam 0.5 mg tablet 0.5 mg PO DAILY PRN folic acid 1 mg tablet 1 mg PO DAILY Qty: 90 0RF gabapentin 300 mg capsule 300 mg PO BEDTIME famotidine [Pepcid AC] 10 mg Tablet 10 mg PO DAILY loratadine 10 mg Tablet 10 mg PO DAILY tamsulosin 0.4 mg Capsule 0.4 mg PO DAILY Qty: 30 0RF docusate sodium 100 mg Capsule 100 mg PO BID Qty: 60 0RF doxycycline monohydrate 100 mg capsule 100 mg PO BID Qty: 14 0RF valacyclovir 1 gram tablet 1,000 mg PO TID Qty: 30 0RF tramadol 50 mg Tablet 50 mg PO Q4H PRN (Reason: Mild Pain) Qty: 20 0RF oxycodone-acetaminophen 5-325 mg Tablet 1 tab PO Q4H PRN (Reason: Moderate Pain) Qty: 20 0RF Eliquis 5 mg Tablet 2.5 mg PO BID@0900,2100 Qty: 30 0RF pantoprazole [Protonix] 40 mg tablet,delayed release (DR/EC) 40 mg PO BID Qty: 60 0RF acetaminophen 325 mg Tablet 650 mg PO Q6H PRN (Reason: PAIN OR INCREASED TEMP) Milk of Magnesia 400 mg/5 mL Suspension See Rx Instructions .ROUTE .COMPLEX PRN (Reason: Constipation) Rx Instructions: TAKE 30 ML BY MOUTH EVERY 72 HOURS NEEDED IF NO BM IN 3 DAYS. Dulcolax (bisacodyl) 10 mg Suppository See Rx Instructions .ROUTE .COMPLEX PRN (Reason: Constipation) Rx Instructions: ADMINISTER 1 SUPPOSITORY RECTALLY ONCE DAILY NEEDED. GIVE RECTALLY IF CAN'T TAKE BY MOUTH , IF NO RESULTS FROM MILK OF MAGNESIA. Fleet Enema 19-7 gram/118 mL Enema 118 ml NH DAILY PRN (Reason: Constipation) Rx Instructions: IF NO RESULTS FROM MILK OF MAGNESIA AND BISACODYL. bisacodyl 5 mg Tablet 10 mg PO DAILY PRN (Reason: Constipation) Rx Instructions: IF NO RESULTS FROM MILK OF MAGNESIA Calmoseptine 0.44-20.6 % ointment See Rx Instructions .ROUTE .COMPLEX Rx Instructions: APPLY TO INTACT SKIN ONLY, EVERY SHIFT FOR PREVENTION. MediHoney (honey) 80 % Gel See Rx Instructions .ROUTE .COMPLEX Rx Instructions: APPLY TO ENTIRE RIGHT SIDE OF FACE THAT IS SCABBED AND ALL OTHER SCABBED AREAS ON BODY EVERY 4 HOURS AND NEEDED. amoxicillin-pot clavulanate 875-125 mg tablet 1 tab PO BID Discharge Orders: Discharge ED (Routine); Ordered 02/13/24 Ordered By: Reji Mcgowan Referrals: Sage Black MD [Primary Care Provider] - 4-7 days Discharge Diet: Advance as tolerated Discharge Activity: Resume usual activity Patient Instructions: Weakness (ED) Coding Level of Care Code ED Book Mender for Adam Lamas
[2024-02-13 17:08] VITALS: BP 104/62; PULSE 94; RESP 15; O2SAT 94
[2024-02-13] MEDS: sodium chloride 0.9% 1,000 ML 999 ML IV (17:27)
[2024-02-13 17:43] LABS: Lactic Sepsis W/Reflex 3.2 mmol/L (0.5-2.2)
[2024-02-13 18:03] LABS: Basophils # 0.1 10^3/uL (0.0-0.1); Basophils % 0.3 %; Eosinophils % 0.2 %; Hematocrit 29.6 % (37-53); Lymphocytes # 0.7 10^3/uL (0.8-4.8); Mean Corpuscular HGB Conc 32.4 g/dL (30-55); Mean Corpuscular Volume 110.9 fl (82-101); Mean Platelet Volume 9.7 fL (7.4-10.4); Monocytes # 0.8 10^3/uL (0.2-0.9); Monocytes % 5.3 %; Neutrophils # 12.85 10^3/uL (1.8-7.7); Neutrophils % 88.2 %; Nucleated Red Blood Cells % 0 %; Platelet Count 281 10^3/cmm (157-399); Red Blood Count 2.67 10^6/uL (3.85-5.65); White Blood Count 14.57 10^3/uL (3.29-11.43)
[2024-02-13 18:14] LABS: Magnesium 1.8 mg/dL (1.7-2.3)
[2024-02-13 18:15] LABS: Alanine Aminotransferase 10 U/L (0-41); Albumin Level 2.9 g/dL (3.5-5.2); Alkaline Phosphatase 184 U/L (40-130); Anion Gap 17.7 (5-19); Aspartate Amino Transferase 20 U/L (0-40); Blood Urea Nitrogen 15 mg/dL (8-23); Calcium 8.3 mg/dL (8.5-10.5); Carbon Dioxide 20 mmol/L (22-29); Chloride 102 mmol/L (98-107); Creatinine Clr Calc Pharmacy 42.0743; Globulin 3.5 g/dL (1.3-4.6); Glucose 157 mg/dL (65-115); Osmolality Calculated 286 mOsm/kg (285-295); Potassium 3.7 mmol/L (3.5-5.1); Sodium 136 mmol/L (136-145); Total Bilirubin 0.9 mg/dL (0.15-1.2); Total Protein 6.4 g/dL (6.6-8.7)
[2024-02-13 18:33] LABS: Troponin(5th) Baseline 75 ng/L (0-15)
--- NOTE | 2024-02-13 18:52 | CTR_ITS ---
PROCEDURE INFORMATION: Exam: CT Head Without Contrast Exam date and time: 02/13/2024 7:47 PM Age: 88 years old Clinical indication: Altered mental status/memory loss; Additional info: AMS TECHNIQUE: Imaging protocol: Computed tomography of the head without contrast. Radiation optimization: All CT scans at this facility use at least one of these dose optimization techniques: automated exposure control; mA and/or kV adjustment per patient size (includes targeted exams where dose is matched to clinical indication); or iterative reconstruction. COMPARISON: CT head wo con* [id number] 02/02/2024 10:20 PM RADIATION DOSE METRICS: Total DLP (mGy-cm): 1025.15 FINDINGS: Brain: Moderate chronic microvascular cerebral parenchymal change and cerebral parenchymal atrophy. Moderate atherosclerotic calcification of the left greater than right intracranial vertebral arteries and clinoid and cavernous carotid artery segments.. No hemorrhage. Unremarkable white matter. No mass effect. Cerebral ventricles: No ventriculomegaly. Paranasal sinuses: Visualized sinuses are unremarkable. No fluid levels. Mastoid air cells: Visualized mastoid air cells are well aerated. Bones: Unremarkable. No acute fracture. Soft tissues: Unremarkable. CT/CT head wo con* [id number] IMPRESSION: 1. No acute intracranial abnormality or interval change from 02/02/2024. Further evaluation with MRI if there is persistent suspicion for early stroke or other significant occult abnormalities. 2. Moderate cerebral parenchymal atrophy and chronic microvascular cerebral parenchymal change .
--- NOTE | 2024-02-13 19:05 | ECG_ITS ---
[facility] Test Date: 2024-02-13 Pat Name: Kaleb Hu Department: Room: Gender: Male Ux Lead: : 1935 Requested By: Erick Saavedra Order Number: [id number] Cintia MD: Joey Chavez M.D. Measurements Intervals [place] Rate: 135 P: 0 OK: 0 QRS: 47 QRSD: 98 T: 80 QT: 306 QTc: 459 Interpretive Statements ATRIAL FIBRILLATION WITH RAPID VENTRICULAR RESPONSE SEPTAL MYOCARDIAL INFARCTION , OF INDETERMINATE AGE [40+ ms Q WAVE IN V1/V2] Compared to ECG 01/16/2024 11:26:15 Myocardial infarct finding now present Sinus tachycardia no longer present Electronically Signed On 02-14-2024 22:07:30 CDT by Joey Chavez M.D. [id number] abundio
[2024-02-13 19:08] LABS: Reflex Lactate Order REFLEX LACTIC ORDERD
[2024-02-13 19:52] LABS: Troponin 5 2HR 67.84 ng/L (0-15)
[2024-02-13 20:00] LABS: Troponin 5 2HR Delta -7.16 ABS# (0-10)
--- NOTE | 2024-02-13 20:45 | PC.NURSE ---
Pt refused IV fluids, nurse re-entered room and pt had pulled his IV out on his own, nurse requested urine sample and pt declined to give urine. Pt stated he wanted to go home. Pt is alert and oriented and declining further treatment, provider ce
== END 2024-02-13 21:14 | disposition home or self-care (01) ==
PROVIDERS: Family Medicine; Emergency Provider Emergency Medicine; PCP Family Medicine
DX: R53.1 Weakness (principal); I48.91 Unspecified atrial fibrillation; Z79.01 Long term (current) use of anticoagulants; Z87.891 Personal history of nicotine dependence
CPT/HCPCS: 36415; 70450; 71045; 80053; 83605; 83735; 84484; 85025; 87040; 93005; 96360; 96361; 99285; J7030

== ENCOUNTER → 2024-02-28 15:34 | Outpatient (BNVA) | payer MEDICARE, MEDICAID, SELFPAY | PROVIDERS: PCP Family Medicine; Visit Provider Dermatology | DX: B02.7 Disseminated zoster (principal); L72.0 Epidermal cyst | CPT/HCPCS: 99214 ==

== ENCOUNTER → 2024-03-08 09:54 | Outpatient (BNVA) | payer MEDICARE, SELFPAY | PROVIDERS: PCP Family Medicine; Visit Provider Physician Assistant | DX: S72.141A Displaced intertrochanteric fracture of right femur, initial encounter for closed fracture (principal); X58.XXXA Exposure to other specified factors, initial encounter | CPT/HCPCS: 73502; 99213 ==

== ENCOUNTER → 2024-03-20 13:46 | Outpatient (BNVA) | payer MEDICARE, MEDICAID, SELFPAY | PROVIDERS: PCP Family Medicine; Visit Provider Dermatology | DX: B02.7 Disseminated zoster (principal) | CPT/HCPCS: 99214 ==

== ENCOUNTER 2024-04-11 09:46 | Emergency (ER) | payer MEDICARE, SELFPAY ==
[2024-04-11] VITALS (11 sets, daily range): BP systolic 109–142; BP diastolic 64–85; PULSE 71–110; RESP 13–23; TEMP 36.6; O2SAT 93–98; BMI 19.4
--- NOTE | 2024-04-11 09:49 | ECG_ITS ---
[facility] Test Date: 2024-04-11 Pat Name: Kaleb Hu Department: Room: Gender: Male Rn School: : 1935 Requested By: Jessica Saavedra Order Number: [id number] Cintia MD: Joey Chavez M.D. Measurements Intervals [place] Rate: 75 P: 80 IA: 155 QRS: 6 QRSD: 110 T: 84 QT: 409 QTc: 458 Interpretive Statements SINUS RHYTHM SEPTAL MYOCARDIAL INFARCTION , PROBABLY OLD [40+ ms Q WAVE IN V1/V2] Compared to ECG 02/13/2024 17:14:16 Ventricular premature complex(es) no longer present Myocardial infarct finding still present Electronically Signed On 04-12-2024 9:04:51 CDT by Joey Chavez M.D. [id number]
--- NOTE | 2024-04-11 09:55 | XR_ITS ---
WS: [id number] Exam: XR chest 1V portable [id number] Date/Time of Exam: 04/11/2024 10:00 AM Reason For Exam: Shortness of breath Comparison 02/13/2024. The lungs are clear and fully expanded. No pleural effusions. Chronic interstitial changes. Heart siz e is normal. Ectasia of the thoracic aorta. Bony structures appear normal. Bilateral carotid artery c alcifications. XR/XR chest 1V portable [id number] IMPRESSION: 1. No acute cardiopulmonary finding. Chronic interstitial changes.
--- NOTE | 2024-04-11 10:03 | ED_ITS ---
HPI - COVID 2 General: Chief Complaint: COVID symptoms Stated Complaint: Covid+, Unresp. Time Seen by Provider: 04/11/24 09:52 History of Present Illness: 88-year-old male with history of A-fib o n Fernandez who presents to the emergency room from [facility] after he was found to be unresponsive this morning. He was diagnosed with COVID a few days ago but is been relatively asymptomatic. He started on Paxlovid. Son says that he had a similar episode about a month ago when he came to the emergency room. He thinks maybe he is having episodes of his A-fib. EMS reports that as soon as they moved in the cot he has become completely responsive. Here he says he just wants to be left alone but his son is documented at least doing some basic workup. Currently no altered mental status. No focal motor deficits. No chest pain. No abdominal pain. He says he does not feel short of breath. COVID Results: 2 SARS-CoV-2 Antigen (Rapid) negative (Negative) 01/20/24 09:40 Related Data Home Medications Medication Instructions Recorded Confirmed ascorbic acid (vitamin C) 1,000 mg 1 gm PO DAILY 06/12/20 04/11/24 tablet cholecalciferol (vitamin D3) 125 125 mcg PO DAILY 06/12/20 04/11/24 mcg (5,000 unit) capsule [id number] 3 tab PO DAILY 06/12/20 04/11/24 750 mg-100 mg-125 mg-1.65 mg tablet (Glucosamine Chondroit Complx Advan) famotidine 10 mg tablet (Pepcid AC) 10 mg PO DAILY 01/16/24 04/11/24 gabapentin 300 mg capsule 300 mg PO BEDTIME 01/16/24 04/11/24 loratadine 10 mg tablet 10 mg PO DAILY 01/16/24 04/11/24 acetaminophen 325 mg tablet 650 mg PO Q6H PRN PAIN OR 02/01/24 04/11/24 INCREASED TEMP bisacodyl 10 mg rectal suppository See Rx Instructions .Route 02/01/24 04/11/24 (Dulcolax (bisacodyl)) .COMPLEX PRN Constipation bisacodyl 5 mg tablet 10 mg PO DAILY PRN Constipation 02/01/24 04/11/24 honey 80 % topical gel (MediHoney See Rx Instructions .Route .COMPLEX 02/01/24 04/11/24 (honey)) magnesium hydroxide 400 mg/5 mL See Rx Instructions .Route 02/01/24 04/11/24 oral suspension (Milk of Magnesia) .COMPLEX PRN Constipation menthol 0.44 %-zinc oxide 20.6 % See Rx Instructions .Route .COMPLEX 02/01/24 04/11/24 topical ointment (Calmoseptine) sodium phosphates 19 gram-7 118 ml MA DAILY PRN Constipation 02/01/24 04/11/24 gram/118 mL enema (Fleet Enema) alprazolam 0.5 mg tablet 0.5 mg PO DAILY PRN 02/03/24 04/11/24 anxiety/restlessness erythromycin 5 mg/gram (0.5 %) eye See Rx Instructions .Route .COMPLEX 04/11/24 04/11/24 ointment (3.5 gram tube) mupirocin 2 % topical ointment See Rx Instructions .Route .COMPLEX 04/11/24 04/11/24 nirmatrelvir 300 mg (150 mg 1 ea PO BID 04/11/24 04/11/24 x2)-ritonavir 100 mg tablet,dose pack (Paxlovid) polyethylene glycol 3350 17 17 g PO DAILY PRN Constipation 04/11/24 04/11/24 gram/dose oral powder (Miralax) silver sulfadiazine 1 % topical See Rx Instructions .Route .COMPLEX 04/11/24 04/11/24 cream sodium chloride-hypochlorous acid See Rx Instructions .Route .COMPLEX 04/11/24 04/11/24 0.033 % irrigation solution (Vashe) Previous Rx's Medication Instructions Recorded folic acid 1 mg tablet 1 mg PO DAILY #90 tabs 09/04/20 docusate sodium 100 mg capsule 100 mg PO BID #60 caps 01/20/24 oxycodone-acetaminophen 5 mg-325 1 tab PO Q4H PRN Moderate Pain #20 01/20/24 mg tablet tabs pantoprazole 40 mg tablet,delayed 40 mg PO BID #60 tabs 01/20/24 release (Protonix) tamsulosin 0.4 mg capsule 0.4 mg PO DAILY #30 caps 01/20/24 tramadol 50 mg tablet 50 mg PO Q4H PRN Mild Pain #20 tabs 01/20/24 potassium chloride 20 mEq 40 meq (2 x 20 mEq) PO DAILY 7 04/11/24 tablet,extended release(part/cryst) days #7 tabs Allergies Allergy/AdvReac Type Severity Reaction Status Date / Time No Known Allergies Allergy Verified 03/08/24 10:40 Review of Systems 2 Narrative: Constitutional symptoms: Negative except as documented in HPI. Skin symptoms: Negative except as documented in HPI. Eye symptoms: Negative except as documented in HPI. ENMT symptoms: Negative except as documented in HPI. Respiratory symptoms: Negative except as documented in HPI. Cardiovascular symptoms: Negative except as documented in HPI. Gastrointestinal symptoms: Negative except as documented in HPI. Genitourinary symptoms: Negative except as documented in HPI. Musculoskeletal symptoms: Negative except as documented in HPI. Neurologic symptoms: Negative except as documented in HPI. Psychiatric symptoms: Negative except as documented in HPI. Endocrine symptoms: Negative except as documented in HPI. 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 Skin: Warm, dry. Some scarring/skin graft on the right face. Head: Normocephalic, atraumatic. Neck: Supple, trachea midline. Eye: Extraocular movements are intact. Ears, nose, mouth and throat: mucosa moist. Cardiovascular: Regular, Normal peripheral perfusion. Respiratory: Lungs are clear to auscultation, respirations are non-labored, breath sounds are equal, Symmetrical chest wall expansion. Gastrointestinal: Soft, Nontender, Non distended Musculoskeletal: Normal ROM, no deformity. Neurological: Alert and oriented, No focal neurological deficit observed. Psychiatric: Cooperative, appropriate mood & affect. Course 2 Vital Signs: Vital signs: Vital Signs Temperature 97.8 F 04/11/24 09:55 Pulse Rate 73 04/11/24 09:55 Respiratory Rate 16 04/11/24 09:55 Blood Pressure 114/68 04/11/24 09:55 Pulse Oximetry 95 04/11/24 10:27 Oxygen Delivery Me thod Room Air 04/11/24 10:[address] [facility] - COVID Medical Decision Making Medical decision making: Differential diagnosis for patient presenting with generalized weakness including but not limited to and based on the above HPI, review of systems and physical exam: Sepsis. Dehydration. Renal failure. Electrolyte abnormalities. Anemia. Congestive heart failure. Hypotension. Coronary syndrome. Hepatitis. Cirrhosis. Infections such as pneumonia, urinary tract infection, [place] illness, Cellulitis, Viral infections including influenza and Covid-19. Workup: labwork and lab/exam driven imaging ordered to evaluate, rule in and rule out above pathologies. EKG: Time 949. Rate 75. Normal sinus rhythm, No ST-T changes, no ectopy, normal MA & QRS intervals, This was reviewed and interpreted by myself the ER physician at 952 Lab Review: Laboratory results were reviewed and interpreted by myself the emergency room physician. No leukocytosis. Stable anemia with a hemoglobin of 9. BUN and creatinine are 13 and 0.9. Of note his potassium is 2.7. This definitely could contribute to an episode of A-fib with RVR which is a possibility for why he was more unresponsive. EMS had told family that his heart seemed to be fluttering. He is in a sinus rhythm here now. I reviewed the patient's medical record. Reexamination: Patient remained stable. No increased work of breathing. No altered mental status. No focal motor deficits. Assessment and plan: COVID-19 Hypokalemia Dehydration ?40 mill equivalents p.o. potassium and 40 mill equivalents IV potassium ?1 L normal saline bolus. - Discharged home - Discussed findings and plan with patient. Answered any questions. - All laboratory values were reviewed and interpreted personally by myself, the ER physician - All imaging was reviewed and interpreted personally by myself, the ER physician. - Evaluation and treatment of this problem were appropriate in the emergency setting Lab Data 04/11/24 10:04 04/11/24 10:04 Radiology Impressions Chest X-Ray 04/11/24 09:55 IMPRESSION: 1. No acute cardiopulmonary finding. Chronic interstitial changes. Laboratory Results WBC 3.97 10^3/uL (3.29-11.43) 04/11/24 10:04 RBC 2.76 10^6/uL (3.85-5.65) L 04/11/24 10:04 Hgb 9.10 g/dL (11.27-16.99) L 04/11/24 10:04 Hct 27.7 % (37-53) L 04/11/24 10:04 MCV 100.4 fl (82-101) 04/11/24 10:04 MCH 33.0 pg (27-33) 04/11/24 10:04 MCHC 32.9 g/dL (30-55) 04/11/24 10:04 RDW 13.7 % (12.1-15.1) 04/11/24 10:04 Plt Count 94 10^3/cmm (157-399) L 04/11/24 10:04 MPV 8.9 fL (7.4-10.4) 04/11/24 10:04 Neut % (Auto) 61.1 % 04/11/24 10:04 Lymph % (Auto) 27.7 % 04/11/24 10:04 [place] % (Auto) 9.6 % 04/11/24 10:04 Eos % (Auto) 1.0 % 04/11/24 10:04 Baso % (Auto) 0.3 % 04/11/24 10:04 Neut # (Auto) 2.43 10^3/uL (1.8-7.7) 04/11/24 10:04 Lymph # (Auto) 1.1 10^3/uL (0.8-4.8) 04/11/24 10:04 [place] # (Auto) 0.4 10^3/uL (0.2-0.9) 04/11/24 10:04 Eos # (Auto) 0.0 10^3/uL (0.0-0.8) 04/11/24 10:04 Baso # (Auto) 0.0 10^3/uL (0.0-0.1) 04/11/24 10:04 Nucleated RBC % (auto) 0 % 04/11/24 10:04 Nucleated RBCs # 0.0 /100WBC 04/11/24 10:04 Sodium 136 mmol/L (136-145) 04/11/24 10:04 Potassium 2.7 mmol/L (3.5-5.1) L* 04/11/24 10:04 Chloride 100 mmol/L (98-107) 04/11/24 10:04 Carbon Dioxide 24 mmol/L (22-29) 04/11/24 10:04 Anion Gap 14.7 (5-19) 04/11/24 10:04 BUN 13 mg/dL (8-23) 04/11/24 10:04 Creatinine 0.9 mg/dL (0.7-1.2) 04/11/24 10:04 GFR Calculation Not Reportable 04/11/24 10:04 Glucose 108 mg/dL (65-115) 04/11/24 10:04 Calculated Osmolality 283 mOsm/kg (285-295) L 04/11/24 10:04 Calcium 7.7 mg/dL (8.5-10.5) L 04/11/24 10:04 Total Bilirubin 0.3 mg/dL (0.15-1.2) 04/11/24 10:04 AST 15 U/L (0-40) 04/11/24 10:04 ALT 6 U/L (0-41) 04/11/24 10:04 Alkaline Phosphatase 110 U/L (40-130) 04/11/24 10:04 C-Reactive Protein 24.1 mg/L (0.0-4.9) H 04/11/24 10:04 Total Protein 5.3 g/dL (6.6-8.7) L 04/11/24 10:04 Albumin 2.8 g/dL (3.5-5.2) L 04/11/24 10:04 Globulin 2.5 g/dL (1.3-4.6) 04/11/24 10:04 Procalcitonin 0.08 ng/mL (0-0.5) 04/11/24 10:04 2 SARS-CoV-2 Antigen (Rapid) negative (Negative) 01/20/24 09:40 All radiology interpretation(s) finalized by discharge Discharge Plan Discharge Patient Disposition: Home Clinical Impression: COVID-19, Hypokalemia, Dehydration Condition: Stable Prescriptions: New potassium chloride 20 mEq tablet,ER particles/crystals 40 meq PO DAILY 7 Days Qty: 7 0RF No Action Glucos Chond Cplx Advanced 750 mg-100 mg- 125 mg-1.65 mg tablet 3 tab PO DAILY cholecalciferol (vitamin D3) 125 mcg (5,000 unit) capsule 125 mcg PO DAILY ascorbic acid (vitamin C) 1,000 mg tablet 1 gm PO DAILY alprazolam 0.5 mg tablet 0.5 mg PO DAILY PRN (Reason: anxiety/restlessness) folic acid 1 mg tablet 1 mg PO DAILY Qty: 90 0RF gabapentin 300 mg capsule 300 mg PO BEDTIME famotidine [Pepcid AC] 10 mg Tablet 10 mg PO DAILY loratadine 10 mg Tablet 10 mg PO DAILY tamsulosin 0.4 mg Capsule 0.4 mg PO DAILY Qty: 30 0RF docusate sodium 100 mg Capsule 100 mg PO BID Qty: 60 0RF tramadol 50 mg Tablet 50 mg PO Q4H PRN (Reason: Mild Pain) Qty: 20 0RF oxycodone-acetaminophen 5-325 mg Tablet 1 tab PO Q4H PRN (Reason: Moderate Pain) Qty: 20 0RF pantoprazole [Protonix] 40 mg tablet,delayed release (DR/EC) 40 mg PO BID Qty: 60 0RF acetaminophen 325 mg Tablet 650 mg PO Q6H PRN (Reason: PAIN OR INCREASED TEMP) magnesium hydroxide [Milk of Magnesia] 400 mg/5 mL Suspension See Rx Instructions .ROUTE .COMPLEX PRN (Reason: Constipation) Rx Instructions: TAKE 30 ML BY MOUTH EVERY 72 HOURS NEEDED IF NO BM IN 3 DAYS. bisacodyl [Dulcolax (bisacodyl)] 10 mg Suppository See Rx Instructions .ROUTE .COMPLEX PRN (Reason: Constipation) Rx Instructions: ADMINISTER 1 SUPPOSITORY RECTALLY ONCE DAILY NEEDED. GIVE RECTALLY IF CAN'T TAKE BY MOUTH , IF NO RESULTS FROM MILK OF MAGNESIA. Fleet Enema 19-7 gram/118 mL Enema 118 ml MA DAILY PRN (Reason: Constipation) Rx Instructions: IF NO RESULTS FROM MILK OF MAGNESIA AND BISACODYL. bisacodyl 5 mg Tablet 10 mg PO DAILY PRN (Reason: Constipation) Rx Instructions: IF NO RESULTS FROM MILK OF MAGNESIA menthol-zinc oxide [Calmoseptine] 0.44-20.6 % ointment See Rx Instructions .ROUTE .COMPLEX Rx Instructions: APPLY TO INTACT SKIN ONLY, EVERY SHIFT FOR PREVENTION. MediHoney (honey) 80 % Gel See Rx Instructions .ROUTE .COMPLEX Rx Instructions: APPLY TO ENTIRE RIGHT SIDE OF FACE THAT IS SCABBED AND ALL OTHER SCABBED AREAS ON BODY EVERY 4 HOURS AND NEEDED. silver sulfadiazine 1 % cream See Rx Instructions .ROUTE .COMPLEX Rx Instructions: Apply topically every shift to right lower extremity. Cleanse with n/s and gauze. Apply cream and cover with abd, wrap wit kerlix and secure with tape. erythromycin 5 mg/gram (0.5 %) ointment See Rx Instructions .ROUTE .COMPLEX Rx Instructions: Apply small amount to right eye daily and cover with gauze and tape. If pt refuses gauze, apply every 2 hours while awake. mupirocin 2 % ointment See Rx Instructions .ROUTE .COMPLEX Rx Instructions: Apply topically twice daily to face and areas on body. Miralax 17 gram/dose Powder 17 g PO DAILY PRN (Reason: Constipation) Rx Instructions: Mix 17g (1 capful) in 8 ounces liquid and drink entire liquid daily as needed for constipation. Vashe 0.033 % Irrigation Solution See Rx Instructions .ROUTE .COMPLEX Rx Instructions: Cleanse sacrum with vashe and gauze, pack with 1/2 inch packing strip coated wit medihoney, cover wit bordered foam twice daily. If previous shift did dressing, no need to complete. Paxlovid 300 mg (150 mg x 2)-100 mg tablets,dose pack 1 ea PO BID Discharge Orders: Discharge ED (Routine); Ordered 04/11/24 Ordered By: Jessica Simon Referrals: Sage Black MD [Primary Care Provider] - Discharge Diet: Usual diet Discharge Activity: Increase activity as tolerated Patient Instructions: Hypokalemia (ED), How to Recover from COVID-19 at Home (ED) Activity Restrictions/Additional Instructions: Thank you for choosing [facility] for your healthcare needs today. Please realize this is an emergency room and that we are providing you with a medical screening exam and this may not be complete and all inclusive of all the testing and or work up that you may need to determine your ailment or severity of your illness. You have been screened and evaluated and felt safe for discharge. Health conditions do change or evolve sometimes and as such it is important that you follow up with your Primary Doctor to be re checked, 3-5 days is a general good time frame for follow up. You are always welcome to return to the ED for re assessment if your symptoms are worsening or you have new concerns Coding Level of Care Code ED Hair Colorist for Adam Lamas
--- NOTE | 2024-04-11 10:07 | PC.PHAR ---
Addendum entered by Hilda Arteaga 04/11/24 11:06: Dr Ram prescribed Eliquis 2.5mg and Valacyclovir 1gm on 01/20/24-verified with Eugenia ma [facility]-pt no longer taking these meds. Original Note: [facility] faxing med list 04/11/24 10:07am
[2024-04-11 10:10] LABS: Basophils % 0.3 %; Hematocrit 27.7 % (37-53); Lymphocytes # 1.1 10^3/uL (0.8-4.8); Lymphocytes % 27.7 %; Mean Corpuscular HGB Conc 32.9 g/dL (30-55); Mean Corpuscular Volume 100.4 fl (82-101); Mean Platelet Volume 8.9 fL (7.4-10.4); Monocytes # 0.4 10^3/uL (0.2-0.9); Monocytes % 9.6 %; Neutrophils # 2.43 10^3/uL (1.8-7.7); Neutrophils % 61.1 %; Nucleated Red Blood Cells % 0 %; Platelet Count 94 10^3/cmm (157-399); Red Blood Count 2.76 10^6/uL (3.85-5.65); Red Cell Distribution Width 13.7 % (12.1-15.1); White Blood Count 3.97 10^3/uL (3.29-11.43)
[2024-04-11 10:35] LABS: Alanine Aminotransferase 6 U/L (0-41); Albumin Level 2.8 g/dL (3.5-5.2); Alkaline Phosphatase 110 U/L (40-130); Anion Gap 14.7 (5-19); Aspartate Amino Transferase 15 U/L (0-40); Blood Urea Nitrogen 13 mg/dL (8-23); C Reactive Protein 24.1 mg/L (0.0-4.9); Calcium 7.7 mg/dL (8.5-10.5); Carbon Dioxide 24 mmol/L (22-29); Chloride 100 mmol/L (98-107); Creatinine Clr Calc Pharmacy 51.5699; Globulin 2.5 g/dL (1.3-4.6); Glucose 108 mg/dL (65-115); Osmolality Calculated 283 mOsm/kg (285-295); Sodium 136 mmol/L (136-145); Total Bilirubin 0.3 mg/dL (0.15-1.2); Total Protein 5.3 g/dL (6.6-8.7)
[2024-04-11 10:42] LABS: Procalcitonin 0.08 ng/mL (0-0.5)
[2024-04-11 10:47] LABS: Potassium 2.7 mmol/L (3.5-5.1)
[2024-04-11] MEDS: sodium chloride 0.9% 1,000 ML 999 ML IV (11:47)
[2024-04-11] MEDS: potassium chloride premix 100 ML 25 MEQ IV (11:48)
[2024-04-11] MEDS: potassium chloride oral liq 20 mEq/15 mL UDC 40 MEQ PO (12:16)
== END 2024-04-11 16:01 | disposition home or self-care (01) ==
PROVIDERS: Emergency Provider Emergency Medicine; PCP Family Medicine
DX: U07.1 COVID-19 (principal); E87.6 Hypokalemia; E86.0 Dehydration; Z87.891 Personal history of nicotine dependence; L89.159 Pressure ulcer of sacral region, unspecified stage
CPT/HCPCS: 36415; 71045; 80053; 84145; 85025; 86140; 93005; 96374; 99285; J3480; J7030

== ENCOUNTER → 2024-05-09 10:25 | Outpatient (BNVA) | payer MEDICARE, SELFPAY | PROVIDERS: PCP Family Medicine; Visit Provider Dermatology | DX: B02.7 Disseminated zoster (principal) | CPT/HCPCS: 99214 ==

== ENCOUNTER → 2024-06-15 08:12 | Outpatient (BNVA) | payer MEDICARE, SELFPAY | PROVIDERS: PCP Family Medicine; Visit Provider Physician Assistant | DX: S72.141A Displaced intertrochanteric fracture of right femur, initial encounter for closed fracture (principal); X58.XXXA Exposure to other specified factors, initial encounter | CPT/HCPCS: 73502; 99213 ==

== ENCOUNTER 2024-06-25 11:34 | Emergency (ER) | payer MEDICARE, SELFPAY ==
[2024-06-25] VITALS (7 sets, daily range): BP systolic 120–135; BP diastolic 62–77; PULSE 63–87; RESP 16–22; TEMP 37; O2SAT 96–100; BMI 18.2
--- NOTE | 2024-06-25 11:35 | XRR_ITS ---
PROCEDURE INFORMATION: Exam: XR Right Hip Exam date and time: 06/25/2024 12:16 PM Age: 89 years old Clinical indication: Injury or trauma; Fall; Blunt trauma (contusions or hematomas); Right; Hip TECHNIQUE: Imaging protocol: Radiologic exam of the right hip. Views: 1 view hip with pelvis when performed. COMPARISON: CR XR hip RT 2-3V wo/w pel* [id number] 06/15/2024 8:21 AM FINDINGS: Bones/joints: ORIF of a intertrochanteric fracture of the proximal right femur. Intact hardware. Unchanged alignment. Arterial calcifications. Hypertrophic bone fracture site, line is unchanged since prior. No acute fracture. Soft tissues: Unremarkable. XR/XR hip RT 2-3V wo/w pel* [id number] IMPRESSION: No significant change.
--- NOTE | 2024-06-25 11:40 | CT_ITS ---
WS: [id number] CT HEAD NONCONTRAST HISTORY: fall TECHNIQUE: Contiguous axial imaging performed through the brain. Bone and soft tissue windows. Sagitt al and coronal reformats reviewed. All CT scans at [facility] use at least one of these dose optimization techniques: automated exposure control; mA and/or kV adjustment per patient size (includ es targeted exams where dose is matched to clinical indication); or iterative reconstruction. DLP: 1426.21 mGy.cm COMPARISON: 02/13/2024 No acute intracranial hemorrhage, midline shift or mass effect. Moderate atrophy and small vessel disease. Ventricles: Mildly prominent ventricles on the basis of atrophy. No inferior displacement of the cerebellar tonsils. Paranasal sinuses: As visualized are clear. Mastoid air cells: Bilateral mastoid air cell disease. Increased opacification of the RIGHT mastoid a ir cells. Calvarium and scalp: Skull is intact with no soft tissue edema or swelling. CT/CT head wo con* [id number] IMPRESSION: 1. No acute intracranial hemorrhage or edema. 2. Moderate small vessel ischemic disease and atrophy. Similar to the prior st udy of 02/13/2024.
--- NOTE | 2024-06-25 11:40 | XRR_ITS ---
PROCEDURE INFORMATION: Exam: XR Right Femur Exam date and time: 06/25/2024 12:16 PM Age: 89 years old Clinical indication: Injury or trauma; Fall; Blunt trauma; Thigh or upper leg; Right TECHNIQUE: Imaging protocol: Radiologic exam of the right femur. Views: 2 views. COMPARISON: CR XR femur RT min 2V* [id number] 01/16/2024 9:34 AM FINDINGS: Bones/joints: ORIF of the proximal femur. Degenerative changes of the hip and knee. No acute osseous, joint, or soft tissue abnormality.. No acute fracture. Soft tissues: See Bones/joints finding. XR/XR femur RT min 2V* [id number] IMPRESSION: No acute findings.
--- NOTE | 2024-06-25 11:40 | CT_ITS ---
WS: [id number] CT CERVICAL SPINE HISTORY: fall TECHNIQUE: Contiguous 2.0 mm axial imaging performed through the entire cervical spine. Sagittal and coronal reformats also performed. All CT scans at [facility] use at least one of these dose o ptimization techniques: automated exposure control; mA and/or kV adjustment per patient size (include s targeted exams where dose is matched to clinical indication); or iterative reconstruction. DLP: 1426.21 mGy.cm COMPARISON: 01/16/2024 Advanced degenerative changes throughout the cervical spine. Disc bases are narrowed. Osteophytes and osteopenia. No cervical spine fractures identified. Facet joint effusion on the RIGHT at C3-4. Crani ocervical junction is normal. Lateral masses are aligned. The odontoid process is normal. Extensive vascular calcifications in the vertebral arteries. CT/CT cervical spin wo con* [id number] IMPRESSION: 1. Advanced degenerative changes in the cervical spine. 2. No cervical spine fracture.
--- NOTE | 2024-06-25 11:40 | XRR_ITS ---
PROCEDURE INFORMATION: Exam: XR Right Knee Exam date and time: 06/25/2024 12:16 PM Age: 89 years old Clinical indication: Injury or trauma; Fall; Blunt trauma; Knee; Right TECHNIQUE: Imaging protocol: Radiologic exam of the right knee. Views: 3 views. COMPARISON: CR XR knee RT 1-2V [id number] 01/16/2024 9:39 AM FINDINGS: Bones/joints: Extremely severe osteoarthritis with bone on bone articulation, marginal spurring, eburnation, and periarticular cyst formation. No joint effusion or lipohemarthrosis. Lateral bowing of the knee. Soft tissues: Normal. Vasculature: Arterial calcifications. XR/XR knee RT 3V* [id number] IMPRESSION: Severe osteoarthritis.
--- NOTE | 2024-06-25 11:46 | ED_ITS ---
HPI - Fall General: Chief Complaint: Fall Stated Complaint: fall R hip pain Time Seen by Provider: 06/25/24 11:35 Source: patient and EMS Mode of arrival: EMS Limitations: no limitations History of Present Illness: 89-year-old male who is here from local shelter he had a fall this morning is unwitnessed patient is complaining of right hip and knee pain. States pain sharp in nature rates it a 5 out of 10 patient has severe arthritis has difficulty walking at baseline. Also has a hematoma to posterior scalp he is unsure if he hit his head or not. Associated symptoms-after fall: Denies abdominal pain, chest pain, headache(s) or neck pain Related Data Home Medications Medication Instructions Recorded Confirmed ascorbic acid (vitamin C) 1,000 mg 1 gm PO DAILY 06/12/20 06/25/24 tablet cholecalciferol (vitamin D3) 125 125 mcg PO DAILY 06/12/20 06/25/24 mcg (5,000 unit) capsule afmvykjrysh-ppjaltqqh-[id number]-hyal 3 tab PO DAILY 06/12/20 06/25/24 750 mg-100 mg-125 mg-1.65 mg tablet (Glucosamine Chondroit Complx Advan) famotidine 10 mg tablet (Pepcid AC) 10 mg PO DAILY 01/16/24 06/25/24 gabapentin 300 mg capsule 300 mg PO BEDTIME 01/16/24 06/25/24 loratadine 10 mg tablet 10 mg PO DAILY 01/16/24 06/25/24 acetaminophen 325 mg tablet 650 mg PO Q6H PRN PAIN OR 02/01/24 06/25/24 INCREASED TEMP bisacodyl 10 mg rectal suppository See Rx Instructions .Route 02/01/24 06/25/24 (Dulcolax (bisacodyl)) .COMPLEX PRN Constipation bisacodyl 5 mg tablet 10 mg PO DAILY PRN Constipation 02/01/24 06/25/24 honey 80 % topical gel (MediHoney See Rx Instructions .Route .COMPLEX 02/01/24 06/25/24 (honey)) magnesium hydroxide 400 mg/5 mL See Rx Instructions .Route 02/01/24 06/25/24 oral suspension (Milk of Magnesia) .COMPLEX PRN Constipation menthol 0.44 %-zinc oxide 20.6 % See Rx Instructions .Route .COMPLEX 02/01/24 06/25/24 topical ointment (Calmoseptine) sodium phosphates 19 gram-7 118 ml VA DAILY PRN Constipation 02/01/24 06/25/24 gram/118 mL enema (Fleet Enema) alprazolam 0.5 mg tablet 0.5 mg PO DAILY PRN 02/03/24 06/25/24 anxiety/restlessness erythromycin 5 mg/gram (0.5 %) eye See Rx Instructions .Route .COMPLEX 04/11/24 06/25/24 ointment (3.5 gram tube) mupirocin 2 % topical ointment See Rx Instructions .Route .COMPLEX 04/11/24 06/25/24 nirmatrelvir 300 mg (150 mg 1 ea PO BID 04/11/24 06/25/24 x2)-ritonavir 100 mg tablet,dose pack (Paxlovid) polyethylene glycol 3350 17 17 g PO DAILY PRN Constipation 04/11/24 06/25/24 gram/dose oral powder (Miralax) silver sulfadiazine 1 % topical See Rx Instructions .Route .COMPLEX 04/11/24 06/25/24 cream sodium chloride-hypochlorous acid See Rx Instructions .Route .COMPLEX 04/11/24 06/25/24 0.033 % irrigation solution (Vashe) Previous Rx's Medication Instructions Recorded folic acid 1 mg tablet 1 mg PO DAILY #90 tabs 09/04/20 docusate sodium 100 mg capsule 100 mg PO BID #60 caps 01/20/24 oxycodone-acetaminophen 5 mg-325 1 tab PO Q4H PRN Moderate Pain #20 01/20/24 mg tablet tabs pantoprazole 40 mg tablet,delayed 40 mg PO BID #60 tabs 01/20/24 release (Protonix) tamsulosin 0.4 mg capsule 0.4 mg PO DAILY #30 caps 01/20/24 tramadol 50 mg tablet 50 mg PO Q4H PRN Mild Pain #20 tabs 01/20/24 Allergies Allergy/AdvReac Type Severity Reaction Status Date / Time No Known Allergies Allergy Verified 06/15/24 08:34 Review of Systems Const: Denies: fever(s), chills, body aches or change in appetite Eyes: Denies: blurry vision or eye discomfort ENMT: Denies: throat pain or dental pain Card: Denies: chest pain Resp: Denies: dyspnea GI: Denies: abdominal pain, nausea, vomiting or diarrhea Musc: Reports: extremity pain; Denies: neck pain or back pain Skin/Breast: Denies: rash Neuro: Denies: headache(s) PFSH ED PFSH: Medical History Flexion deformity, left knee Flexion deformity, right knee 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 Osteoarthritis Immunization counseling High risk medication use Seropositive rheumatoid arthritis of multiple sites Joint pain History of skin cancer in adulthood Surgical History History of cholecystectomy Family History Other Cancer Diabetes Hx of migraines Denies family history of Rheumatoid arthritis Lupus Lung disease Hypertension Stroke Social History Smoking and tobacco/nicotine status: never used tobacco/nicotine Alcohol intake: former Physical Exam Const: COMMON NORMALS: no acute distress, patient oriented x3 and healthy appearing HENMT: COMMON NORMALS: normocephalic HEAD & SCALP: normocephalic OTHER: Posterior scalp hematoma Eye: COMMON NORMALS: Equal, round and reactive pupils present and EOMs intact bilaterally PUPIL: Yes Equal, round and reactive pupils present Neck/C-Spine: COMMON NORMALS: full ROM and supple Chest: COMMONS NORMALS: normal inspection of the chest Resp: COMMON NORMALS: normal respiratory effort, No retractions, No use of accessory muscles and clear to auscultation bilaterally AUSCULTATION: clear to auscultation bilaterally Cardio: COMMON NORMALS: regular rate, regular rhythm and No murmurs present (Cardio) RATE: regular rate RHYTHM: regular rhythm GI: COMMON NORMALS: Normal to inspection, nondistended, normoactive bowel sounds present, Soft to palpation, non-tender and no masses PALPATION: Yes Soft to palpation Extremity: COMMON NORMALS: full ROM NARRATIVE EXTREMITY EXAM: Tenderness to right hip femur and knee with no obvious deformities Neuro: COMMON NORMALS: patient oriented x3, moves all extremities and no focal motor deficits Psych: COMMON NORMALS: mental status grossly normal, Normal thought process present and cooperative THOUGHT PROCESS: Normal thought process present Skin: COMMON NORMALS: no rashes or lesions noted and no wounds GENERAL SKIN EXAM: no rashes or lesions noted Course Vital Signs: Vital signs: Vital Signs Temperature 98.6 F 06/25/24 11:37 Pulse Rate 63 06/25/24 14:00 Respiratory Rate 16 06/25/24 13:30 Blood Pressure 126/69 06/25/24 14:00 Pulse Oximetry 98 06/25/24 14:00 Oxygen Delivery Me thod Room Air 06/25/24 14:00 MDM - Fall Medical Decision Making Patient presents here after a fall he is having some hip and leg pain imaging here shows no acute fractures he is followed back up with his orthopedic surgeon pains improved stable for discharge back to shelter Medical Records I reviewed the patient's medical records. Lab Data I reviewed the patient's lab results. Radiology Impressions Hip/Pelvis X-Ray 06/25/24 11:35 IMPRESSION: No significant change. Cervical Spine CT 06/25/24 11:40 IMPRESSION: 1. Advanced degenerative changes in the cervical spine. 2. No cervical spine fracture. Femur X-Ray 06/25/24 11:40 IMPRESSION: No acute findings. Head CT 06/25/24 11:40 IMPRESSION: 1. No acute intracranial hemorrhage or edema. 2. Moderate small vessel ischemic disease and atrophy. Similar to the prior study of 02/13/2024. Knee X-Ray 06/25/24 11:40 IMPRESSION: Severe osteoarthritis. Hip CT 06/25/24 13:15 IMPRESSION: 1. Status post ORIF. Extensive callus formation with incomplete healing of the fracture. No definite acute fracture is identified superimposed on the partial healing. 2. Migration of the gamma nail since 03/08/2024. Gamma nail now extends through the femoral head through the hip joint into the acetabulum. Erosions with loss of bone in the acetabulum. Significant lucency surrounding the gamma nail suggesting loosening. 3. Soft tissue changes overlying the RIGHT hip. Soft tissue changes with edema. In part related to the recent trauma. All radiology interpretation(s) finalized by discharge Discharge Plan Discharge Patient Disposition: Home Clinical Impression: Fall, Right hip pain Condition: Stable Prescriptions: No Action Glucos Chond Cplx Advanced 750 mg-100 mg- 125 mg-1.65 mg tablet 3 tab PO DAILY cholecalciferol (vitamin D3) 125 mcg (5,000 unit) capsule 125 mcg PO DAILY ascorbic acid (vitamin C) 1,000 mg tablet 1 gm PO DAILY alprazolam 0.5 mg tablet 0.5 mg PO DAILY PRN (Reason: anxiety/restlessness) folic acid 1 mg tablet 1 mg PO DAILY Qty: 90 0RF gabapentin 300 mg capsule 300 mg PO BEDTIME famotidine [Pepcid AC] 10 mg Tablet 10 mg PO DAILY loratadine 10 mg Tablet 10 mg PO DAILY tamsulosin 0.4 mg Capsule 0.4 mg PO DAILY Qty: 30 0RF docusate sodium 100 mg Capsule 100 mg PO BID Qty: 60 0RF tramadol 50 mg Tablet 50 mg PO Q4H PRN (Reason: Mild Pain) Qty: 20 0RF oxycodone-acetaminophen 5-325 mg Tablet 1 tab PO Q4H PRN (Reason: Moderate Pain) Qty: 20 0RF pantoprazole [Protonix] 40 mg tablet,delayed release (DR/EC) 40 mg PO BID Qty: 60 0RF acetaminophen 325 mg Tablet 650 mg PO Q6H PRN (Reason: PAIN OR INCREASED TEMP) magnesium hydroxide [Milk of Magnesia] 400 mg/5 mL Suspension See Rx Instructions .ROUTE .COMPLEX PRN (Reason: Constipation) Rx Instructions: TAKE 30 ML BY MOUTH EVERY 72 HOURS NEEDED IF NO BM IN 3 DAYS. bisacodyl [Dulcolax (bisacodyl)] 10 mg Suppository See Rx Instructions .ROUTE .COMPLEX PRN (Reason: Constipation) Rx Instructions: ADMINISTER 1 SUPPOSITORY RECTALLY ONCE DAILY NEEDED. GIVE RECTALLY IF CAN'T TAKE BY MOUTH , IF NO RESULTS FROM MILK OF MAGNESIA. Fleet Enema 19-7 gram/118 mL Enema 118 ml VA DAILY PRN (Reason: Constipation) Rx Instructions: IF NO RESULTS FROM MILK OF MAGNESIA AND BISACODYL. bisacodyl 5 mg Tablet 10 mg PO DAILY PRN (Reason: Constipation) Rx Instructions: IF NO RESULTS FROM MILK OF MAGNESIA menthol-zinc oxide [Calmoseptine] 0.44-20.6 % ointment See Rx Instructions .ROUTE .COMPLEX Rx Instructions: APPLY TO INTACT SKIN ONLY, EVERY SHIFT FOR PREVENTION. MediHoney (honey) 80 % Gel See Rx Instructions .ROUTE .COMPLEX Rx Instructions: APPLY TO ENTIRE RIGHT SIDE OF FACE THAT IS SCABBED AND ALL OTHER SCABBED AREAS ON BODY EVERY 4 HOURS AND NEEDED. silver sulfadiazine 1 % cream See Rx Instructions .ROUTE .COMPLEX Rx Instructions: Apply topically every shift to right lower extremity. Cleanse with n/s and gauze. Apply cream and cover with abd, wrap wit kerlix and secure with tape. erythromycin 5 mg/gram (0.5 %) ointment See Rx Instructions .ROUTE .COMPLEX Rx Instructions: Apply small amount to right eye daily and cover with gauze and tape. If pt refuses gauze, apply every 2 hours while awake. mupirocin 2 % ointment See Rx Instructions .ROUTE .COMPLEX Rx Instructions: Apply topically twice daily to face and areas on body. polyethylene glycol 3350 [Miralax] 17 gram/dose Powder 17 g PO DAILY PRN (Reason: Constipation) Rx Instructions: Mix 17g (1 capful) in 8 ounces liquid and drink entire liquid daily as needed for constipation. Vashe 0.033 % Irrigation Solution See Rx Instructions .ROUTE .COMPLEX Rx Instructions: Cleanse sacrum with vashe and gauze, pack with 1/2 inch packing strip coated wit medihoney, cover wit bordered foam twice daily. If previous shift did dressing, no need to complete. Paxlovid 300 mg (150 mg x 2)-100 mg tablets,dose pack 1 ea PO BID Discharge Orders: Discharge ED (Routine); Ordered 06/25/24 Ordered By: Reji Mcgowan Referrals: Sage Black MD [Primary Care Provider] - Grabiel Antonio DO [Physician] - 1-3 days Discharge Diet: Advance as tolerated Discharge Activity: Resume usual activity Patient Instructions: Hip Pain (ED) Coding Level of Care Code ED Refrigerating Engineer for Adam Lamas
--- NOTE | 2024-06-25 12:10 | PC.PHAR ---
waiting on [facility] to send med list
--- NOTE | 2024-06-25 13:15 | CT_ITS ---
WS: [id number] CT RIGHT HIP, NONCONTRAST HISTORY: fall Technique: All CT scans at [facility] use at least one of these dose optimization techniques: automated exposure control; mA and/or kV adjustment per patient size (includes targeted exams where dose is matched to clinical indication); or iterative reconstruction. DLP: 294.96 mGy.cm COMPARISON: Radiographs 03/08/2024, 06/25/2024 Status post ORIF comminuted RIGHT hip fracture. Comminuted remote hip fracture with partial healing. There are still fracture lines evident. Although there is incomplete healing it cannot be determined if there are acute fractures. The margins of the fracture appear corticated suggesting it may not be an acute component. Markedly comminuted fracture. Change in position of the gamma nail since the prior radiographic evaluations from several months ago . The gamma nail has now migrated through the superior femoral head and extends into the acetabulum w ith erosions. Significant amount of lucency surrounding the gamma nail consistent with loosening. There is a large amount of soft tissue edema over the hip which may be the site of trauma from the re cent fall. CT/CT hip RT wo con* [id number] IMPRESSION: 1. Status post ORIF. Extensive callus formation with incomplete healing of the fracture. No definite acute fracture is identified superimposed on the partial healing. 2. Migration of the gamma nail since 03/08/2024. Gamma nail now extends through the femoral head through the hip joint into the acetabulum. Erosions with loss of bone in the acetabulum. Significant lucency surrounding the gamma nail sugg esting loosening. 3. Soft tissue changes overlying the RIGHT hip. Soft tissue changes with edema . In part related to the recent trauma.
--- NOTE | 2024-06-25 13:22 | PC.NURSE ---
pt stating he doesn't want an IV, requesting pain meds other way. Dr. Mcgowan notified and states to give Morphine IM.
[2024-06-25] MEDS: morphine 4 mg/mL SDV 1 mL IVP (13:26)
--- NOTE | 2024-06-25 14:43 | PC.NURSE ---
this nurse called [facility], gave report, they have no transport available.
--- NOTE | 2024-06-28 07:06 | DCPLANNER ---
messaged ortho for er f/u
== END 2024-06-25 14:54 | disposition home or self-care (01) ==
PROVIDERS: Emergency Provider Emergency Medicine; PCP Family Medicine
DX: M25.551 Pain in right hip (principal); W19.XXXA Unspecified fall, initial encounter; Z85.828 Personal history of other malignant neoplasm of skin
CPT/HCPCS: 70450; 72125; 73502; 73552; 73562; 73700; 96374; 99285; J2270

== ENCOUNTER → 2024-07-05 09:41 | Outpatient (BNVA) | payer MEDICARE, SELFPAY | PROVIDERS: PCP Family Medicine; Visit Provider Physician Assistant | DX: M25.551 Pain in right hip (principal); T84.194A Other mechanical complication of internal fixation device of right femur, initial encounter; W19.XXXA Unspecified fall, initial encounter | CPT/HCPCS: 73502; 99214 ==

== ENCOUNTER 2024-07-06 13:05 | Day surgery (SDC) | payer MEDICARE, SELFPAY ==
[2024-07-06] VITALS (11 sets, daily range): BP systolic 108–138; BP diastolic 53–74; PULSE 54–73; RESP 16–18; TEMP 36.1–36.5; O2SAT 97–100; BMI 17.4
--- NOTE | 2024-07-06 13:50 | ANES.PREANE2 ---
Pre-Anesthetic Assessment Height/Weight: Height 1.73 m Operation Date: 07/06/24 15:35 Proposed Procedures p Hardware Removal Trochanteric Nail Gamma Nail Removal/hip orthopedic hardware removal(Right) - Grabiel Antonio DO Familial anesthetic complications: none Was Beta Shagufta taken within 24 hours: N/A Was Clonidine taken within 24 hours: N/A Last intake: > 8hrs Social No alcohol and No tobacco Exam alert, oriented x 3, clear to auscultation bilaterally and regular rate & rhythm Airway Mallampati: Class II Dentition: false CV/HEM Atrial Fibrillation and Hypertension GI Gastroesophageal Reflux [place] [facility] [place] Rheumatoid Arthritis Neuropsych Dementia Anesthetic Plan ASA status: 3 Anesthesia: General Risk of > 500 ml blood loss (7ml/kg in children): No Medications/Allergies Home Medications Medication Instructions Recorded Confirmed Last Taken Type ascorbic acid (vitamin C) 1,000 mg 1,000 mg PO DAILY 06/12/20 07/05/24 07/04/24 History tablet cholecalciferol (vitamin D3) 125 125 mcg PO DAILY 06/12/20 07/05/24 07/04/24 History mcg (5,000 unit) capsule bvbjqikrsoz-rtnsisoob-hgbk411-hyal 3 tab PO DAILY 06/12/20 07/05/24 07/04/24 History 750 mg-100 mg-125 mg-1.65 mg tablet (Glucosamine Chondroit Complx Advan) folic acid 1 mg tablet 1 mg PO DAILY #90 tabs 09/04/20 07/05/24 07/04/24 Rx famotidine 10 mg tablet (Pepcid AC) 10 mg PO DAILY 01/16/24 07/05/24 07/04/24 History gabapentin 300 mg capsule 300 mg PO BEDTIME 01/16/24 07/06/24 07/05/24 History loratadine 10 mg tablet 10 mg PO DAILY 01/16/24 07/05/24 07/04/24 History docusate sodium 100 mg capsule 100 mg PO BID #60 caps 01/20/24 07/06/24 07/05/24 Rx oxycodone-acetaminophen 5 mg-325 1 tab PO Q4H PRN Moderate Pain #20 01/20/24 07/06/24 07/06/24 Rx mg tablet tabs pantoprazole 40 mg tablet,delayed 40 mg PO BID #60 tabs 06/03/0707/06/24 07/06/24 Rx release (Protonix) tamsulosin 0.4 mg capsule 0.4 mg PO DAILY #30 caps 01/20/24 07/06/24 07/05/24 Rx tramadol 50 mg tablet 50 mg PO Q4H PRN Mild Pain #20 tabs 01/20/24 07/05/24 06/24/24 Rx acetaminophen 325 mg tablet 650 mg PO Q6H PRN PAIN OR 02/01/24 07/06/24 06/05/24 History INCREASED TEMP bisacodyl 10 mg rectal suppository 10 mg VA DAILY PRN Constipation 02/01/24 07/06/24 Unknown History (Dulcolax (bisacodyl)) bisacodyl 5 mg tablet 10 mg PO DAILY PRN Constipation 02/01/24 07/05/24 05/17/24 History magnesium hydroxide 400 mg/5 mL See Rx Instructions .Route 02/01/24 07/06/24 02/17/24 History oral suspension (Milk of Magnesia) .COMPLEX PRN Constipation menthol 0.44 %-zinc oxide 20.6 % See Rx Instructions .Route .COMPLEX 02/01/24 07/06/24 07/06/24 History topical ointment (Calmoseptine) sodium phosphates 19 gram-7 118 ml VA DAILY PRN Constipation 02/01/24 07/05/24 Unknown History gram/118 mL enema (Fleet Enema) alprazolam 0.5 mg tablet 0.5 mg PO DAILY PRN 02/03/24 07/06/24 07/06/24 History anxiety/restlessness mupirocin 2 % topical ointment See Rx Instructions .Route .COMPLEX 04/11/24 07/06/24 07/06/24 History silver sulfadiazine 1 % topical See Rx Instructions .Route .COMPLEX 04/11/24 07/06/24 07/06/24 History cream sodium chloride-hypochlorous acid See Rx Instructions .Route .COMPLEX 04/11/24 07/05/24 06/29/24 History 0.033 % irrigation solution (Vashe) doxycycline hyclate 100 mg capsule 100 mg PO BID 07/05/24 07/05/24 07/04/24 History honey 80 % topical gel (MediHoney See Rx Instructions .Route .COMPLEX 07/06/24 07/06/24 Unknown History (honey)) polyethylene glycol 3350 17 17 g PO PRN 07/06/24 07/06/24 Unknown History gram/dose oral powder (Miralax) Allergies Allergy/AdvReac Type Severity Reaction Status Date / Time No Known Allergies Allergy Verified 07/06/24 13:24 [facility] Anesthesia Medical History Flexion deformity, left knee Flexion deformity, right knee 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
--- NOTE | 2024-07-06 13:53 | W.PM.OPSUD ---
Surgery/Procedure H&P Update DATE OF PROCEDURE: July 06, 2024 DATE H&P PERFORMED: 07/05/24 H&P UPDATE INFORMATION: I have reviewed H&P completed within last 30 days, I have examined patient prior to procedure and No changes to prior documentation PREOP DIAGNOSIS: Right hip hardware failure PRIMARY INDICATION FOR PROCEDURE: Right hip trochanteric hardware failure with protruding lag screw PLANNED PROCEDURE: Operation Date: 07/06/24 15:35 Proposed Procedures p Hardware Removal Trochanteric Nail Gamma Nail Removal/hip orthopedic hardware removal(Right) - Grabiel Antonio DO
[2024-07-06] MEDS: ketorolac 30 mg/mL INJ IVP (13:55)
[2024-07-06] MEDS: acetaminophen 1,000 MG/100 ML PIGGYBACK 400 MG IV (13:59)
[2024-07-06] MEDS: sodium chloride 0.9% 1,000 ML 30 ML IV (13:59)
[2024-07-06] MEDS: fentaNYL 50 mcg/mL INJ 2mL 25 MCG IVP (14:15)
[2024-07-06 14:19] LABS: Potassium 3.2 mmol/L (3.5-5.1)
[2024-07-06] MEDS: ceFAZolin 2,000 MG in sodium chloride 0.9% (plus) 50 ML 100 MG IV (14:40)
--- NOTE | 2024-07-06 14:40 | XR_ITS ---
WS: [id number] C-ARM RADIOGRAPHS RIGHT HIP; 8 IMAGES HISTORY: RT HIP HARDWARE REMOVAL; OR PICS COMPARISON: 07/05/2024 Initial image submitted is of the LEFT hip. No hardware. On later images the migrated gamma nail is i dentified involving the RIGHT hip. The gamma nail is removed. XR/XR hip RT 2-3V wo/w pel* [id number] IMPRESSION: Intraoperative imaging during removal of the migrated gamma nail.
[2024-07-06] MEDS: tranexamic acid 1,000 mg/10mL SDV 1000 MG IV (15:15)
--- NOTE | 2024-07-06 16:36 | W.PM.BPON ---
Date of Procedure: 07/06/2024 Surgeon: Grabiel Antonio DO Crab Meat Processor(s): Doug Antonio PA-C Procedure(s) performed: Right hip deep orthopedic hardware removal x 2 (set screw removal, lag screw removal) Findings of the procedure(s): Patient was found to have failure of the lag screw with protrusion into the acetabulum/hip joint patient subsequently underwent setscrew removal and lag screw removal after talking with family this is our plan of only removing this we did take the hip through range of motion after this was removed and it did move as a unit with the head in the femoral shaft. Also we took the left hip through live fluoroscopic imaging and moved as a unit as well. 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
--- NOTE | 2024-07-06 16:39 | PM.OP ---
Operative Report Date of procedure: July 06, 2024 Pre-op diagnosis: Right hip lag screw hardware failure Post-op diagnosis: Same with healing/healed greater trochanter fracture on the left, healing right intertrochanteric fracture on the right Post-op findings: See operative report narrative Procedure done: Right hip deep orthopedic hardware removal x 2 (setscrew removal, lag screw removal) Surgeon: Grabiel Antonio DO Government Auditor: Doug Antonio PA-C: ROMIE was necessary for assistance in this case with leg positioning retraction and protection of neurovascular structures as well as assistance with hardware removal wound closure and dressing application. Anesthesia: General Estimated blood loss: 30 mL IV fluids: 700 mL Complications: None Findings: See operative report narrative Condition: stable Disposition: same day Brief History: Patient is a 89-year-old gentleman who sustained a right intertrochanteric femur fracture underwent ORIF. Unfortunately the postoperative course hardware failure specifically the lag screw has begun to protrude through the humeral head and into the acetabulum. Was seen in the outpatient setting with family he does have considerable callus and healing already forming in this area we talked about multiple treatment options with this patient I do feel as though given this is protruding I do want this to continue to progress and recommended removal of the lag screw I did give the option of complete hardware removal, lag screw removal, new fixation. Through shared decision-making with the patient's family they like proceed with just having the lag screw removed. Throughout his postoperative course he has had multiple falls does appear that he had likely had a incomplete greater trochanteric fracture on the left side we followed this back on his imaging which appears to remain stable in good location we did talk about visualizing this intraoperatively with live x-ray lower removing the hardware on the right side. Through shared decision making elected proceed with surgical intervention all questions been answered at this time. Procedure: Patient was seen eval in the preoperative holding area. Consent was reviewed and signed with the patient's family. Patient was then seen evaluated by anesthesia was cleared for surgery was taken back to the operative suite. Patient was then transported onto an OR table. Patient underwent anesthesia per the anesthesia department. Once properly anesthetized we then position for lateral positioning with a beanbag. All bony prominences were well-padded patient was appropriately secured to the bed. At this point in time ax roll was placed. We then brought in fluoroscopic imaging to confirm satisfactory visualization. Next the left lower extremity was then prepped and draped in standard orthopedic fashion. Final timeout performed. Patient received appropriate preoperative antibiotics. Started off with utilizing patient's previous proximal incision to remove the setscrew in order to back out the lag screw. At this point in time I subsequently made an incision with scalpel through skin and subcutaneous tissue switch to electrocautery to maintain hemostasis throughout my dissection. Then I came over the fascia split this longitudinally and then subsequently utilized a wire to confirm and be within the hardware. There was some bony overgrowth in this area I did have to utilize an all over the wire to clear out the bone that is overgrown the top aspect to get my screwdriver into the removal of the setscrew. Once this was established and confirmed on multiple orthogonal fluoroscopic imaging I then subsequently proceeded with removal of the lag screw. At this point in time small incision was made in the previous lag screw incision site I then inserted a initial guidewire once I was able to cannulized this through the lag screw and confirmed to be in satisfactory position I then subsequently advanced the screwdriver to secure the lag screw for having this be backed out. Once I confirmed to have this set and secured I then subsequently removed the set screw and then subsequently backed out the lag screw atraumatically. This once again confirmed to being appropriate removal of the setscrew and the lag screw I then subsequently maintained exact hemostasis throughout the procedure thoroughly irrigated the wound bed. I left the intramedullary paras in as well as the distal interlocking just for added fixation and intramedullary support as we have talked about with the patient's family. At this point in time I then had the x-ray machine go through life fluoroscopic imaging and moved to the right hip which did move as a unit. I was satisfied with removal and the healing at this point in time this was rest was left alone and we subsequently thoroughly irrigated and closed in layered fashion of 0 Vicryl 2-0 Vicryl and michael for the skin Silverlon dressings were placed over them. I then broke down and then we placed patient into supine position and inspected the left hip the left hip did appear to have a incomplete greater trochanter fracture this hip was taken through range of motion and was found to be intact and no evidence of instability or complete fracture was noted. This was determined once again to be left alone as this moved as a unit. Patient was then awakened from anesthesia taken PACU in stable condition. Disposition: Patient taken to PACU in stable condition recovering well family updated on intraoperative findings about removal of the lag screw and setscrew as well as confirming of healing of both of the hips. This point in time he currently is nonambulatory at baseline we will continue to keep him as this will receive appropriate discharge instructions and medications postoperatively planning on him returning to rehab facility will follow-up with him in 2 weeks all questions answered.
--- NOTE | 2024-07-06 17:01 | PM.PACU ---
PACU note Narrative: Patient is a 89-year-old male just underwent a right hip orthopedic hardware removal. Pt transferred to PACU in stable condition. Exam is limited due to patient's dementia. Compartments are soft and compressible. Dressing is dry. pt is awake. Distal pulses are palpable toes are warm and well-perfused. Cap refill is normal and under 2 seconds. Unable to assess any further motor or sensation to leg due to patient's dementia. Pain is controlled. Exam: awake (Exam limited due to dementia) Disposition: discharged
[2024-07-06] MEDS: oxyCODONE-APAP 5-325 mg Tablet 1 TAB PO (17:37)
== END 2024-07-06 18:19 | disposition home or self-care (01) ==
PROVIDERS: Anesthesiology; PCP Family Medicine; Visit Provider Student in an Organized Health Care Education/Training Program
PROC: (CPT 20680; principal; 2024-07-06 15:35)
DX: T84.194A Other mechanical complication of internal fixation device of right femur, initial encounter (principal); Y79.2 Prosthetic and other implants, materials and accessory orthopedic devices associated with adverse incidents; I48.91 Unspecified atrial fibrillation; I10 Essential (primary) hypertension; K21.9 Gastro-esophageal reflux disease without esophagitis; M06.9 Rheumatoid arthritis, unspecified; F03.90 Unspecified dementia, unspecified severity, without behavioral disturbance, psychotic disturbance, mood disturbance, and anxiety; Z87.891 Personal history of nicotine dependence
CPT/HCPCS: 20680; 36415; 73502; 76000; 84132; C1713; J0131; J0690; J1100; J1885; J2405; J2704; J2710; J3010; J3490; J7030

== ENCOUNTER → 2024-07-24 14:32 | Outpatient (BNVA) | payer MEDICARE, SELFPAY | PROVIDERS: PCP Family Medicine; Visit Provider Physician Assistant | DX: S72.141D Displaced intertrochanteric fracture of right femur, subsequent encounter for closed fracture with routine healing; X58.XXXD Exposure to other specified factors, subsequent encounter; Z98.890 Other specified postprocedural states | CPT/HCPCS: 73502; 99024 ==

== ENCOUNTER → 2024-08-21 14:57 | Outpatient (BNVA) | payer MEDICARE, SELFPAY | PROVIDERS: PCP Family Medicine; Visit Provider Physician Assistant | DX: Z98.890 Other specified postprocedural states (principal) | CPT/HCPCS: 73502; 99024 ==